=== PATIENT | male | born 1955 | race Caucasian/White ===

== ENCOUNTER 2024-03-29 13:51 | Outpatient (AMB) | payer OTHER, SELFPAY ==
--- NOTE | 2024-03-29 13:54 | MHC.OFFVIS ---
Vital Signs 03/29/24 13:59 Height 5 ft 7 in Weight 223 lb 2 oz BMI 34.9 BP 137/73 Blood Pressure Location Lt brachial Position Sitting Pulse 87 Pulse Source Pulse Oximeter Pulse Oximetry (%) 99 Oxygen Delivery Method Room Air Intake Visit Reasons: Sciatica Intake Note: Pain today Etcher Enameling Required: No Accompanied by: Self / Same As Patient Allergies No Known Allergies Allergy (Verified 03/29/24 13:58) HPI HPI Sciatica : Details: Patient is a pleasant 68-year-old male with history of diabetes (A1C.8.5, pending Endocrine evaluation), chronic low back pain, CAD s/p coronary artery bypass graft and aortic valve replacement (2022), arthritis, and h/o right knee arthroscopy presents today for initial evaluation of lower back pain with radiation into bilateral lower extremities. Patient denies any recent trauma, injury or falls but reports sleeping fall on ice accident about 5 years ago while he was residing in [place]. Patient recently moved to [place] from [place] in August 2023 and is in the process of establishing care with PCP and specialty providers. Patient reports he completed MRI and physical therapy in 2019 after a fall accident but did not need any spine evaluation or injections. Back pain is axial and also radiates into bilateral buttocks and down into bilateral lateral hip and posterior lower extremities with associated numbness and tingling in both feet. Reports bilateral groin pain with external rotations and weight bearing. Pain is most severe upon getting up in the morning and when getting out of bed with pain rated at 7-8/10 and least severe at evening or rest, rated 1-2/10. Patient reports intermittent stress incontinence and is interested in Urology evaluation. Denies any fever or chills, weakness, burning pain, rash or infection, bowel dysfunction or saddle anesthesia. Patient is a former smoker with history of 2 PPD. Reports very little alcohol consumption and 4 cups of regular coffee daily. He has tried CBD cream in the past and currently utilizes marijuana edibles from local dispensary for sleep and pain with minimal relief. 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 Lives alone and independently. Reports difficulty falling and maintaining sleep due to pain. Oswestry low back pain disability score=7 (mild disability) Location: Lower back radiates down bilateral legs, bilateral hip pain Duration: Chronic pain for over 5 years, slip and fall on ice in 2019 Characteristics of symptom or complaint: Sharp, shooting, radiating, jumping, aching, heavy, throbbing Aggravating or associated factors: Getting out of bed, standing, twisting, climbing pain, weather changes Relieving factors: Rest, gabapentin, Tylenol, Aleve, diclofenac gel Treatment: PT >10 years ago, acupunture, MRI in [address] [facility] Medical History Diabetes mellitus Hyperlipidemia Hypertension Right bundle branch block Surgical History Aortic valve replaced S/P triple vessel bypass (~08/2022) Social History Alcohol intake: current Alcohol intake frequency: holidays/special occasions only Patient Tobacco Use Status: Former Tobacco user Substance Use Type: Marijuana Review of Systems Const All systems reviewed & are unremarkable except as noted in HPI and below Physical Exam Vital Signs: Last Vital Signs Pulse 87 03/29/24 13:59 BP 137/73 03/29/24 13:59 Pulse Ox 99 03/29/24 13:59 Oxygen Delivery Method Room Air 03/29/24 13:59 BMI result Body Mass Index 34.9 General: Appears afebrile. Alert and oriented. Mood and affect appropriate. Follows and participates in conversation appropriately. Respiratory effort is unlabored. No cough. Able to transition from sit to stand unassisted. Ambulates with bilaterally normal heel strike and toe off. General: Yes no CVA tenderness Back/Spine/Pelvis Other: Patient is able to walk and stand on heels and tip toes with no difficulties demonstrating good motor tone. Normal gait, no limping. Can flex forward to 70-75 degrees and extend to 5-10 degrees before experiencing lumbar pain. Demonstrates 5/5 strength of quadriceps bilaterally as well as flexion/dorsiflexion of bilateral feet against resistance. 2+ pedal pulses bilaterally. Straight leg rise with dorsiflexion negative bilaterally. Dimished patellar and achilles reflexes bilaterally. Facet loading test positive bilaterally. Edgar sign, Juanpablo?s, Pelvic compression and Stinchfield tests are positive bilaterally, left>right. Moderate groin pain with I/E hip rotations, right>left. Valsalva maneuver negative. Back: no CVA tenderness Cervical Spine: cervical ROM normal, cervical muscular tenderness, No Cervical spine tenderness and No step off deformity Thoracic/Lumbar Spine: thoracic and lumbar spine normal to inspection, No Thoracic/lumbar spine scar(s), Lasegue's sign negative, straight leg raise negative bilaterally, pain with thoraco-lumbar ROM, paraspinal muscle tenderness bilaterally in the upper thoracic, in the mid lumbar and in the lower lumbar, thoraco-lumbar ROM limited, No thoracic spinal tenderness and lumbar spinal tenderness at L4 and at L5 Pelvis: buttock tenderness bilaterally Sacroiliac joints: bilaterally tender to palpation Extrem General: Yes capillary refill normal, Yes no clubbing, cyanosis or edema and Yes no calf tenderness Results Reviewed Results Reviewed: No imaging results are available for review today. Assessment & Plan Assessment & Plan (1) DJD (degenerative joint disease), lumbar: Code(s): M47.816 - Spondylosis without myelopathy or radiculopathy, lumbar region Category: Medical (2) Low back pain radiating to both legs: Code(s): M54.50 - Low back pain, unspecified; M79.604 - Pain in right leg; M79.605 - Pain in left leg Category: Medical (3) Lumbosacral spondylosis: Code(s): M47.817 - Spondylosis without myelopathy or radiculopathy, lumbosacral region Category: Medical (4) Bilateral hip pain: Code(s): M25.551 - Pain in right hip; M25.552 - Pain in left hip Category: Medical (5) Sacroiliac joint pain: Code(s): M53.3 - Sacrococcygeal disorders, not elsewhere classified Category: Medical (6) Male stress incontinence: Code(s): N39.3 - Stress incontinence (female) (male) Category: Medical Plan Lumbar spine and hip imaging to assess degree of degenerative changes, any subluxation, listhesis, compression fractures or pars defects. Recommend formal physical therapy to reduce pain and optimize mobility, improve strength, proprioception, and neuromuscular coordination. Script provided. Discussed interventional treatments for axial and radicular low back pain and bilateral hip pain with SI joint pain components. Patient has pending Endocrinology evaluation for diabetes with elevated A1c levels >8.5 per patient. Urology referral for further evaluation of stress incontinence. All questions and concerns have been answered and patient agreed with the treatment plan. Follow-up for x-ray results and sooner as needed. Orders: Orders XR hip BI w PEL1V Today M25.551 - Pain in right hip, M25.552 - Pain in left hip, M53.3 - Sacrococcygeal disorders, not elsewhere classified PT Evaluation and Treatment Today M25.551 - Pain in right hip, M25.552 - Pain in left hip, M47.816 - Spondylosis without myelopathy or radiculopathy, lumbar region, M47.817 - Spondylosis without myelopathy or radiculopathy, lumbosacral region, M53.3 - Sacrococcygeal disorders, not elsewhere classified, M54.50 - Low back pain, unspecified, M79.604 - Pain in right leg, M79.605 - Pain in left leg XR lumbar spine 4V min Today M47.816 - Spondylosis without myelopathy or radiculopathy, lumbar region, M47.817 - Spondylosis without myelopathy or radiculopathy, lumbosacral region, M54.50 - Low back pain, unspecified, M79.604 - Pain in right leg, M79.605 - Pain in left leg Referrals Urology Referral E11.9 - Type 2 diabetes mellitus without complications, N39.3 - Stress incontinence (female) (male) Coding Level of Care Code New Pt Level 4 (99198) Complex EM visit Add On G2211 Diagnoses DJD (degenerative joint disease), lumbar M47.816 Low back pain radiating to both legs M54.50; M79.604; M79.605 Lumbosacral spondylosis M47.817 Bilateral hip pain M25.551; M25.552 Sacroiliac joint pain M53.3 Male stress incontinence N39.3
[2024-03-29 13:59] VITALS: BP 137/73; PULSE 87; O2SAT 99; BMI 34.9
== END 2024-03-29 14:38 | disposition home or self-care (01) ==
PROVIDERS: PCP Registered Nurse; Referring Provider Registered Nurse; Visit Provider Nurse Practitioner Family
DX: M47.816 Spondylosis without myelopathy or radiculopathy, lumbar region (principal); M54.50 Low back pain, unspecified; M79.604 Pain in right leg; M79.605 Pain in left leg; M47.817 Spondylosis without myelopathy or radiculopathy, lumbosacral region; M25.551 Pain in right hip; M25.552 Pain in left hip; M53.3 Sacrococcygeal disorders, not elsewhere classified; N39.3 Stress incontinence (female) (male)
CPT/HCPCS: 99204

== ENCOUNTER 2024-03-29 13:51 | Outpatient (REF) | payer OTHER, SELFPAY ==
--- NOTE | ~2024-03-29 | XR_ITS ---
EXAMINATION: XR LUMBAR SPINE CLINICAL INFORMATION: Spondylosis without myelopathy or radiculopathy, lumbar region M47.816. COMPARISON: None TECHNIQUE: 5 views of the lumbar spine. FINDINGS: Normal alignment and lumbar lordosis. Mild to moderate multilevel degenerative disc disease most prominent at L4-L5, and facet arthrosis of the lower lumbar levels. No fracture. No spondylolysis. XR/XR lumbar spine 4V min IMPRESSION: Mild to moderate multilevel degenerative disc disease most prominent at L4-L5. Electronically signed by: Myke Zaldivar MD 05/06/2024 12:03 PM [facility]
--- NOTE | ~2024-03-29 | XR_ITS ---
EXAMINATION: XR BILATERAL HIPS WITH AP PELVIS CLINICAL INFORMATION: Pain in right hip M25.551. COMPARISON: None available. TECHNIQUE: AP and frog-leg lateral views of each hip and an AP view of the pelvis. FINDINGS: Mild bilateral hip osteoarthritis. No acute fracture or malalignment. Enthesopathy of the greater trochanters and ischial tuberosities. Prominent vascular calcifications. XR/XR hip BI w PEL 1V IMPRESSION: Mild bilateral hip osteoarthritis. No acute fracture. Electronically signed by: Myke Zaldivar MD 05/06/2024 12:05 PM [facility]
--- OUTSIDE RECORDS SUMMARY | 2024-03-31 16:15 | XMS_ITS | Continuity of Care Document ---
Author Organization [facility] Address [facility] [address] [facility] [address] [place] [phone] Phone Care Team Providers Care Equal Opportunity Director Name Role Phone Campbell ARREAGA, FACP, CDE, Clint Unavailable Yudi vailable Allergies, Adverse Reactions, Alerts Substance Reaction Status Criticality No Known Allergies Active No Inform ation Medications Medication Instructions Dosage Effective Dates (start - stop) Status Comments XIGDUO XR 5-1000MG TB24 TAKE TWO TABLETS BY MOUTH EVERY DAY IN THE MORNING WITH FOOD 2 tablet - Active Soliqua 100/33 100 unit-33 mcg/mL subcutaneous insulin pen 40 units per day - Active 90 day sup ply OneTouch Verio test strips use by test route 3 times every day Not Available - Active FreeStyle Elina 3 Sensor device Change every 14 days - Active BD PEN NEEDLE SHORT 31G X 8 MM MISC USE 1 DAILY 1 - Active ATORVASTATIN CALCIUM 80MG TABS TAKE ONE TABLET BY MOUTH EVERY DAY - Active ORDER: Vitamin B12, 500 ???g a day - Active metoprolol succinate ER 25 mg tablet,extended release 24 hr take 1 tablet by ORAL route every day 25 MG - Active aspirin 81 mg chewable tablet chew 1 tablet by oral route every day 81 MG - Active Procedures Procedure Date Hemoglobin; A1C Diast Bp 80-89 Mm Hg OFFICE/OUTPATIENT VISIT, EST-Detailed Se p Diast Bp < 80 Mm Hg Syst Bp < 130 Mm Hg OFFICE/OUTPATIENT VISIT, EST-Detailed Alba y Diast Bp < 80 Mm Hg Syst Bp < 130 Mm Hg OFFICE/OUTPATIENT VISIT, EST-Detailed Ja n Hemoglobin; A1C Diast Bp < 80 Mm Hg Syst Bp < 130 Mm Hg OFFICE/OUTPATIENT VISIT, EST-Detailed Ju Office/Outpatient Visit, Est Diast Bp 80-89 Mm Hg Syst Bp < 130 Mm Hg OFFICE/OUTPATIENT VISIT, EST-Detailed Ap Hemoglobin; A1C Diast Bp < 80 Mm Hg Syst Bp >=130-139Mm Hg OFFICE/OUTPATIENT VISIT, EST-Detailed Oc Methylprednisolone 40 MG inj Marcaine LIDOCAINE 5+ CC sterile syringe&needle Drain/Inject, Joint/Bursa Office/Outpatient Visit, Est INJ PARAVERT F JNT L/S 1 LEV Infectious agent detection by nucleic ac id Office/Outpatient Visit, Est Office/Outpatient Visit, Est Office/Outpatient Visit, Est Diast Bp 80-89 Mm Hg Syst Bp >=130-139Mm Hg OFFICE/OUTPATIENT VISIT, EST-Detailed Ap X-Ray Exam C-Spine, AP & Lat Office/Outpatient Visit, Est Wrist cock-up non-molded Wrist cock-up non-molded Office/Outpatient Visit, Est X-Ray knee, complete Office/Outpatient Visit, Est Nrv cndj tst 5-6 studies Electromyography With Nerve Conduction < 6 Muscles Office/Outpatient Visit, New X-Ray Hand, 3 Views 5+ CC sterile syringe&needle Methylprednisolone 20 MG inj LIDOCAINE Inj Tendon Sheath/Ligament Office/Outpatient Visit, New Diast Bp 80-89 Mm Hg Syst Bp >=130-139Mm Hg OFFICE/OUTPATIENT VISIT, EST-Detailed No OFFICE/OUTPATIENT VISIT, EST-Detailed Fe IMMUNIZATION ADMIN RIV4 VACC RECOMBINANT DNA IM Diast Bp < 80 Mm Hg Syst Bp < 130 Mm Hg OFFICE/OUTPATIENT VISIT, EST-Detailed Oc OFFICE/OUTPATIENT VISIT, EST-Detailed Ma Hemoglobin; A1C OFFICE/OUTPATIENT VISIT, EST-Detailed Ja COLONOSCOPY AND BIOPSY Moderate Sedation; First 15 Minutes Moderare Sedation; Each Addl 15 Minutes COLON W/BIOPSY OFFICE/OUTPATIENT VISIT, NEW OFFICE/OUTPATIENT VISIT, EST-Detailed Se OFFICE/OUTPATIENT VISIT, EST-Detailed Ap OFFICE/OUTPATIENT VISIT, EST-Detailed De Hemoglobin; A1C OFFICE/OUTPATIENT VISIT, EST-Detailed Se Office/Outpatient Visit, Est Office/Outpatient Visit, New OFFICE/OUTPATIENT VISIT, EST-Detailed Ma Hemoglobin; A1C OFFICE/OUTPATIENT VISIT, EST-Detailed Oc OFFICE/OUTPATIENT VISIT, EST-Detailed Ma GLUCOSE BLOOD TEST OFFICE/OUTPATIENT VISIT, EST-Detailed Se GLUCOSE BLOOD TEST OFFICE/OUTPATIENT VISIT, EST-Detailed Ma GLUCOSE BLOOD TEST OFFICE/OUTPATIENT VISIT, EST-Complex May GLUCOSE BLOOD TEST OFFICE/OUTPATIENT VISIT, EST-Detailed Ma GLUCOSE BLOOD TEST OFFICE/OUTPATIENT VISIT, EST-Detailed No GLUCOSE BLOOD TEST OFFICE/OUTPATIENT VISIT, EST-Detailed Au GLUCOSE BLOOD TEST OFFICE/OUTPATIENT VISIT, EST-Detailed Ma GLUCOSE BLOOD TEST OFFICE/OUTPATIENT VISIT, EST-Detailed Fe GLUCOSE BLOOD TEST OFFICE/OUTPATIENT VISIT, EST GLUCOSE BLOOD TEST OFFICE/OUTPATIENT VISIT, EST GLUCOSE BLOOD TEST OFFICE/OUTPATIENT VISIT, EST GLUCOSE BLOOD TEST OFFICE/OUTPATIENT VISIT, EST GLUCOSE BLOOD TEST OFFICE/OUTPATIENT VISIT, EST OFFICE/OUTPATIENT VISIT, EST GLUCOSE BLOOD TEST FLU VACCINE AGE 3 & OVER, IM IMMUNIZATION ADMIN OFFICE/OUTPATIENT VISIT, EST GLUCOSE BLOOD TEST OFFICE/OUTPATIENT VISIT, EST OFFICE/OUTPATIENT VISIT, EST GLUCOSE BLOOD TEST OFFICE/OUTPATIENT VISIT, EST OFFICE/OUTPATIENT VISIT, EST GLUCOSE BLOOD TEST Office/Outpatient Visit, New REFRACTION OFFICE/OUTPATIENT VISIT, NEW GLUCOSE BLOOD TEST Office Consultation Advance Directives Directive Yes / No Effective Date File Name No Information Encounters Encounter Description Practice Location Reason(s) For Visit Diagnoses Date Provider Providers Copied on Encounter [facility] [facility] [address], [place], [place], [id number], [place] tel:[phone] [facility] No Information [address] [place] [address], [facility] [place], [place], [facility], . tel:[phone] Referring Provider: Rafael Lerma [address] [place] [address] [facility] [place], [place], [facility]. tel:[phone] [facility] [place] [address], [place], [place], [address] [place] [address], tel:[phone] [facility] No Information [address] [place] [address], [facility] [place], [place], [facility], . tel:[phone] [facility] [address], [address] [place] [address], tel:[phone] [facility] No Information [address] [place] [address], [facility] [place], [place], [facility], . 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 [place] [address], [facility] [place], [facility], . tel:[phone] Referring Provider: Rafael Lerma [address] [place] [address] [facility] [place], [address]. tel:[phone] [facility] [place] [address], [place], [place], [id number], tel:[phone] [facility] No Information [address] [place] [address], [facility] [place], [address], [place]. tel:[phone] OFFICE/OUTPAT IENT VISIT, EST-Detailed [facility] [place] [address], [place], [place], [id number], tel:[phone] [facility] diabetes (chief complaint) Type 2 diabetes mellitus with hyperglycemi aBilateral carotid bruitsMixed hyperlipidem iaB12 deficiencyTy pe 2 diabetes mellitus with diabetic nephropathyB papo mass index [BMI] 33.0-33.9, adult August-[address] [place] [address], [facility] [place], [address], [place]. tel:[phone] Consulting Provider: Eloise Paz MD, [address] [place] [address], [phone]. Referring Provider: Rafael Lerma Dr[facility] [address] [facility] [place], [address]. tel:[phone] [facility] [place] [address], [place], [place], [id number], tel:[phone] [facility] No Information [address] [place] [address], [facility], [address], [place]. tel:[phone] OFFICE/OUTPAT IENT VISIT, EST-Detailed [facility] [address], [id number], tel:[phone] [facility] diabetes (chief complaint) Type 2 diabetes mellitus with hyperglycemi aType 2 diabetes mellitus with diabetic nephropathyB ilateral carotid bruitsMixed hyperlipidem iaCKD (chronic kidney disease), stage IBody mass index [BMI] 33.0-33.9, bsqleG65 deficiencyBo dy mass index [BMI] 35.0-35.9, adult [address] [place] [address], [facility] [place], [place], [facility], . tel:[phone] Referring Provider: Rafael Lerma [address] [place] [address] [facility] [place], [place], [facility]. tel:[phone] OFFICE/OUTPAT IENT VISIT, EST-Detailed [facility] [address], [id number], tel:[phone] [facility] diabetes (chief complaint) Type 2 diabetes mellitus with hyperglycemi aMixed hyperlipidem iaType 2 diabetes mellitus with diabetic nephropathyB ilateral carotid bruitsBody mass index [BMI] 33.0-33.9, adultEssenti al (primary) hypertension [address] [facility] Just[place], [facility], [address], . tel:[phone] Referring Provider: Rafael Lerma Dr[facility] [place] [facility] [place], [place], [facility]. tel:[phone] Office/Outpat ient Visit, Est [facility], [address], [place], [address], [place] tel:[phone] [facility] Right hip pain (chief complaint) Unilateral primary osteoarthrit is, right hipBody mass index [BMI] 33.0-33.9, adultLow back pain, unspecified 2 Lee James. [address] [facility], [facility], [place], [address], [place]. tel:[phone] Referring Provider: Jacob Howard, [address] [facility], [place], [address]. tel:[phone] OFFICE/OUTPAT IENT VISIT, EST-Detailed [facility] [facility] [address] [facility], [place], [place], [address], tel:[phone] [facility] diabetes (chief complaint) Type 2 diabetes mellitus with hyperglycemi aCKD (chronic kidney disease), stage IBody mass index [BMI] 32.0-32.9, [id number] deficiencyBi lateral carotid bruitsEssent ial (primary) hypertension Muscle painBody mass index [BMI] 33.0-33.9, adult Jul- 2 Campbell Jaramillo. [address] [place] [address], [facility] [place], [address], [place]. tel:[phone] Referring Provider: Clint Hightower I, Rafael Cont[address]ras Dr[address] [facility] [address] [facility] [place], [address]. tel:[phone] OFFICE/OUTPAT IENT VISIT, EST-Detailed [facility] [facility] [address] [facility], [place], [place], [id number], [place] tel:[phone] [facility] diabetes (chief complaint) Type 2 diabetes mellitus with hyperglycemi aMixed hyperlipidem iaB12 deficiencyBi lateral carotid bruitsCKD (chronic kidney disease), stage IType 2 diabetes mellitus with diabetic nephropathyB papo mass index [BMI] 32.0-32.9, adult Oct- 1 Campbell Jaramillo. [address] [place] [address], [facility] [place], [address], [place]. tel:[phone] Referring Provider: Clint Hightower I, [address] [facility] [address] [facility] [place], [address]. [phone] Office/Outpat ient Visit, Est [facility], [address] [address], [place], [place], [address], [place] tel:[phone] [facility] Radiculopath y, cervical regionBody mass index [BMI]30.0-30 .9, adultCervica l disc disorder, unspecified, unspecified cervical regionImping ement syndrome of left shoulder Sep-2 1 Louis Kumar. [address], [address] , [place], [address], [place]. tel:[phone] Referring Provider: José Myers, [address] [facility], [place], [address]. tel:[phone] [facility], [address] [address], [place], [place], [address], [place] tel:[phone] [facility] No Information Randell- 1 Louis Kumar. [address], [facility] , [place], [address], [place]. tel:[phone] Referring Provider: José Myers, [address] [facility] , [place], [address]. tel:[phone] [facility], [address] [address], [place], [place], [address], [place] tel:[phone] [facility] Encounter for other preprocedura l examination 1 Louis Kumar. [address], [address] , [place], [address], [place]. tel:[phone] Referring Provider: Cristina Rider, [address] [address], [place], [address]. [phone] Office/Outpat ient Visit, Est [facility], [address] [address], [place], [place], [address], [place] tel:[phone] [facility] CervicalgiaR adiculopathy , cervical regionOther spondylosis with radiculopath y, cervical region 1 Louis Kumar. [address], [address] , [place], [address], [place]. tel:[phone] Referring Provider: José Myers, [address] [facility] , [place], [address]. [phone] Office/Outpat ient Visit, Est [facility], [address] [address], [place], [place], [address], [place] tel:[phone] [facility] CervicalgiaR adiculopathy , cervical region 1 Louis Kumar. [address], [address] , [place], [address], [place]. tel:[phone] Referring Provider: José Myers, [address] [facility] , [place], [address]. tel:[phone] Office/Outpat ient Visit, Est [facility], [address] [address], [place], [place], [address], [place] tel:[phone] [facility] Pain in right kneeUnilater al primary osteoarthrit is, right kneeUnspecif ied internal derangement of right kneeDerangem ent of unspecified medial meniscus due to old tear or injury, right kneeSprain of anterior cruciate ligament of right knee, initial encounterBod y mass index [BMI] 31.0-31.9, adult August-- 1 Lee James. [address] [facility], [facility] , [place], [address], [place]. tel:[phone] Referring Provider: Jacob Howard, [address] [facility], [place], [address]. tel:[phone] OFFICE/OUTPAT IENT VISIT, EST-Detailed [facility] [facility] [address] [facility], [place], [place], [address], [place] tel:[phone] [facility] diabetes (chief complaint) Type 2 diabetes mellitus with hyperglycemi aMixed hyperlipidem iaEssential (primary) hypertension CKD (chronic kidney disease), stage IType 2 diabetes mellitus with diabetic nephropathyB ilateral carotid rcxvyfR02 deficiencyBo dy mass index [BMI] 31.0-31.9, adult Jul-2 1 Campbell Jaramillo. [address] [place] [address], [facility] [place], [address], [place]. tel:[phone] Referring Provider: Clint Hightower I, [address] [place] [address] [facility] [place], [address]. tel:[phone] Office/Outpat ient Visit, Est [facility], [address] [facility], [place], [place], [address], [place] tel:[phone] [facility] Neck pain (chief complaint) CervicalgiaB papo mass index [BMI] 33.0-33.9, adultRadicul opathy, cervical region Jul- 1 Louis Kumar. [address], [facility], [place], [address], . tel:[phone] Referring Provider: Thien Bush, [address] [facility], [place], [address]. tel:[phone] Office/Outpat ient Visit, Est [facility], [address] [address], [place], [place], [address], [place] tel:[phone] [facility] Carpal tunnel syndrome, right upper limbTrigger finger, left ring fingerBody mass index [BMI] 33.0-33.9, adultPain in left wristPain in right wrist Apr- 1 Eleazar Neumann. [address] , [place], [address], . tel:[phone] Office/Outpat ient Visit, Est [facility], [address] [address], [place], [place], [address], [place] tel:[phone] [facility] Right knee pain (chief complaint) Pain in right kneeUnilater al primary osteoarthrit is, right kneeUnspecif ied internal derangement of right kneeDerangem ent of unspecified medial meniscus due to old tear or injury, right kneeSprain of anterior cruciate ligament of right knee, initial encounterBod y mass index [BMI] 33.0-33.9, adult Mar-0 - 1 Lee James. [address] , [place], [address], [place]. tel:[phone] Office/Outpat ient Visit, [facility], [address] [address], [place], [place], [address], [place] tel:[phone] [facility] Carpal tunnel syndrome, right upper limbBody mass index [BMI] 33.0-33.9, adult Mar-0 - 1 Louis Kumar. [address] , [place], [address], [place]. tel:[phone] Office/Outpat ient Visit, [facility], [address] [address], [place], [place], [address], [place] tel:[phone] [facility] Right hand pain (chief complaint) Carpal tunnel syndrome, right upper limbTrigger finger, left ring fingerBody mass index [BMI] 33.0-33.9, adult Fe- 1 Eleazar Neumann. [address], [facility] , [place], [address], [place]. tel:[phone] Referring Provider: Thien Bush, [address] [facility], [place], [address]. 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 [address] [facility] [address], [facility] [place], [place], [facility], [place]. tel:[phone] Referring Provider: Clint Hightower I, Rafael Cont[address]ras Dr[address] [facility] [address] [facility] [place], [address]. tel:[phone] OFFICE/OUTPAT IENT VISIT, EST-Detailed [facility] [address] [facility], [place], [place], [address], tel:[phone] [facility] diabetes (chief complaint) Type 2 diabetes mellitus with hyperglycemi aType 2 diabetes mellitus with diabetic nephropathyC KD (chronic kidney disease), stage IEssential (primary) hypertension Mixed hyperlipidem iaB12 deficiencyLe ft ankle swellingHand numbnessBody mass index (BMI) 35.0-35.9, adultBilater al carotid bruits 8-[address], [facility] [place], [address], [place]. tel:[phone] Referring Provider: Clint Hightower I, Rafael Contreras Dr[address] [facility] [address] [facility] [place], [place], [facility]. tel:[phone] OFFICE/OUTPAT IENT VISIT, EST-Detailed [facility] [address], [id number], tel:[phone] [facility] diabetes (chief complaint) Hand numbnessType 2 diabetes mellitus with hyperglycemi aMixed hyperlipidem iaCKD (chronic kidney disease), stage IType 2 diabetes mellitus with diabetic nephropathyE ssential (primary) hypertension Body mass index (BMI) 34.0-34.9, adult Oct 0-[address] [facility] 101, [facility] [place], [address], [place]. tel:[phone] Referring Provider: Clint Hightower I, Rafael [address]ras Dr[address] [facility] [address] [facility] [place], [address]. tel:[phone] OFFICE/OUTPAT IENT VISIT, EST-Detailed [facility] [place] [address], [place], [place], [id number], tel:[phone] [facility] diabetes (chief complaint) Type 2 diabetes mellitus with hyperglycemi aType 2 diabetes mellitus with diabetic nephropathyC KD (chronic kidney disease), stage IEssential (primary) hypertension Mixed hyperlipidem iaBody mass index (BMI) 34.0-34.9, adult [address] [facility] 101, [facility] [place], [facility], . tel:[phone] Referring Provider: Clint Hightower I, Rafael Contreras Dr[address] [facility] [address] [facility] [place], [place], [facility]. tel:[phone] OFFICE/OUTPAT IENT VISIT, EST-Detailed [facility] [address], [place], [place], [address], [place] tel:[phone] [facility] diabetes (chief complaint) Type 2 diabetes mellitus with diabetic nephropathyT ype 2 diabetes mellitus with hyperglycemi aCKD (chronic kidney disease), stage IEssential (primary) hypertension Mixed hyperlipidem ia [address], [facility] [place] [place], [address], [place]. tel:[phone] Referring Provider: Clint Hightower I, Rafael [address] [facility] [place], [address]. tel:[phone] [facility], [address] [facility], [address], [place], [address], [place] tel:[phone] [facility] No Information 9 Paul Westbrook. [address] [place] [address], [address], [place], [id number], [place]. tel:[phone] Referring Provider: Cristina Rider, [address] [facility] [address], [place], [address]. tel:[phone] [facility], [address] [facility] [address], [place], [address], [place] tel:[phone] [facility] No Information 9 Paul Westbrook. [address] [facility], [address], [place], [address], [place]. tel:[phone] OFFICE/OUTPAT IENT VISIT, NEW [facility], [address] [facility] [address], [address], [place], [address], tel:[phone] [facility] Colon Cancer Screening (chief complaint) Colon cancer screening 8 Paul Westbrook. [address] [facility], [address], [place], [address], [place]. tel:[phone] Referring Provider: Cristina Rider, [address] [place] [address], [address]. tel:[phone] [facility], [address] [place] [address], [address], tel:[phone] [facility] No Information 8 No Informatio n OFFICE/OUTPAT IENT VISIT, EST-Detailed [facility] [facility] [address], [place], [place], [address], [place] tel:[phone] [facility] diabetes (chief complaint) Type 2 diabetes mellitus with hyperglycemi aEssential (primary) hypertension B12 deficiencyTy pe 2 diabetes mellitus with diabetic nephropathyM ixed hyperlipidem iaCKD (chronic kidney disease), stage IFinger numbnessHear t murmur 8 Campbell Jaramillo. [address] [facility] 101, [facility] [place], [place], [facility], [place]. tel:[phone] Referring Provider: Clint Hightower I, [address] [facility] 101 [facility] [place], [place], [facility]. tel:[phone] OFFICE/OUTPAT IENT VISIT, EST-Detailed [facility] [address] [address], [place], [place], [id number], tel:[phone] [facility] diabetes (chief complaint) Type 2 diabetes mellitus with hyperglycemi aMixed hyperlipidem iaEssential (primary) hypertension CKD (chronic kidney disease), stage IType 2 diabetes mellitus with diabetic nephropathyB 12 deficiency Jul-0 3201 8 Campbell Baez [address] [facility] Justyn, [facility] [place], [place], [facility], . tel:[phone] Referring Provider: Rafael Lerma Dr. [facility] 101 [facility] [place], [place], [facility]. tel:[phone] OFFICE/OUTPAT IENT VISIT, EST-Detailed [facility] [address] [address], [place], [place], [address] [place] [address], tel:[phone] [facility] -[place] diabetes (chief complaint) Type 2 diabetes mellitus with hyperglycemi aType 2 diabetes mellitus with diabetic nephropathyM ixed hyperlipidem iaEssential (primary) hypertension Leg cramps Dec-0 7 Campbell Baez [address] [facility] 101, [facility] [place], [facility], . tel:[phone] Referring Provider: Clint Hightower I, Rafael Contreras Dr. [facility] 101 [facility] [place], [facility]. tel:[phone] OFFICE/OUTPAT IENT VISIT, EST-Detailed [facility] [address] [place] [address], [place], [place], [address] [place] [address], tel:[phone] [facility] -[place] diabetes (chief complaint) Type 2 diabetes mellitus with hyperglycemi aType 2 diabetes mellitus with diabetic nephropathyM ixed hyperlipidem iaEssential (primary) hypertension CKD (chronic kidney disease), stage I Sep-0 7 Campbell Baez [address] [place] [address], [facility], [address], [place]. tel:[phone] Referring Provider: Clint Hightower I, [address] [place] [address] [facility] [place], [address]. tel:[phone] Office/Outpat ient Visit, [facility], [address] [address], [place], [place], [id number], [place] tel:[phone] [facility] [place] Low back painOther intervertebr al disc degeneration , lumbar regionRadicu lopathy, lumbar regionOther intervertebr al disc displacement , lumbar region Nov- Salam Brenda. [address], [facility] , [place], [address], [place]. tel:[phone] Office/Outpat ient Visit, [facility], [address] [address], [place], [place], [id number], [place] tel:[phone] [facility] [place] Back pain and Back and left leg pain (chief complaint) Low back painOther intervertebr al disc degeneration , lumbar regionRadicu lopathy, lumbar regionOther intervertebr al disc displacement , lumbar region Sep- 7 Salam Brenda. [address] , [place], [address], [place]. tel:[phone] [facility] [facility] [address] [facility], [place], [place], [address], [place] tel:[phone] Diab And [facility] -[place] Essential (primary) hypertension Mixed hyperlipidem iaType 2 diabetes mellitus with diabetic nephropathy Jun-2 7 Campbell Marc. Rafael Alejandra, [facility] [place], [place], [facility], . tel:[phone] OFFICE/OUTPAT IENT VISIT, EST-Detailed [facility] [address] [address], [place], [place], [address], tel:[phone] [facility] -[place] diabetes (chief complaint) Type 2 diabetes mellitus with diabetic nephropathyT ype 2 diabetes mellitus with hyperglycemi aMixed hyperlipidem iaEssential (primary) hypertension Jun- 7 Campbell Alejandra, [facility] [place], [facility], . tel:[phone] Referring Provider: Rafael Lerma Dr. [facility] [facility] [place], [place], [facility]. tel:[phone] OFFICE/OUTPAT IENT VISIT, EST-Detailed [facility] [address] [address], [place], [place], [address], tel:[phone] [facility] -[place] diabetes (chief complaint) Type 2 diabetes mellitus with diabetic nephropathyM ixed hyperlipidem iaEssential (primary) hypertension Type 2 diabetes mellitus with hyperglycemi a 6 Campbell Alejandra, [facility] [place], [facility], . tel:[phone] Referring Provider: Rafael Lerma Dr. [facility] [facility] [place], [facility]. 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, [facility] [place], [facility], . tel:[phone] Referring Provider: Rafael Lerma Dr. [facility] [facility] [place], [place], [facility]. tel:[phone] OFFICE/OUTPAT IENT VISIT, EST-Detailed [facility] [address] [place] [address], [place], [place], [address], tel:[phone] [facility] -[place] diabetes (chief complaint) Diabetes II, Uncontrolled , W/Renal Manifestatio nsPROTEINURI AHypertensio n, BenignMixed Hyperlipidem ia Dec- [address] [facility] 101, [facility] [place], [facility], . tel:[phone] Referring Provider: Rafael Lerma Dr. [facility] 101 [facility] [place], [place], [facility]. tel:[phone] OFFICE/OUTPAT IENT VISIT, EST-Detailed [facility] [address] [address], [place], [place], [address], tel:[phone] [facility] -[place] diabetes (chief complaint) Diabetes II, Uncontrolled , W/Renal Manifestatio nsHypertensi on, BenignMixed Hyperlipidem iaPROTEINURI A May- [address] [place] [address], [facility] [place], [place], [facility], . tel:[phone] Referring Provider: Clint Hightower I, Rafael Contreras Dr. [facility] Just[place] [facility] [place], [place], [facility]. tel:[phone] OFFICE/OUTPAT IENT VISIT, EST-Complex [facility] [address] [address], [place], [place], [address], tel:[phone] [facility] -[place] diabetes (chief complaint) Diabetes II, Uncontrolled , W/Renal Manifestatio nsHypertensi on, BenignMixed Hyperlipidem iaPROTEINURI AErectile Dysfunction 0-[address] [place] [address], [facility] [place], [facility], . tel:[phone] Referring Provider: Clint Hightower I, Rafael [address]ras [address] [place] [address] [facility] [place], [place], [facility]. tel:[phone] [facility] [address] [place] [address], [place], [place], [address], tel:[phone] [facility] Diabetes II, Uncontrolled , W/Renal Manifestatio ns b-0 [address] [facility] Just[place], [facility] [place], [facility], . tel:[phone] OFFICE/OUTPAT IENT VISIT, EST-Detailed [facility] [address] [address], [place], [place], [address], tel:[phone] [facility] -[place] diabetes (chief complaint)Nu rse Comments (chief complaint) Hypertension , BenignMixed Hyperlipidem iaErectile DysfunctionP ROTEINURIA 4 Campbell Baez [address] [facility], [facility] [place], [facility], . tel:[phone] OFFICE/OUTPAT IENT VISIT, EST-Detailed [facility] [address] [address], [place], [place], [address], tel:[phone] [facility] -[place] diabetes (chief complaint)er ectile dysfunction (chief complaint) Diabetes II, Uncontrolled , W/Renal Manifestatio nsPROTEINURI AMixed Hyperlipidem iaHypertensi on, BenignErecti le Dysfunction 3 Campbell Zamora [facility], [facility] [place], [facility], . tel:[phone] OFFICE/OUTPAT IENT VISIT, EST-Detailed [facility] [address] [address], [place], [place], [address], tel:[phone] [facility] -[place] diabetes (chief complaint) Diabetes II, Uncontrolled , W/Renal Manifestatio nsHypertensi on, BenignMixed Hyperlipidem iaPROTEINURI A 3 Campbell Zamora 101, [facility] [place], [place], [facility], [place]. tel:[phone] OFFICE/OUTPAT IENT VISIT, EST-Detailed [facility] [address] [address], [place], [place], [address], tel:[phone] [facility] -[place] diabetes (chief complaint) Diabetes II, Uncontrolled , W/Renal Manifestatio nsMixed Hyperlipidem iaHypertensi on, Benign 3 Campbell Baez [address], [facility] [place], [place], [facility], . tel:[phone] OFFICE/OUTPAT IENT VISIT, EST-Detailed [facility] [address] [address], [place], [place], [address], [phone] [facility] -[place] diabetes type 2 (chief complaint) Diabetes II, Uncontrolled , W/Renal Manifestatio nsMixed Hyperlipidem iaHypertensi on, BenignPROTEI OSCAR 3 Campbell Clint. [address], [facility] [place], [place], [facility], . tel:[phone] OFFICE/OUTPAT IENT VISIT, EST [facility] [address], [place], [place], [address], tel:[phone] Di[facility] -[place] diabetes (chief complaint) Diabetes II, Uncontrolled , W/Renal Manifestatio nsHypertensi on, BenignMixed Hyperlipidem iaPROTEINURI A 2 Campbell Clint. [address], [facility] [place], [facility], . tel:[phone] OFFICE/OUTPAT IENT VISIT, EST [facility] [place] [address], [place], [place], [address], tel:[phone] [facility] -[place] diabetes (chief complaint) Diabetes II, Uncontrolled , W/Renal Manifestatio nsPROTEINURI AHypertensio n, BenignMixed Hyperlipidem ia 2 Campbell Clint. [address], [facility] [place], [place], [facility], . tel:[phone] OFFICE/OUTPAT IENT VISIT, EST [facility] [facility] [address], [place], [place], [address], tel:[phone] Di[facility] -[place] diabetes type 2 (chief complaint) Diabetes II, Uncontrolled Diabetes II, Uncontrolled , W/Renal Manifestatio nsMixed Hyperlipidem iaHypertensi on, BenignPROTEI OSCAR 2 Campbell Clint. [address] 101, [facility], [place], [place], [facility], [place]. tel:[phone] OFFICE/OUTPAT IENT VISIT, EST [facility] [address] [facility], [place], [place], [address], tel:[phone] [facility] -[place] diabetes (chief complaint) PROTEINURIAD iabetes II, Uncontrolled , W/Renal Manifestatio nsMixed Hyperlipidem iaHypertensi on, BenignJOINT PAIN-SHLDERP ROTEINURIA 2 Campbell Clint. [address] 101, [facility] [place], [place], [facility], . tel:[phone] OFFICE/OUTPAT IENT VISIT, EST [facility] [address] [facility], [place], [place], [address], tel:[phone] [facility] -[place] diabetes (chief complaint) Diabetes II, Uncontrolled , W/Renal Manifestatio nsHypertensi on, BenignMixed Hyperlipidem iaJOINT PAIN-SHLDER Fe 2 [place]pe[place] Clint. [address] 101, [facility] [place], [place], [facility], . tel:[phone] [facility], [address] [facility], [place], [place], [address], [place] tel:[phone] [facility] No Information 2 Oliver Ortiz. [address] [place], [place], [address], [place]. tel:[phone] OFFICE/OUTPAT IENT VISIT, EST [facility], [address] [place], [place], [address], [place] tel:[phone] [facility] No Information 2 Oliver Ortiz. [address] [place], [place], [address], [place]. tel:[phone] OFFICE/OUTPAT IENT VISIT, EST [facility] [address] [address], [place], [place], [address], [place] tel:[phone] [facility] -[place] diabetes (chief complaint)Er ectile Dysfunction (chief complaint) Mixed Hyperlipidem iaHypertensi on, BenignDiabet es II, Uncontrolled , W/Renal Manifestatio nsErectile DysfunctionI nfluenza Vaccine 1 Campbell Baez [address], [facility] [place], [address], . tel:[phone] OFFICE/OUTPAT IENT VISIT, EST [facility] [address] [facility], [place], [place], [address], tel:[phone] [facility] -[place] diabetes (chief complaint) Diabetes II, Uncontrolled , W/Renal Manifestatio nsMixed Hyperlipidem iaHypertensi on, Benign 1 Campbell Baez [address], [facility] [place], [address], [place]. tel:[phone] OFFICE/OUTPAT IENT VISIT, EST [facility], [address] [place], [place], [address], [place] tel:[phone] [facility] No Information 1 [place] Angel. [address] [place], [place], [address], [place]. tel:[phone] OFFICE/OUTPAT IENT VISIT, EST [facility] [facility] [address] [place] [address], [id number], tel:[phone] [facility] -[place] diabetes (chief complaint) Diabetes II, Uncontrolled Hypertension , BenignMixed Hyperlipidem ia 1 Campbell Clint. [address], [facility] [place], [facility], . tel:[phone] OFFICE/OUTPAT IENT VISIT, EST [facility] [address] [facility], [place], [place], [address], tel:[phone] [facility] Diabetes II, Uncontrolled Mixed Hyperlipidem iaHypertensi on, BenignVITAMI N D DEFICIENCY NOSDiabetes II, Uncontrolled VITAMIN D DEFICIENCY NOSHX-EXPOSU RE TO LEADHX-EXPOS URE TO LEAD 0 Campbell Clint. [address], [facility] [place], [facility], . tel:[phone] Office/Outpat ient Visit, [facility], [address] [place], [place], [address], [place] tel:[phone] [facility] No Information 0 Boyd Angel. [address] [place], [place], [address], [place]. tel:[phone] OFFICE/OUTPAT IENT VISIT, [facility] [address] [facility], [place], [place], [address], [place] tel:[phone] [facility] No Information 201 0 Campbell Jaramillo. [address], [facility] [place], [facility], . tel:[phone] Office Consultation [facility], [address] [facility], [address], [place], [address], tel:[phone] [facility]. No Information 200 7 Sherman Harris. [address] [facility], [address], [place], [place], [address], [place]. tel:[phone] Family History Family Member Type Diagnosis Age At Onset Sister Problem (finding) alzheimer's disease (Ca use Of ) 63 Mother Problem (finding) alzheimer's disease (Ca use Of ) Sister Problem (finding) Father Problem (finding) Father Problem (finding) coronary arter iosclerosis (Cause Of ) Father Problem (finding) Unknown (Cause Of ) Mother Problem (finding) hypertension Immunizations Vaccine Date Status Comments SARS-COV-2 (COVID-19) Modern a vaccine, mRNA, spike protein, LNP, preservative free, 100 mcg/0.5mL dose administered Note: [facility] ; Emily rce: Other Registry SARS-COV-2 (COVID-19) Modern a vaccine, mRNA, spike protein, LNP, preservative free, 100 mcg/0.5mL dose administered Note: [facility] ; Emily rce: Other Registry Influenza, Flublok, recombinant, quadrivalent, preservative free, 0.5mL IM administered Source: New Immunization Record influenza virus vaccine, inactivated administered Note: Given ; Source : New Immunization Record pneumococcal (PCV13) administered Note: [employer] ; Source: New Immunization Record pneumococcal (PPSV23) administered Note: Given ; Source: New Immunization Record Tdap administered Note: Given ; S ource: New Immunization Record Flu (split) (3 yrs or older) administered Source: New Immunization Record Payers Payer name Insurance type Covered democrat ID Authoriza tion(s) Sathya BCBS [facility] [id number] Social History Type Description Quantity Date Captured Comments Sex Male Smoking Status No Information Chief Complaint And Reason For Visit No Information Reason For Referral Reason For Referral No Information Plan Of Treatment Date Type Action Status Goal Lifestyle educat ion regarding diet completed Goal Lifestyle educat ion regarding diet completed Goal Lifestyle educat ion regarding diet completed Goal Lifestyle educat ion regarding diet completed Goal Lifestyle educat ion regarding diet completed Goal Lifestyle educat ion regarding diet completed Goal Lifestyle educat ion regarding diet completed Goal Lifestyle educat ion regarding diet completed Goal Lifestyle educat ion regarding diet completed Goal Working Manager / Nutr itionist. Due on due Goal Dilated eye exam . Due on due Goal nurse educator due Goal Influenza vaccin e. Due on due Goal Pneumococcal (PP V23) Vaccine. Due on due Goal Influenza vaccin e. Due on due Goal Working Manager / Nutr itionist. Due on due Goal Pneumococcal (PP V23) Vaccine. Due on due Goal nurse educator due Goal Dilated eye exam . Due on due Goal Lipid panel. Due on 016 due Goal nurse educator due Goal Dilated eye exam . Due on due Goal Influenza vaccin e. Due on due Goal Pneumococcal (PP V23) Vaccine. Due on due Goal Working Manager / Nutr itionist. Due on due Goal Pneumococcal (PP V23) Vaccine. Due on due Goal Hemoglobin A1C. Due on due Goal nurse educator due Goal Working Manager / Nutr itionist. Due on due Goal Dilated eye exam . Due on due Goal Lipid panel. Due on due Goal Influenza vaccin e. Due on due Goal Dilated eye exam . Due on due Goal Lipid panel. Due on due Goal Pneumococcal (PP V23) Vaccine. Due on due Goal nurse educator due Goal Hemoglobin A1C. Due on due Goal Working Manager / Nutr itionist. Due on due Goal Influenza vaccin e. Due on due Goal Lifestyle educat ion regarding diet completed Goal Working Manager / Nutr itionist. Due on due Goal nurse educator due Goal Dilated eye exam . Due on due Goal Lipid panel. Due on due Goal Pneumococcal (PP V23) Vaccine. Due on due Goal Influenza vaccin e. Due on due Goal Urine microalbum in. Due on due Goal Pneumococcal (PP V23) Vaccine. Due on due Goal nurse educator due Goal Working Manager / Nutr itionist. Due on due Goal Lipid panel. Due on due Goal Influenza vaccin e. Due on due Goal Dilated eye exam . Due on due Goal Working Manager / Nutr itionist. Due on due Goal Influenza vaccin e. Due on due Goal nurse educator due Goal Dilated eye exam . Due on due Goal Pneumococcal (PP V23) Vaccine. Due on due Goal Dilated eye exam . Due on due Goal Working Manager / Nutr itionist. Due on due Goal Foot exam. Due on 4 due Goal nurse educator due Goal Pneumococcal (PP V23) Vaccine. Due on due Goal Influenza vaccin e. Due on due Goal Lipid panel. Due on 016 due Goal Hemoglobin A1C. Due on due Goal Dilated eye exam . Due on due Goal Pneumococcal (PP V23) Vaccine. Due on due Goal GFR. Due on due Goal Working Manager / Nutr itionist. Due on due Goal nurse educator due Goal Urine microalbum in. Due on due Goal Foot exam. Due on 4 due Goal Influenza vaccin e. Due on due Goal GFR. Due on due Goal Pneumococcal (PP V23) Vaccine. Due on due Goal Hemoglobin A1C. Due on due Goal Lipid panel. Due on 014 due Goal Working Manager / Nutr itionist. Due on due Goal Urine microalbum in. Due on due Goal Foot exam. Due on 4 due Goal Influenza vaccin e. Due on due Goal Dilated eye exam . Due on due Goal nurse educator due Goal Diabetes educato r. Due on due Goal Dilated eye exam . Due on due Goal Pneumococcal (PP V23) Vaccine. Due on due Goal Foot exam. Due on 4 due Goal Influenza vaccin e. Due on due Goal Working Manager / Nutr itionist. Due on due Referral Ordered: [facility] : Family Medicine (related to Body mass index [BMI] 33.0-33.9, adult) ordered Referral Referred To: Cristina Dogulas [address] [place] [address], [phone] Ordered: Referrals: [facility] : Family Medicine. Cristina Douglas Consult and Advise Appointment date/timeframe: 09/13/2021 ordered Referral Ordered: Cristina Mendoza (related to Cervicalgia) ordered Referral Ordered: Kip Bobby DOAllopathic & Osteopathic Physicians : Family Medicine (related to Body mass index [BMI] 31.0-31.9, adult) ordered Referral Ordered: Cristina Mendoza (related to Carpal tunnel syndrome, right upper limb) ordered Referral Referred To: [address] [place] [address], [phone] Ordered: Referrals: Referrals: Cristina Mendoza. Consult and Advise Appointment date/timeframe: 07/27/2020 ordered Referral Ordered: Kip Bobby DO -[facility] : Family Medicine (related to Body mass index [BMI] 33.0-33.9, adult) ordered Referral Referred To: [address] [place] [address], [phone] Ordered: Referrals: Referrals: [facility] : Family Medicine. Kip Bobby DO Consult and Advise Appointment date/timeframe: 06/27/2020 ordered Referral Ordered: Kip Bobby DO -[facility] : Family Medicine (related to Body mass index [BMI] 33.0-33.9, adult) ordered Referral Ordered: Kip Bobby DO -[facility] : Family Medicine (related to Body mass index [BMI] 33.0-33.9, adult) ordered Referral Referred To: [address] [place] [address], [phone] Ordered: Referrals: Referrals: [facility] : Family Medicine. Kip Bobby DO Consult and Advise Appointment date/timeframe: 06/16/2020 ordered Referral Ordered: [facility] -Podiatry (related to Left ankle swelling) ordered Referral Referred To: [facility] [address] [place], [place], [phone] Ordered: Referrals: Podiatry. [facility] Location: [facility]. Consult and Treat Appointment date/timeframe: 06/14/2019 ordered Future Order: Lab Order Hemoglob in A1C (A1C), Appointment on: Ordered Future Order: Lab Order Vitamin B12 (B12), Appointment on: Ordered Future Order: Lab Order Comprehe nsive Metabolic Panel (CMP), Appointment on: Ordered Future Order: Lab Order Hemoglob in and Hematocrit (HH), Appointment on: Ordered Future Order: Lab Order TSH, Ult ra Sensitive w Reflex (TSHR), Appointment on: Ordered Future Order: Lab Order Microalb /Creat Ratio Random Urine (UMCR), Appointment on: Ordered Future Order: Lab Order Hemoglob in A1C (A1C), Appointment on: Ordered Future Order: Lab Order Vitamin B12 (B12), Appointment on: Ordered Future Order: Lab Order Comprehe nsive Metabolic Panel (CMP), Appointment on: Ordered Future Order: Lab Order TSH, Ult ra Sensitive w Reflex (TSHR), Appointment on: Ordered Future Order: Lab Order Microalb /Creat Ratio Random Urine (UMCR), Appointment on: Ordered Future Order: Radiology Order US Carotid Arteries Bilateral ([id number]), Appointment on: Ordered Future Order: Lab Order Hemoglob in A1C (A1C), Appointment on: Ordered Future Order: Lab Order Vitamin B12 (B12), Appointment on: Ordered Future Order: Lab Order Comprehe nsive Metabolic Panel (CMP), Appointment on: Ordered Future Order: Lab Order Hemoglob in and Hematocrit (HH), Appointment on: Ordered Future Order: Lab Order Lipid Pr ofile (LIPM), Appointment on: Ordered Future Order: Lab Order TSH, Ult ra Sensitive w Reflex (TSHR), Appointment on: Ordered Future Order: Lab Order Microalb /Creat Ratio Random Urine (UMCR), Appointment on: Ordered Future Order: Lab Order Hemoglob in A1C (A1C), Appointment on: Ordered Future Order: Lab Order ALT (SGP T) (ALT), Appointment on: Ordered Future Order: Lab Order AST (SGO T) (AST), Appointment on: Ordered Future Order: Lab Order Vitamin B12 (B12), Appointment on: Ordered Future Order: Lab Order Basic Me tabolic Panel (BMP), Appointment on: Ordered Future Order: Lab Order Microalb /Creat Ratio Random Urine (UMCR), Appointment on: Ordered Future Order: Lab Order Microalb /Creat Ratio Random Urine (UMCR), Appointment on: Ordered Future Order: Radiology Order MR I Cervical Spine Without Contrast ([id number]), Appointment on: Ordered Future Order: Radiology Order US Carotid Arteries Bilateral ([id number]), Appointment on: Ordered Future Order: Lab Order Basic Me tab Panel W/EGFR [8] ([id number]), Appointment on: , Sent on: Sent Future Order: Lab Order HEMOGLOB IN A1C ([id number]), Appointment on: , Sent on: Sent Future Order: Lab Order MICROALB UMIN,RAND U(W/CR) ([id number]), Appointment on: , Sent on: Sent Future Order: Lab Order Basic Me tab Panel W/EGFR [8] ([id number]), Appointment on: , Sent on: Sent Future Order: Lab Order HEMOGLOB IN A1C ([id number]), Appointment on: , Sent on: Sent Future Order: Lab Order MICROALB UMIN,RAND U(W/CR) ([id number]), Appointment on: , Sent on: Sent Future Order: Lab Order Basic Me tab Panel W/EGFR [8] ([id number]), Appointment on: , Sent on: Sent Future Order: Lab Order ALT ([id number]), Appointment on: , Sent on: Sent Future Order: Lab Order TSH ([id number]), Appointment on: , Sent on: Sent Future Order: Lab Order HEMOGLOB IN A1C ([id number]), Appointment on: , Sent on: Sent Future Order: Lab Order MICROALB UMIN,RAND U(W/CR) ([id number]), Appointment on: , Sent on: Sent Future Order: Lab Order LIPID PA TATUM ([id number]), Appointment on: , Sent on: Sent Future Order: Lab Order Hemoglob in A1c ([id number]), Appointment on: , Sent on: Sent Future Order: Lab Order Vitamin B12 ([id number]), Appointment on: , Sent on: Sent Future Order: Lab Order Microalb /Creat Ratio, Rand Ur ([id number]), Appointment on: , Sent on: Sent Future Order: Lab Order Lipid Pa tatum With LDL/HDL Ratio ([id number]), Appointment on: , Sent on: Sent Future Order: Lab Order Basic Me tabolic Panel (8) ([id number]), Appointment on: , Sent on: Sent Future Order: Lab Order Pt [facility] ([id number]), Sent on: Sent Future Order: Lab Order Microalb /Creat Ratio, Rand Ur ([id number]), Appointment on: , Sent on: Sent Future Order: Lab Order Basic [place] tabolic Panel (8) ([id number]), Appointment on: , Sent on: Sent Future Order: [facility] ([id number]), Sent on: Sent Future Order: Lab Order Hemoglob in A1c ([id number]), Appointment on: , Sent on: Sent Future Order: Lab Order CBC, Wayne telet; No Differential ([id number]), Appointment on: , Sent on: Sent Future Order: Lab Order Microalb /Creat Ratio, Randm Ur ([id number]), Appointment on: , Sent on: Sent Future Order: Lab Order Basic [place] tabolic Panel (8) ([id number]), Appointment on: , Sent on: Sent Future Order: [facility] ([id number]), Sent on: Sent Future Order: Lab Order Basic [place] tabolic Panel (8) ([id number]), Appointment on: , Sent on: Sent Future Order: Lab Order Pt [facility] ([id number]), Sent on: Sent Future Order: Lab Order Basic [place] tab Panel W/EGFR (8) ([id number]), Appointment on: , Sent on: Sent Future Order: Lab Order ALT ([id number]), Appointment on: , Sent on: Sent Future Order: Lab Order ALBUMIN ([id number]), Appointment on: , Sent on: Sent Future Order: Lab Order LH ([id number]), Appointment on: , Sent on: Sent Future Order: Lab Order PROLACTI N ([id number]), Appointment on: , Sent on: Sent Future Order: Lab Order SEX HORM ONE BINDING GLOBULIN ([id number]), Appointment on: , Sent on: Sent Future Order: Lab Order TESTBARB SOUSA,TOTAL ([id number]), Appointment on: , Sent on: Sent Future Order: Lab Order TSH ([id number]), Appointment on: , Sent on: Sent Future Order: Lab Order T4,FREE ([id number]), Appointment on: , Sent on: Sent Future Order: Lab Order HEMOGLOB IN A1C ([id number]), Appointment on: , Sent on: Sent Future Order: Lab Order MICROALB SCOOBYRAND U(W/CR) ([id number]), Appointment on: , Sent on: Sent Future Order: Lab Order LIPID PA TATUM ([id number]), Appointment on: , Sent on: Sent Future Order: Lab Order ALBUMIN (ALB), Appointment on: Ordered Future Order: Lab Order SEX HORM ONE BINDING GLOBULIN (SHBG), Appointment on: Ordered Future Order: Lab Order Testbarb sousa (TESTO), Appointment on: Ordered Future Order: Lab Order Hemoglob in A1C (A1C), Appointment on: Ordered Future Order: Lab Order ALT (SGP T) (ALT), Appointment on: Ordered Future Order: Lab Order Basic Me tabolic Panel (BMP), Appointment on: Ordered Future Order: Lab Order Panel Li pid (LIPID), Appointment on: Ordered Future Order: Lab Order TSH, Ult ra Sensitive (TSH), Appointment on: Ordered Future Order: Lab Order Microalb /Creat/Ratio/Random (UMCR), Appointment on: Ordered Future Order: Lab Order Microalb /Creat Ratio, Randm Ur ([id number]), Appointment on: , Sent on: Sent Future Order: Lab Order Basic Me tabolic Panel (8) ([id number]), Appointment on: , Sent on: Sent Future Order: Lab Order Basic Me tab Panel W/EGFR (8) ([id number]), Appointment on: , Sent on: Sent Future Order: Lab Order ALT ([id number]), Appointment on: , Sent on: Sent Future Order: Lab Order TSH ([id number]), Appointment on: , Sent on: Sent Future Order: Lab Order HEMOGLOB IN A1C ([id number]), Appointment on: , Sent on: Sent Future Order: Lab Order MICROALB UMIN,RAND U(W/CR) ([id number]), Appointment on: , Sent on: Sent Future Order: Lab Order LIPID PA TATUM ([id number]), Appointment on: , Sent on: Sent Future Order: Lab Order HGB A1C ([id number]), Appointment on: , Sent on: Sent Future Order: Lab Order ALT ([id number]), Appointment on: , Sent on: Sent Future Order: Lab Order URINALYS IS ([id number]), Appointment on: , Sent on: Sent Future Order: Lab Order Lead, Michel bloom (Adult) ([id number]), Appointment on: , Sent on: Sent Future Order: Lab Order MICROALB /CREATININE RATIO -RANDOM ([id number]), Appointment on: , Sent on: Sent Future Order: Lab Order LIPID VA OFILE ([id number]), Appointment on: , Sent on: Sent Future Order: Lab Order BASIC ME TABOLIC PANEL ([id number]), Appointment on: , Sent on: Sent History Of Present Illness Encounter Date Complaint History Of Prese nt Illness diabetes (comments) He is doing well. Status post AVR and CABG, completing cardiac rehab. No significant lows. Currently on Soliqua 40 units in the AM States FBS 150's. D 150's diabetes diabetes (comments) Here with gilbert hayward. Adm AVR and CABG. August 21-. Saw endocrine due to high BS. and modified regimen. Lantus 30 units QPM + Humalog 10 units each meal + extra >200. FNS 140. Before he was on Soliqua 60 with FBS 150 D 130 less chest pain and less shortness of breath. Cardiology is aware of this. Lost some weight. Eating OK. diabetes diabetes diabetes (comments) Son Vt, D in [place]. Weight gain with diet concnern and decrease mobility due to Sciatica-- Getting better. Soliqua 60 units a day [employer]. Fasting blood sugars mid 100's D Same diabetes diabetes (comments) To visit ricardo montes in [place]. He had muscle pain, we stopped the statin, but this is this did not help with the muscle pain but is improving but he developed sciatica. Chiropractor helped. Soliqua 60 units a day. No lows. PCP added two new medicines up his blood pressure. He saw his PCP for maycol yap -- His PCP recommended Debrox ear cleaning. It sounds like he was given meclizine as well Right hip pain Onset several ye ars. Severity level is moderate. It occurs intermittently and is worsening. Location: right and Hip. The pain radiates to the Right and Hip. The pain is Aching. Context: there is No injury. The pain is aggravated by Movement. The pain is relieved by Rest. Additional information: Pain. diabetes (comments) Multiple mus milena pain- PCP- + Ortho--PT -No help (had MRIs) Soliqua 60 units. No lows No log t States FBS Next checking--Last 2 days --FSB 160's. HAINES with stair climbing for a stairs--Saw PCP--He will eval. Not sure of diet has changed. Eating more crap. Going through a divorce. diabetes diabetes diabetes (comments) Undergoing a divorce. Bought a house. Lives alone. Doing OK not sure why he gained weight. Soliqua 60 unnits. Denies lows. . States FBS 130's D 120's. Seeing Ortho for cervical disk disease and causing ess activity. Orthopnea gave him an injection in December, but did not help much but he'll be seeing PT shortly diabetes (comments) Lives alone. Arm pain and hip, and shoulder pain- Affecting upper ext movement and sleep. -Saw Ortho and to get MRI of spine. he was also prescribed Neurontin but this caused dizziness so he stopped. however, in the last week or 2, he's been working hard moving boxes since he's moving, as noticed some lightheadedness upon arising only from bed in the morning. No falling or stumbling. Soliqua 60 units. No lows. No log States FBS/ D mid 100's He will need physical therapy for a torn anterior cruciate ligament coming up. diabetes Neck pain Onset 1 year. Se verity level is moderate. It occurs constantly and is stable. Location: Neck. The pain radiates to the The pain is Aching, Dull. Context: there is No injury. The pain is aggravated by bending, Lifting and turning head. The pain is relieved by Rest. Additional information: Pain. Right knee pain Onset several mo nths. It occurs Activity related and is stable. Location: Knee, right, Medial and Anterior and Patella. The pain radiates to the None and Right. The pain is Aching, Dull. Context: there is No injury and there is an work related. Other: tripped and fell. The pain is aggravated by bending, climbing (and descending) stairs, Movement and walking. The pain is relieved by Nothing, Heat and Ice and Rest. Associated symptoms include decreased mobility and swelling. Additional information: Pain. Right hand pain Onset several mo nths. Severity level is moderate. It occurs constantly and is worsening. Location: right and Hand. The pain radiates to the into forearm, Right and into hand. The pain is Aching, Sharp. Context: there is No injury. The pain is aggravated by Lifting and Movement. Additional information: Pain, Numbness and Tingling. diabetes diabetes (comments) fo r three years. To file for divorce. Looking to move in this area. Doing OK otherwise. Thinks foot is better. He saw Pod who used a brace temporarily. States FBS 130-150 D 110-120 Soliqua 60 units a day. Had a flu shot. diabetes diabetes (comments) Hand numbnes s this for many months, right greater than left, seems to be sleeping dependent. Banged left ankle a month ago--Swelling In some soreness continues Walking with work and eating OK> Soliqua 60 units a day. Denies lows FBNS 115 D 130 diabetes diabetes (comments) Stress with still getting off divorce. 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 Soliqua 60 units no lows. States FBS 1160's D 130. Mild 2nd finger bilat numbness and left 2nd finger stiff diabetes diabetes (comments) Dealing with the divorce, which is still stressful but better Better job. Living with step-son and his roommate. moved out. Soliqua 60 units No lows. FBS 150-170 D 130's diabetes diabetes (comments) Dealing with the divorce, which is still stressful. Living with step-son and his roommate. moved out. Soliqua 56 units . No log. Denies lows. States FBS 140-150 D 120's. Colon Cancer Screening Colon Cancer Screeni jaya (comments) Had a COL 11 years ago, normal.No new symptoms. Is due for a repeat so presents today to discuss.PMH: type 2 Dm, CKD, HTN, HLPSH: no abdominal surgeriesMeds: no NSAIDs dailyAllergies: NKDAFH: no colon cancer diabetes diabetes (comments) Divorce and job is stressful but OK. Soliqua 50 units. No lows. States FBS 150-180 D 120's Numbness of both third fingers for past month or so diabetes diabetes (comments) Getting divo rced- Stressful Soliqua 50 units at NIGHT! No lows. States his fastings and dinnertime blood sugars are averaging 150s. diabetes diabetes(comments) Getting divor suresh. Works also stressful -too many jobs. Xigduo started last week- tolerating it OK. Toujeo 50 units at night. No lows, meter downloaded. Occas calf cramp at night--one episde last week. diabetes diabetes(comments) 's Melano ma -remission- but marital strife. Had a herniated disc over the summer that is better. with PT. Toujeo 50 units at night. No lows. No log. Checks FBS 150-160 D 130-140's Back pain and Back a nd left leg pain Onset 1 month. It occurs constantly and is stable. Location: buttock, Thigh, Low Back and left and lower leg. The pain radiates to the Left, buttock, posterior thigh and Lower leg. The pain is Aching, Sharp. The pain is aggravated by walking and standing. The pain is relieved by Heat and Physical therapy and Ice. Additional information: Pain and Numbness. diabetes diabetes(comments) 's Melano ma -remission- Stress with job--Personalities. He will work it out. Mother last May age 93. Toujeo 50 units at night. No lows. Noticed his meter is 50 points higher than his old machine. His fasting blood sugars on the old machine are 130s in the new machine 180s Dinner 120/160 (old/new). No lows. To see PCP numbess in RT knee for a few months--T mick his PCP. diabetes(comments) ;'s tasia oam -remission--Doing well! Toujeo 50 units in the PM No lows, No log. FBS 140-160. D 140's Ran out Bydureon 6 months ago. diabetes Nurse Comments fasting bg 06-26 diabetes(comments) Stress with w ork (better) and with 's medical problems (Cancer treatments) but now in remssion. Toujeo 50 units in the PM No lows. Forgot log. FBS 150-170 D 150-170, Denies lows. No complaints of snoring diabetes diabetes diabetes (comments) Stress with work and with 's medical problems (Cancer treatments) but better. Lantus 40 units in the PM No lows. Forgot log. Dinner 140-160. FBS 140-160 diabetes diabetes (comments) Stress with 's medical problems (Cancer treatments) but better. Some weight loss with better diet. No log. FBS 160-170 2 hrs post L 120's. Denies Lows Lantus 35 at night. diabetes (comments) Refused a fl u shot Metastatic melanoma--Doing OK. Lantus 30 units per day. No Log. FBS 140's L? D/Bed 180-190 Bed No lows. Diet is off and no exercising and missing 2+ shots of Lantus/Byetta per week. Ran out of metformin/Aceon/Lipitor 4 weeks ago. diabetes Functional Status Date Functional Assessmen t No Information Instructions Date Instruction Additional Infor hayes He's under good cont rol of an A1c of 7.2%. Will again attempt to get in the Elina. Labs now, A1c in office next visit Related to Type 2 diabetes mellitus with hyperglycemia He is due to have a repeat ultrasound andd we will order Related to Bilateral carotid bruits Had been repleted. W ill check next visit. Related to B12 deficiency He is in goal a stat in.. We will check labs now. Related to Mixed hyperlipidemia He is due for an ultrasound Rela jed to Bilateral carotid bruits He is in goal a statin. Related to Mixed hyperlipidemia Had been repleted. W ill check next visit. Related to B12 deficiency This is relatively stable. Relat ed to Type 2 diabetes mellitus with diabetic nephropathy We will simplify his control. We will stop the Lantus and NovoLog, and restart Soliqua, at 40 units every morning, and increase this by four units every week as needed until his fasting blood sugars are averaging less than 120. this once he achieves that goal, I asked him to make sure that his pre-lunch and dinner time blood sugars are averaging less than 140. However, they wish to follow the NovoLog Lantus regimen until they run out which should be within a month We could consider Mounjaro in the future. I explained the advantages of the Elina 3 and limitations Related to Type 2 diabetes mellitus with hyperglycemia He is in goal a statin. Related to Mixed hyperlipidemia Had been repleted. W ill check next visit. Related to B12 deficiency This is relatively stable. Relat ed to Type 2 diabetes mellitus with diabetic nephropathy as A1c has increased due to lack of exercise and diet. He will correct meanwhile, to further help his weight loss, when he runs out of the Soliqua amount we will convert him to Tresiba 60 units in the morning, and Mounjaro 2.5 mg once a week for four weeks and increases the 5 mg weekly. I asked the call me if he goes Low. Related to Type 2 diabetes mellitus with hyperglycemia He is less than 50% mild disease. ultrasound was done in 2021 We will recheck next visit. Related to Bilateral carotid bruits He is in goal. . His PCP apparently added medication and he'll call me with the names. Related to Essential (primary) hypertension His A1c is improve s ignificantly what . Will not make any changes. A1c in office next visit. Related to Type 2 diabetes mellitus with hyperglycemia He is in goal a statin. Related to Mixed hyperlipidemia This is relatively stable. Relat ed to Type 2 diabetes mellitus with diabetic nephropathy He is less than 50% mild disease. ultrasound was done in 2020. We will recheck in 2022 Related to Bilateral carotid bruits RIGHT HIP AND LE GRETCHEN N - MINIMAL HIP JOINT DJDThe patient has osteoarthrosis of the hip. The etiology and natural history of this condition was explained in detail. I recommended activity modification, a home range of motion program, and explained I have had good success with intraarticular steroid injections if the condition becomes increasingly severe. The role of over the counter medication including acetaminophen and glucosamine was also discussed. Physical therapy is often very helpful to teach the patient appropriate exercises that would be beneficial.Maintaining a low body weight was emphasized. Hip replacement may be indicated if the patient experiences progressive pain and loss of function.The nature of the problem was discussed with the patient. The treatment options were outlined, including the risks and benefits of each of these options. The patient has decided to proceed with the following course of action.Activity modification - avoid activities that are causing painHome and/or gym exercises were explained and demonstrated to the patientThe importance of weight loss was discussed. Different resources to achieve this were outlined.The patient appears to have lumbar radiculopathy. The etiology and natural history of this condition was explained in detail. Conservative treatment is usually successful, including activity modification and therapeutic exercise. Physical therapy is often very helpful and was encouraged. If the problem is not resolving the patient should make a follow-up visit with one of the spine specialists in the practice.Continue NAPROXEN as prescribedFollow up with Dr. Myers Related to Unilateral primary osteoarthritis, right hip Lifestyle education regarding di et Related to Body mass index (BMI) 33.0-33.9, adult He has lost control due to lack of diet. He's going to correct this. Next week I asked him to check his sugars before each meal for three days and inform me of the results. If stable, and then asked to check the sugars a few times a week to make sure before breakfast and dinner are between 80 ??? 140 Related to Type 2 diabetes mellitus with hyperglycemia He is in goal. Related to Pedro gaytan (primary) hypertension I asked him to hold the atorvastatin for three weeks and then restart it and see how he feels. The pain resolves I asked the call me. If not I'll need to see his PCP. Related to Muscle pain I asked him to resta rt his supplement. Will recheck next visit Related to B12 deficiency He is less than 50% mild disease. ultrasound was done in 2020. We will recheck in 2022 Related to Bilateral carotid bruits As above. This is stable. Relate d to CKD (chronic kidney disease), stage I We'll recheck next visit. Relate d to Type 2 diabetes mellitus with diabetic nephropathy His A1c increased, m ost likely due to his cervical disease. He'll be seeing physical therapy so will not make an adjustment. Related to Type 2 diabetes mellitus with hyperglycemia He is in goal a statin. Related to Mixed hyperlipidemia Had been repleted. W ill check next visit. Related to B12 deficiency He is less than 50% mild disease. ultrasound was done generated 2020. Most likely will need around generated 2022. We'll treat this as above as well. Related to Bilateral carotid bruits - Subacromial inject ion today. Please see procedure note. - I will have the patient go to Physical Therapy to work on stretching, strengthening, and stabilization of the cervical spine. - I will have the patient attend physical therapy for shoulder ROM, stretching, strengthening , and stabilization.- OTC NSAIDs prn.- F/U with Dr. Ladd if shoulder symptoms persist. Related to Cervical disc disorder, unspecified, unspecified cervical region Lifestyle education regarding di et Related to Body mass index (BMI) 30.0-30.9, adult - At this time I bel ieve the patient would benefit from a transforaminal epidural steroid injection at C6 on the right. - He will continue PT after the injection if he gets pain relief. - The patient should continue current medications. - The patient will follow up 4 weeks after injection. Related to Cervicalgia - Currently I am uns ure if the patient would benefit from a cervical ANDRIA, We will hold off for now, but in the future a right C6 may help his symptoms. - I will have the patient go to Physical Therapy to work on stretching, strengthening, and stabilization of the cervical spine. Hew has had some complains of postural dizziness and will likely benefit from vestibular therapy. - I will prescribe the patient Mobic 7.5mg to be taken once daily for pain. - The patient will follow up in 4 weeks. Related to Cervicalgia The patient has oste oarthrosis of the knee. The etiology and natural history of this condition was explained in detail. I recommended activity modification, a home exercise program, and explained I have had good success with intraarticular steroid injections if the condition becomes increasingly severe. The role of over the counter medication including acetaminophen and glucosamine was also discussed. Physical therapy is often very helpful to teach the patient appropriate exercises that would be beneficial. Knee replacement may be indicated if the patient experiences progressive pain and loss of function.The nature of the problem was discussed with the patient. The treatment options were outlined, including the risks and benefits of each of these options. The patient has decided to proceed with the following course of action.Activity modification - avoid activities that are causing painA prescription was provided today for Physical Therapy.Continue NSAIDS OTC - NaproxenFollow up 6 weeks -- if symptoms persist or worsen consider knee injections (RIGHT PAIN > LEFT) Related to Pain in right knee Lifestyle education regarding di et Related to Body mass index (BMI) 31.0-31.9, adult This had been replet ed. We'll check labs next visit. Related to B12 deficiency He has minimal plaqu e on ultrasound in April 2020. Related to Bilateral carotid bruits He continues to make good progress. We'll not make any changes. Related to Type 2 diabetes mellitus with hyperglycemia This is stable. Related to CKD ( chronic kidney disease), stage I Not sure why this key s increased. We'll recheck this in 2 months and on return. Related to Type 2 diabetes mellitus with diabetic nephropathy He is in goal a statin. Related to Mixed hyperlipidemia He is in goal. We'll continue observing his morning dizziness. If this persists, if this persists, he needs to see his PCP Related to Essential (primary) hypertension - I will prescribe G abapentin 300mg to be taken nightly to help with nerve related pain. - I will order an MRI of the cervical spine to evaluate for any radiculopathy. - The patient will follow up after getting an MRI to discuss further treatment options which may include injections or surgical referral. Related to Cervicalgia Lifestyle education regarding di et Related to Body mass index (BMI) 33.0-33.9, adult Lifestyle education regarding di et Related to Body mass index (BMI) 33.0-33.9, adult RIGHT KNEE DJD - Chr onic ACL with Prior Meniscectomy and New onset PainThe patient has osteoarthrosis of the knee. The etiology and natural history of this condition was explained in detail. I recommended activity modification, a home exercise program, and explained I have had good success with intraarticular steroid injections if the condition becomes increasingly severe. The role of over the counter medication including acetaminophen and glucosamine was also discussed. Physical therapy is often very helpful to teach the patient appropriate exercises that would be beneficial. Knee replacement may be indicated if the patient experiences progressive pain and loss of function.The nature of the problem was discussed with the patient. The treatment options were outlined, including the risks and benefits of each of these options. The patient has decided to proceed with the following course of action.Acetaminophen - appropriate dosing and potential side effects were discussedActivity modification - avoid activities that are causing painHome and/or gym exercises were explained and demonstrated to the patient Related to Pain in right knee Lifestyle education regarding di et Related to Body mass index (BMI) 33.0-33.9, adult The patient will fol low up with the referring physician regarding the results of the test and further treatment. - The patient was reviewed with Dr. Nagel. Related to Carpal tunnel syndrome, right upper limb Lifestyle education regarding di et Related to Body mass index (BMI) 33.0-33.9, adult Lifestyle education regarding di et Related to Body mass index (BMI) 33.0-33.9, adult In goal on a statin Related to M ixed hyperlipidemia Ok for now. Related to Essen tial (primary) hypertension Improved. No change for now. Rel ated to Type 2 diabetes mellitus with hyperglycemia Will check next visit. Related t o Type 2 diabetes mellitus with diabetic nephropathy Had been repleted. W ill check next visit. Related to B12 deficiency As before--Needs U/S Related to Bilateral carotid bruits Stable. Related to CKD ( chronic kidney disease), stage I This is minimal but possibly present. We will check an ultrasound. Related to Bilateral carotid bruits needs to follow-up w ith PCP if this continues. Related to Hand numbness Concerned that he ma y beginning to develop an early neuropathic joint . Will consult Pod. I asked him to be careful by walking too much on his ankle, and be seen within a week Related to Left ankle swelling His A1c is increase most likely due to diet. I explained the need to cut out the snacks and after dinner food. We'll continue the current regimen. Related to Type 2 diabetes mellitus with hyperglycemia We'll first treat th is as above. He is on a statin. We will top the fish oil and recheck his lipids to see if he needs Vascepa. Related to Mixed hyperlipidemia He continues on a supplement. Re lated to B12 deficiency It's somewhat elevat ed today. We'll treat this as above. Related to Essential (primary) hypertension this has improved. Related to Ty pe 2 diabetes mellitus with diabetic nephropathy This has improved. Related to CK D (chronic kidney disease), stage I He is in goal. Related to Essen tial (primary) hypertension His A1c went up a li ttle bit. He is going to cut back on his sweets. We will make any changes at this point. Related to Type 2 diabetes mellitus with hyperglycemia This is fluctuating and we'll treat this as above. Related to Type 2 diabetes mellitus with diabetic nephropathy His triglycerides ar e somewhat elevated his LDL could be improved. Will increase Lipitor to 40 mg a day. Related to Mixed hyperlipidemia This is stable. Related to CKD ( chronic kidney disease), stage I This is elevated tod ay. He's been spiking intermittently and our office. I asked him to check his blood pressure next week and give me a call with it. He'll go to a drugstore. Also he will be seeing his PCP. Related to Essential (primary) hypertension His A1c decreased to 7.2%. He has made excellent improvement with better diet and exercise regimen. Will not make any changes. We'll check labs next visit. Related to Type 2 diabetes mellitus with hyperglycemia As above. Related to CKD ( chronic kidney disease), stage I He is on a statin. W e'll check next visit. Related to Mixed hyperlipidemia This have been stabl e. We'll check next visit. Related to Type 2 diabetes mellitus with diabetic nephropathy this is relatively s table. We'll treat as above Related to Type 2 diabetes mellitus with diabetic nephropathy This most likely is due to lack of exercise. I encouraged him. Meanwhile, I'll increase the Soliqua to 60 units a day Related to Type 2 diabetes mellitus with hyperglycemia We'll treat this as above. Relat ed to CKD (chronic kidney disease), stage I He is in goal. Related to Essen tial (primary) hypertension His triglycerides sh ould improve with the treatment of above. Related to Mixed hyperlipidemia Lifestyle education regarding di et Related to Body mass index (BMI) 36.0-36.9, adult This has improved si gnificantly. I recommend increase the Soliqua to 56 units a day. Related to Type 2 diabetes mellitus with hyperglycemia He does not seem to have carpal tunnel. I do recommend that he sees PCP. Related to Finger numbness This is stable Related to CKD ( chronic kidney disease), stage I This may be newly di scovered. I recommend he sees PCP. So Related to Heart murmur This has improved Related to Typ e 2 diabetes mellitus with diabetic nephropathy He's on a statin Related to Mixe d hyperlipidemia Slightly high today. We will watch without adjustment Related to Essential (primary) hypertension I encouraged him to restart the B12 Related to B12 deficiency This most likely is due to metformin. We'll start 500 ???g of B12, JAIL approved, daily. We'll check labs next visit. Related to B12 deficiency We'll check next visit. Related to Type 2 diabetes mellitus with diabetic nephropathy His A1c is stable bu t high. I explained the need to take Soliqua 25 units tonight, then no more at night, and then 0-60 minutes before the first meal the day. He should increase this by 4 units every week until his fasting sugars are averaging 120 Related to Type 2 diabetes mellitus with hyperglycemia He is on a statin. Related to Mi xed hyperlipidemia I asked him to check his blood pressure when he is relaxed at home or at the drugstore and let me know what it is. Related to Essential (primary) hypertension As below Related to CKD ( chronic kidney disease), stage I I showed him how to stretch. Rel ated to Leg cramps his A1c is improved significantly. In order to simplify his regimen, we will stop the Bydureon and Toujeo and start Soliqua 30 units up to an hour before breakfast. I asked him to increase the Soliqua by 4 units every week until his fasting blood sugars are averaging 100. For his colonoscopy, which will come soon, since he is on his older regimen, he will continue the Bydureon, hold the Xigdueo day of the prep, cut his insulin in half the night before the procedure, restart the Xigduo the day after the procedure, and insulin after colonoscopy, and monitor closely. Related to Type 2 diabetes mellitus with hyperglycemia This has improved. Related to Ty pe 2 diabetes mellitus with diabetic nephropathy This is stable. Continue statin. Related to Mixed hyperlipidemia He is in goal. Related to Essen tial (primary) hypertension His has improved los ble check next visit. Related to Type 2 diabetes mellitus with diabetic nephropathy We'll check labs nex t visit. He is on a statin. Related to Mixed hyperlipidemia His blood pressures acceptable for now. Related to Essential (primary) hypertension As above. Related to CKD ( chronic kidney disease), stage I his A1c is increase to my office at 9.3%. This most likely is due to missing by Efrain since the beginning of summer. He wishes to restart this. We will switch Invokamet to Xigduo XR 2 tablets in the morning. This is due to the black box concern. He has no history of bladder cancer. I explained it has see same precautions otherwise. He should stop the medicine if he cannot he for some reason and all. 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 Side effects and interactions discussed. * We discussed all treatment options, exercises and patient understands the diagnosis and the treatment options available. All questions answered. Related to Radiculopathy, lumbar region Lifestyle education regarding di et Related to Body mass index (BMI) 32.0-32.9, adult This is acceptable for now. Rela jed to Essential (primary) hypertension His A1c my office 7. 5% and he has made a significant improvement. I gave him a new meter to compare. It seems like his old meter is more accurate Related to Type 2 diabetes mellitus with hyperglycemia Check lipids next visit. Related to Mixed hyperlipidemia We'll check his labs now to comp are. Related to Type 2 diabetes mellitus with diabetic nephropathy He is in goal. Related to Essen tial (primary) hypertension We'll check next visit. 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 We'll continu e. Related to Mixed hyperlipidemia His A1c increase mos t likely due to not being on the Bydureon. He'll restart this. If after 4 weeks, his blood sugars greater than 120 in the morning, I asked to increase his to Toujeo 3 units every 3 days until assessing glucose remains under 120 Related to Type 2 diabetes mellitus with hyperglycemia His A1c is stable bu t too high. Will increase Toujeo to 60 units a day. I asked him to start walking, 150 minutes per week. I asked to call me, if his blood sugars averaging in the morning more than 120s Related to Type 2 diabetes mellitus with hyperglycemia He is on a statin. Related to Mi xed hyperlipidemia His blood pressure h as improved somewhat. We'll treat this as above. Related to Essential (primary) hypertension This is stable. We'l l treat this as above. Related to Type 2 diabetes mellitus with diabetic nephropathy Distress. He still t oo high. Will increase Aceon 8 mg a day, check a blood pressure and labs in 2 weeks. Related to Hypertension, Benign His A1c is improved but still not in goal. We will change his Lantus to Toujeo 50 units a day, I asked to call me if his fastings and/or before meals and blood sugars are not averaging between 80-140 Related to Diabetes II, Uncontrolled, W/Renal Manifestations This has improved. W e'll dresses as above and below Related to PROTEINURIA This is acceptable for now Relat ed to Mixed Hyperlipidemia His triglycerides ar e slightly elevated. It should improve with treatment of his diabetes. Related to Mixed Hyperlipidemia This is significantly improved R elated to PROTEINURIA He is in goal Related to Hyper tension, Benign His A1c has signific antly improved but still elevated. We'll increase his Lantus 42 units. I asked to call me if his fasting blood sugars are still more than 120 on average Related to Diabetes II, Uncontrolled, W/Renal Manifestations As before, workup wi th testosterone next visit. Related to Erectile Dysfunction Most likely not cont rolled to to not taking medication. We'll make it simpler by stopping the Byetta and place him on Bydureon. He is no family history or personal history of Thyroid cancer or MEN-2. He is no history pancreatitis I recommend that he continue the Byetta for 2 more weeks then stop. We will stop the metformin and Invokana and start Invokamet one tablet twice a day. -Call if blood sugars before meals and bed are not averaging between -80-150 Related to Diabetes II, Uncontrolled, W/Renal Manifestations Will restart Lipitor and check next visit. Related to Mixed Hyperlipidemia Treat as above Related to PROTE INURIA Restart Aceon. I ask ed him to send his blood pressure in 2 weeks. Related to Hypertension, Benign Assessments Type Assessment Date No Information Patient Care Teams Name Effective Dates (start - stop) Status Members No Information
== END 2024-03-29 13:52 | disposition home or self-care (01) ==
LOC: HO.XRAY 13:51
PROVIDERS: PCP Registered Nurse; Referring Provider Registered Nurse; Visit Provider Nurse Practitioner Family
DX: M25.551 Pain in right hip (principal); M25.552 Pain in left hip; M53.3 Sacrococcygeal disorders, not elsewhere classified; M47.816 Spondylosis without myelopathy or radiculopathy, lumbar region; M54.50 Low back pain, unspecified; M79.604 Pain in right leg; M79.605 Pain in left leg; M47.817 Spondylosis without myelopathy or radiculopathy, lumbosacral region
CPT/HCPCS: 72110; 73521

== ENCOUNTER → 2024-05-27 14:39 | Outpatient (BNVA) | payer OTHER, SELFPAY | PROVIDERS: PCP Registered Nurse; Visit Provider Urology | DX: N39.3 Stress incontinence (female) (male) (principal); R35.1 Nocturia; R35.0 Frequency of micturition; R39.198 Other difficulties with micturition; E11.9 Type 2 diabetes mellitus without complications | CPT/HCPCS: 51798; 81003 ==

== ENCOUNTER 2024-07-06 06:00 | Outpatient (RCR) | payer OTHER, SELFPAY ==
--- NOTE | 2024-05-25 14:56 | MHC.PT.EP ---
[facility] [place] Office [place] Office [place] Office [address] Jayme Farmer [address] [phone] F: [phone] F: [phone] F: [phone] F: [phone] Physical Therapy Plan of Care Date of Evaluation: 05/25/24 Date of Surgery: Diagnosis: low back pain Assessment: Patient is a 68 year old R handed male who presents with s/s consistent with low back pain. 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 Patient past medical history includes triple bypass and valve replacement, DM. Current impairments include pain, posture, ROM, strength, flexibility, activity tolerance and functional mobility. Functional limitations include decreased ability to turn, bend, lift, roll over, carry, push, pull. Patient is motivated with good rehab potential. Skilled PT will address impairments and functional limitations in order to achieve goals. Frequency and Duration: The patient will be seen 2x/week for 5 weeks Short Term Goals: I with HEP - 2 weeks AROM 75% and pain free - 3 weeks No AM zings for 1 week - 3 weeks Group Home Goals: Oswestry 10% or better - 5 weeks Max pain with work/daily activities - 2/10 - 5 weeks Demo proper transfer and lift mechanics - all lifts - 5 week 90/90 lacking 30 or less b/l - 5 weeks Min tight b/l gastroc - 5 weeks Treatment Plan: Modalities to reduce pain, spasms and effusion. Manual therapy to restore motion and function. Therapeutic exercise to improve strength and flexibility. Neuromuscular re-education for posture and balance. Therapeutic activities to return to functional activities of daily living. Electronically signed by: Kip Henderson, PT Please sign and return to therapist. Thank you for your referral.
--- NOTE | 2024-10-29 07:19 | MHC.PT.DC ---
[facility] [place] [facility] [place] [facility] [place] [facility] [address] Jayme Farmer [address] [phone] F: [phone] F: [phone] F: [phone] F: [phone] Physical Therapy Discharge Report Diagnosis: low back pain Date of Surgery: Date of Evaluation: 05/25/24 Date of Discharge: Treatments to Date: 5 Cancellations to Date: No Shows to Date: Discharge Status: Independent with HEP Patient Elected to Stop Discharge Summary: 07/06/24: increased stretching. no adverse reactions. continue to progress as tolerated. 06/15/24: pt has been feeling better overall. improved flexibility. reduced s/s. continue to progress as tolerated. 06/08/24: pt progressing well. no adverse reactions and able to continue to progress as tolerated. 06/01/24: pt progressing well with skilled PT. continue to progress as tolerated. encouraged HEP compliance. Patient is a 68 year old R handed male who presents with s/s consistent with low back pain. 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 Patient past medical history includes triple bypass and valve replacement, DM. Current impairments include pain, posture, ROM, strength, flexibility, activity tolerance and functional mobility. Functional limitations include decreased ability to turn, bend, lift, roll over, carry, push, pull. Patient is motivated with good rehab potential. Skilled PT will address impairments and functional limitations in order to achieve goals. Electronically signed by: Kip Henderson, PT Please sign and return to therapist. Thank you for your referral.
== END 2024-10-29 07:20 | disposition home or self-care (01) ==
LOC: HO.PTCHIC 06:00
PROVIDERS: PCP Registered Nurse; Visit Provider Nurse Practitioner Family
DX: M47.816 Spondylosis without myelopathy or radiculopathy, lumbar region (principal); M54.50 Low back pain, unspecified; M79.604 Pain in right leg
CPT/HCPCS: 97110; 97162

== ENCOUNTER 2024-07-16 14:33 | Outpatient (REF) | payer OTHER, SELFPAY ==
--- NOTE | ~2024-07-16 | US_ITS ---
EXAMINATION: US RETROPERITONEUM HISTORY: N39.3 - Stress incontinence (female) (male) TECHNIQUE: Real-time grayscale ultrasound imaging of the kidneys was performed and images were reviewed. COMPARISON: There are no prior studies for comparison. FINDINGS: Right kidney: The right kidney measures 14.3 x 6.2 x 6.8 cm. Renal parenchymal echotexture and thickness are normal. There is a lower pole cyst measuring 1.3 x 1.0 x 1.4 cm. There is no hydronephrosis or renal calculi. Left Kidney: The left kidney measures 14.0 x 6.6 x 5.9 cm. Renal parenchymal echotexture and thickness are normal. There is a 1.2 x 1.4 x 1.3 cm exophytic cyst at the lower pole. An additional complex appearing cyst measuring 3.1 x 2.5 x 3.1 cm is noted at the lower pole. This demonstrates wall calcification. There is no hydronephrosis or renal calculi. The urinary bladder is unremarkable. Bilateral ureteral jets are identified. Before voiding, the urinary bladder measured 6.1 x 11.6 x 5.0 cm, for an estimated volume of 185 mL. After voiding, the urinary bladder measured 3.5 by 5.7 x 2.5 cm, for an estimated volume of 26 mL. Incidental note is made of a 2.5 cm splenule adjacent to the left kidney. US/US retroperitoneal comp IMPRESSION: 1. 3.1 x 2.5 x 3.1 cm complex cyst at the lower pole of the left kidney. Follow-up is recommended. 2. Post void bladder residual of 26 mL. Electronically signed by: Ashkan Coon MD 07/19/2024 07:27 AM EDT
== END 2024-07-16 14:34 | disposition home or self-care (01) ==
LOC: HO.HMGCX 14:33
PROVIDERS: PCP Registered Nurse; Visit Provider Urology
DX: N39.3 Stress incontinence (female) (male) (principal)
CPT/HCPCS: 76770

== ENCOUNTER → 2024-07-16 14:37 | Outpatient (BNV) | payer OTHER, SELFPAY | PROVIDERS: PCP Registered Nurse; Visit Provider Radiology Diagnostic Radiology | DX: N39.3 Stress incontinence (female) (male) (principal); N28.1 Cyst of kidney, acquired | CPT/HCPCS: 76770 ==

== ENCOUNTER 2024-07-29 14:38 | Outpatient (AMB) | payer OTHER, SELFPAY ==
--- NOTE | 2024-07-29 14:52 | A.OFFVIS_ITS ---
Intake Visit Reasons: Cysto? US Intake Note: Patient is present for a cystoscopy Urology Med: None Antibiotic Allergy: None Blood Thinner: Aspirin Superintendent Pipelines Required: No Accompanied by: Self / Same As Patient Allergies No Known Allergies Allergy (Verified 07/29/24 14:53) Medication List - Last Reconciled 07/29/24 by Frances Chatman MD aspirin 81 mg PO DAILY atorvastatin 40 mg PO DAILY dapaglifloz propaned-metformin 5-1,000 mg ER (Xigduo XR) 1 tab PO BID gabapentin 300 mg PO DAILY insulin glargine-lixisenatide 100 unit-33 mcg/mL (Soliqua 100/33) subcut lisinopril 10 mg PO DAILY metoprolol tartrate 25 mg PO BID tamsulosin 0.4 mg PO BEDTIME 30 days HPI Comments Details: 07/29/24--Alberto is here for FU with complaints of urinary frequency and slowing of urinary stream. He denies irritative voiding symptoms, hematuria or dysuria. Nocturia 2-3 times. CoMorbidity - Diabetes. I reviewed ultrasound retroperitoneum results bladder within normal limits with adequate emptying. He is taking the tamsulosin daily with improvement in urinary symptoms. Discussed further evaluation with CT abdomen renal mass protocol. Results: Ultrasound retroperitoneum--06/28/24--3.1 x 2.5 x 3.1 cm complex cyst at the lower pole of the left kidney. 05/27/24--Alberto is here for evaluation with complaints of urinary frequency and slowing of urinary stream. He denies irritative voiding symptoms, hematuria or dysuria. Nocturia 2-3 times. CoMorbidity - Diabetes. [facility] Medical History Diabetes mellitus Hyperlipidemia Hypertension Right bundle branch block Surgical History Aortic valve replaced S/P triple vessel bypass (~08/2022) Social History Alcohol intake: current Alcohol intake frequency: holidays/special occasions only Patient Tobacco Use Status: Former Tobacco user Substance Use Type: Marijuana Review of Systems Const All systems reviewed & are unremarkable except as noted in HPI and below Reports no additional complaints Eyes Reports no additional complaints ENT Reports no additional complaints Card Reports no additional complaints Resp Reports no additional complaints GI Reports no additional complaints Reports as per HPI Musc Reports no additional complaints Skin/Breast Reports system reviewed and no additional complaints, except as documented Neuro Reports no additional complaints Psych Reports no additional complaints Endo Reports no additional complaints Justin/Lymph Reports no additional complaints Aller/Immun Reports no additional complaints Results AMB Urinalysis, Automated UA Leukoctes 0 Miriam/uL Last Edit by Crystal Randolph on 07/29/24 16:25 UA Nitrite Negative Last Edit by Crystal Randolph on 07/29/24 16:25 UA Urobilinogen 0.2 mg/dL Last Edit by Crystal Randolph on 07/29/24 16:25 UA Protein 15 mg/dL Last Edit by Crystal Randolph on 07/29/24 16:25 UA pH 6.0 Last Edit by Crystal Randolph on 07/29/24 16:25 UA Blood 0 Power/uL Last Edit by Crystal Randolph on 07/29/24 16:25 UA Specific Leslie 1.010 Last Edit by Crystal Randolph on 07/29/24 16:25 UA Ketone Negative Last Edit by Crystal Randolph on 07/29/24 16:25 UA Bilirubin 0 mg/dL Last Edit by Crystal Randolph on 07/29/24 16:25 UA Glucose 1000 mg/dL Last Edit by Crystal Randolph on 07/29/24 16:25 Results Reviewed Results Reviewed: Date of Service: 07/16/24 HISTORY: N39.3 - Stress incontinence (female) (male) TECHNIQUE: Real-time grayscale ultrasound imaging of the kidneys was performed and images were reviewed. COMPARISON: There are no prior studies for comparison. FINDINGS: Right kidney: The right kidney measures 14.3 x 6.2 x 6.8 cm. Renal parenchymal echotexture and thickness are normal. There is a lower pole cyst measuring 1.3 x 1.0 x 1.4 cm. There is no hydronephrosis or renal calculi. Left Kidney: The left kidney measures 14.0 x 6.6 x 5.9 cm. Renal parenchymal echotexture and thickness are normal. There is a 1.2 x 1.4 x 1.3 cm exophytic cyst at the lower pole. An additional complex appearing cyst measuring 3.1 x 2.5 x 3.1 cm is noted at the lower pole. This demonstrates wall calcification. There is no hydronephrosis or renal calculi. The urinary bladder is unremarkable. Bilateral ureteral jets are identified. Before voiding, the urinary bladder measured 6.1 x 11.6 x 5.0 cm, for an estimated volume of 185 mL. After voiding, the urinary bladder measured 3.5 by 5.7 x 2.5 cm, for an estimated volume of 26 mL. Incidental note is made of a 2.5 cm splenule adjacent to the left kidney. IMPRESSION: 1. 3.1 x 2.5 x 3.1 cm complex cyst at the lower pole of the left kidney. Follow-up is recommended. 2. Post void bladder residual of 26 mL. Assessment & Plan Assessment & Plan (1) Complex renal cyst: Code(s): N28.1 - Cyst of kidney, acquired Category: Medical (2) Urinary frequency: Code(s): R35.0 - Frequency of micturition Category: Medical (3) Slowing of urinary stream: Code(s): R39.198 - Other difficulties with micturition Category: Medical (4) Diabetes mellitus: Code(s): E11.9 - Type 2 diabetes mellitus without complications Category: Medical Plan CT abdomen with and without IV contrast Orders: Orders CT abdomen wo/w IV con 10 Weeks N28.1 - Cyst of kidney, acquired Blood Urea Nitrogen Today N28.1 - Cyst of kidney, acquired AMB Urinalysis Automated Today Z13.9 - Encounter for screening, unspecified Creatinine Today N28.1 - Cyst of kidney, acquired Medications: Refilled tamsulosin 0.4 mg PO BEDTIME 90 caps 3RF 30 days Patient Instructions: The patient had an opportunity to ask questions regarding treatment plan. The patient expressed understanding and agreement with the above treatment plan. The patient is aware they should contact our office by phone for worsening of their current condition or the appearance of new symptoms. Compliance is encouraged with any medications and followup testing that is ordered. It is a privilege to be allowed the opportunity to participate in the urologic care of your patient. If you have any questions or concerns regarding treatment for the above conditions please do not hesitate to contact me. The office telephone contact is [phone]. This note is constructed in part using voice recognition software. While every effort has been made to ensure accuracy microsoft exchange administrator errors may have been included. Yours sincerely, Frances Chatman MD Coding Diagnoses Complex renal cyst N28.1 Urinary frequency R35.0 Slowing of urinary stream R39.198 Diabetes mellitus E11.9
--- OUTSIDE RECORDS SUMMARY | 2024-07-29 17:16 | XMS_ITS | Continuity of Care Document ---
Author Organization [facility] [address] [place] [address] Phone [phone] Care Team Providers Care Regrind Mill Operator Name Role Phone RICKI Hickman Care Team Information R eceiver [phone] Problems Active Problems Provider Date Hyperlipidemia EMIR Noel Onset: 2024 Essential hypertension EMIR Noel Onset: 07/05/2024 Type 2 diabetes mellitus EMIR Noel Onse t: 07/05/2024 Cerebrovascular disease EMIR Noel Onset : 07/05/2024 Social History Type Date Description Comments Sex Unknown Marital Status Legal Status: Lives With Alone Tobacco Use Start: Unknown End: Unknown Quit ETOH Use Occasionally consumes alcoho l Medications Active Medications SIG Qnty Indications Ordering Provider Date Hmugqcgc1iu/0.5ML Solution Auto-Inject inject 5 mg weekly under the skin as directed 2ml E11.42 Stephanie Ordonez M.D. 07/06/2024 I25.10 Z95.1 Xigduo XR5-1000mg Tablets ER 24HR RICKI Hickman Tamsulosin HCL0.4mg Capsules U nknown [id number] Tablets RICKI [place] [id number]-jte/ML Solu tion Pen-Inject Bernadette Gonzalez N.PLetty Freestyle Elina 3 Plus/Senso r/Glucose Monitoring SystemMisc RICKI Hickman [id number] Capsules David GiordanoARSHP-Wai Atorvastatin Qpxhmdk19an Tablets Ariana GiordanoFELISA-Wai BD Pen Needle/Short/Ultra-Fi ne/31G X 8mm31G X 8 mm Misc Unknown 0 Metoprolol Succinate ER25mg Tablets ER 24HR Ariana KlineniferRICKI Onetouch VerioStrips Trevoralbinlily KlineGiulianaRICKI History Medications Mounjaro2.5mg/0.5ML Solution Auto-Inject inject 2.5 mg weekly under the skin as directed 2ml E11.42 Stephanie Ordonez M.D. 07/06/2024 - 07/06/2024 I25.10 Z95.1 Vital Signs Date Vital Result Comment 07/06/2024 9:07am BP Systolic 142 mmHg BP Diastolic 80 mmHg Heart Rate 85 /min Height 65 inches 5'5 Weight 223.12 lb BMI (Body Mass Index) 37.1 kg/m2 Results Test Acquired Date Facility Test Result H/L Range N ote Glucose Fingerstick 07/06/2024 Inhouse Glucose Fingerstick 93 Hemoglobin A1c 07/06/2024 Inhouse Hemoglobin A1c 8.1% Medical Devices Description No Information Available Encounters Description No Information Available Assessments Date Code Description Provider 07/06/2024 E11.42 Type 2 diabetes mellitus with diabetic polyneuropathy EMIR Noel 07/06/2024 I25.10 Atherosclerotic heart disease of [place] coronary artery without angina pectoris EMIR Noel 07/06/2024 Z95.1 Presence of aortocoronary by pass graft EMIR Noel 07/06/2024 I10 Essential (primary) hyperten ramon EMIR Noel 07/06/2024 E78.5 Hyperlipidemia, unspecified EMIR Noel 07/06/2024 E66.9 Obesity, unspecified EMIR Noel 07/06/2024 Z68.37 Body mass index [BMI] 37.0-3 7.9, adult EMIR Noel Plan of Treatment Future Appointment(s):* 10/07/2024 3:15 pm - EMIR Noel at Main Office 07/06/2024 - EMIR Noel* E11.42 Type 2 diabetes mellitus with diabetic polyneuropathy * I25.10 Atherosclerotic heart disease of [place] coronary artery without angina pectoris * Z95.1 Presence of aortocoronary bypass graft * I10 Essential (primary) hypertension * E78.5 Hyperlipidemia, unspecified * E66.9 Obesity, unspecified * Z68.37 Body mass index [BMI] 37.0-37.9, adult* New Medication:* Mounjaro 5 mg/0.5ML * Mounjaro 2.5 mg/0.5ML Functional Status Description No Information Available Mental Status Description No Information Available Referrals Description No Information Available
--- OUTSIDE RECORDS SUMMARY | 2024-07-29 17:17 | XMS_ITS | Continuity of Care Document ---
Author Organization [facility] Address [facility] [address] [facility] [address] [facility] [address] [place] [phone] Phone Care Team Providers Care Director Of Guidance Name Role Phone Campbell ARREAGA, FACP, CDE, Clint Unavailable Yudi vailable Allergies, Adverse Reactions, Alerts Substance Reaction Status Criticality No Known Allergies Active No Inform ation Medications Medication Instructions Dosage Effective Dates (start - stop) Status Comments BD UF SHORT PEN NEEDLE [id number] USE 1 DAILY 1 - Active XIGDUO [...] De Hemoglobin; A1C OFFICE/OUTPATIENT VISIT, EST-Detailed Se p Office/Outpatient Visit, Est Office/Outpatient Visit, New OFFICE/OUTPATIENT VISIT, EST-Detailed Ma r- Hemoglobin; A1C OFFICE/OUTPATIENT VISIT, EST-Detailed Oc OFFICE/OUTPATIENT VISIT, EST-Detailed Ma r-08-2016 GLUCOSE BLOOD TEST OFFICE/OUTPATIENT VISIT, EST-Detailed Se [...] on Encounter [facility], [address] [place] [address], tel:[phone] [facility] No Information [address] [place] [address], [facility] [place], [place], [facility], . tel:[phone] [facility] [place] [address], [place], [place], [address] [place] [address], tel:[phone] [facility] No Information [address] [place] [address], [facility] [place], [facility], . tel:[phone] [facility] [address], [address] [place] [address], tel:[phone] [facility] No Information [address] [place] [address], [facility] [place], [facility], . 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 tel:[phone] Referring Provider: Rafael Lerma [address] [place] [address] [facility] [place], [place], [facility]. tel:[phone] [facility] [place] [address], [place], [place], [id number], tel:[phone] [facility] No Information [address] [place] [address], [facility] [place], [facility], . tel:[phone] OFFICE/OUTPAT IENT VISIT, EST-Detailed [facility] [place] [address], [place], [place], [address], tel:[phone] [facility] diabetes (chief complaint) Type 2 diabetes mellitus with hyperglycemi aBilateral carotid bruitsMixed hyperlipidem iaB12 deficiencyTy pe 2 diabetes mellitus with diabetic nephropathyB papo mass index [BMI] 33.0-33.9, adult May-[address] [place] [address], [facility] [place], [facility], . tel:[phone] Consulting Provider: Eloise Paz MD, [address] [place] [address], [id number]. Referring Provider: Clint Hightower I, [address] [place] [address] [facility] [place], [facility]. tel:[phone] [facility] [place] [address], [place], [place], [id number], tel:[phone] [facility] No Information [address] [place] [address], [facility] [place], [address], . tel:[phone] OFFICE/OUTPAT IENT VISIT, EST-Detailed [facility]3][address] [address], [place], [place], [id number], tel:[phone] [facility] diabetes (chief complaint) Type 2 diabetes mellitus with hyperglycemi aType 2 diabetes mellitus with diabetic nephropathyB ilateral carotid bruitsMixed hyperlipidem iaCKD (chronic kidney disease), stage IBody mass index [BMI] 33.0-33.9, [id number] deficiencyBo dy mass index [BMI] 35.0-35.9, adult Aidan- [address] [facility] Justyn, [facility] [place], [facility], . tel:[phone] Referring Provider: Rafael Lerma Dr[address] [facility] Justyn [facility] [place], [place], [facility]. tel:[phone] OFFICE/OUTPAT IENT VISIT, EST-Detailed [facility]3][address] [address], [place], [place], [id number], tel:[phone] [facility] diabetes (chief complaint) Type 2 diabetes mellitus with hyperglycemi aMixed hyperlipidem iaType 2 diabetes mellitus with diabetic nephropathyB ilateral carotid bruitsBody mass index [BMI] 33.0-33.9, adultEssenti al (primary) hypertension [address] [facility] Justyn, [facility] [place], [address], [place]. tel:[phone] Referring Provider: Rafael Lerma Dr[facility] 101 [facility] [place], [place], [facility]. tel:[phone] Office/Outpat ient Visit, Est [facility], [address] [facility], [place], [place], [address], [place] tel:[phone] [facility] Right hip pain (chief complaint) Unilateral primary osteoarthrit is, right hipBody mass index [BMI] 33.0-33.9, adultLow back pain, unspecified 2 Lee James. [address] [facility] , [place], [address], [place]. tel:[phone] Referring Provider: Jacob Howard, [address] [facility], [place], [address]. tel:[phone] OFFICE/OUTPAT IENT VISIT, EST-Detailed [facility]3][address] [place] [address] [facility], [place], [place], [address], tel:[phone] [facility] diabetes (chief complaint) Type 2 diabetes mellitus with hyperglycemi aCKD (chronic kidney disease), stage IBody mass index [BMI] 32.0-32.9, [id number] deficiencyBi lateral carotid bruitsEssent ial (primary) hypertension Muscle painBody mass index [BMI] 33.0-33.9, adult Jul- 2 Campbell Jaramillo. [address], [facility] [place], [facility], [place]. tel:[phone] Referring Provider: Clint Hightower I, Rafael [address] [facility] [place], [facility]. tel:[phone] OFFICE/OUTPAT IENT VISIT, EST-Detailed [facility] [place] [address] [facility] [address] [facility], [place], [place], [address], tel:[phone] [facility] diabetes (chief complaint) Type 2 diabetes mellitus with hyperglycemi aMixed hyperlipidem iaB12 deficiencyBi lateral carotid bruitsCKD (chronic kidney disease), stage IType 2 diabetes mellitus with diabetic nephropathyB papo mass index [BMI] 32.0-32.9, adult Oct- 1 Campbell Jaramillo. [address], [facility] [place], [address], [place]. tel:[phone] Referring Provider: Clint Hightower I, [address] [facility], [place], [address]. [phone] Office/Outpat ient Visit, Est [facility], [address] [facility], [place], [place], [address], [place] tel:[phone] [facility] Radiculopath y, cervical regionBody mass index [BMI]30.0-30 .9, adultCervica l disc disorder, unspecified, unspecified cervical regionImping ement syndrome of left shoulder Dec- 1 Louis Kumar. [address], [address] , [place], [address], [place]. tel:[phone] Referring Provider: José Myers, [address] [facility], [place], [address]. tel:[phone] [facility], [address] [address], [place], [place], [address], [place] tel:[phone] [facility] No Information 1 Louis Kumar. [address], [address] , [place], [address], [place]. tel:[phone] Referring Provider: José Myers, [address] [facility] , [place], [address]. tel:[phone] [facility], [address] [facility], [place], [place], [address], [place] tel:[phone] [facility] Encounter for other preprocedura l examination Sep- 1 Louis Kumar. [address], [address] , [place], [address], [place]. tel:[phone] Referring Provider: Cristina Rider, [address] [facility], [place], [address]. tel:[phone] Office/Outpat ient Visit, Est [facility], [address] [facility] [address] [place] [address], [place], [place], [id number], [place] tel:[phone] [facility] CervicalgiaR adiculopathy , cervical regionOther spondylosis with radiculopath y, cervical region Randell- 1 Louis Kumar. [address], [address] , [place], [address], [place]. tel:[phone] Referring Provider: José Myers, [address] [facility] , [place], [address]. tel:[phone] Office/Outpat ient Visit, Est [facility], [address] [facility] [address] [place] [address], [place], [place], [address], [place] tel:[phone] [facility] CervicalgiaR adiculopathy , cervical region 1 Louis Kumar. [address], [address] , [place], [address], [place]. tel:[phone] Referring Provider: José Myers, [address] [facility] , [place], [address]. tel:[phone] Office/Outpat ient Visit, Est [facility], [address] [place] [address], [place], [place], [address], [place] tel:[phone] [facility] Pain in right kneeUnilater al primary osteoarthrit is, right kneeUnspecif ied internal derangement of right kneeDerangem ent of unspecified medial meniscus due to old tear or injury, right kneeSprain of anterior cruciate ligament of right knee, initial encounterBod y mass index [BMI] 31.0-31.9, adult August- 1 Lee James. [address] [facility], [facility] , [place], [address], [place]. tel:[phone] Referring Provider: Jacob Howrad, [address] [place], [address]. tel:[phone] OFFICE/OUTPAT IENT VISIT, EST-Detailed [facility]3][address] [facility] [address], [place], [place], [address], [place] tel:[phone] [facility] diabetes (chief complaint) Type 2 diabetes mellitus with hyperglycemi aMixed hyperlipidem iaEssential (primary) hypertension CKD (chronic kidney disease), stage IType 2 diabetes mellitus with diabetic nephropathyB ilateral carotid [id number] deficiencyBo dy mass index [BMI] 31.0-31.9, adult Jul-2 1 Campbell Jaramillo. [address], [facility] [place], [address], [place]. tel:[phone] Referring Provider: Clint Hightower I, [address] [facility] [place], [address]. tel:[phone] Office/Outpat ient Visit, Est [facility], [address] [facility], [place], [place], [address], [place] tel:[phone] [facility] Neck pain (chief complaint) CervicalgiaB papo mass index [BMI] 33.0-33.9, adultRadicul opathy, cervical region Apr- 1 Louis Kumar. [address], [facility], [place], [address], [place]. tel:[phone] Referring Provider: Thien Bush, [address] [facility], [place], [address]. [phone] Office/Outpat ient Visit, Est [facility], [address] [facility], [place], [place], [address], [place] tel:[phone] [facility] Carpal tunnel syndrome, right upper limbTrigger finger, left ring fingerBody mass index [BMI] 33.0-33.9, adultPain in left wristPain in right wrist Apr-0 1 Eleazar Neumann. [address] , [place], [address], [place]. tel:[phone] Referring Provider: Kip Ray, [address], [address]. tel:[phone] Office/Outpat ient Visit, Est [facility], [address] [place] [address], [place], [place], [address], [place] tel:[phone] [facility] Right knee pain (chief complaint) Pain in right kneeUnilater al primary osteoarthrit is, right kneeUnspecif ied internal derangement of right kneeDerangem ent of unspecified medial meniscus due to old tear or injury, right kneeSprain of anterior cruciate ligament of right knee, initial encounterBod y mass index [BMI] 33.0-33.9, adult Mar-0 - 1 Lee James. [address] [facility] [address] , [place], [address], [place]. tel:[phone] Referring Provider: Kip Ray, [address] [place] [address], [address]. tel:[phone] Office/Outpat ient Visit, [facility], [address] [place] [address], [place], [place], [address], [place] tel:[phone] [facility] Carpal tunnel syndrome, right upper limbBody mass index [BMI] 33.0-33.9, adult Jun-0 1 Louis José. [address] , [place], [address], . tel:[phone] Referring Provider: Kip Ray, [address] [address], [place], [address]. tel:[phone] Office/Outpat ient Visit, [facility], [address] [facility] [address], [place], [place], [address], [place] tel:[phone] [facility] Right hand pain (chief complaint) Carpal tunnel syndrome, right upper limbTrigger finger, left ring fingerBody mass index [BMI] 33.0-33.9, adult May- 1 Eleazar Neumann. [address] , [place], [address], [place]. tel:[phone] Referring Provider: Thien Bush, [address] [facility], [place], [address]. tel:[phone] OFFICE/OUTPAT IENT VISIT, EST-Detailed 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 [address], [facility] [place], [address], [place]. tel:[phone] Referring Provider: Clint Hightower I, [address] [facility] [place], [address]. tel:[phone] OFFICE/OUTPAT IENT VISIT, EST-Detailed [facility] [place] [address] [place] [address], [place], [place], [address], tel:[phone] [facility] diabetes (chief complaint) Type 2 diabetes mellitus with hyperglycemi aType 2 diabetes mellitus with diabetic nephropathyC KD (chronic kidney disease), stage IEssential (primary) hypertension Mixed hyperlipidem iaB12 deficiencyLe ft ankle swellingHand numbnessBody mass index (BMI) 35.0-35.9, adultBilater al carotid bruits [address] [facility] Justyn, [facility] [place], [place], [facility], . tel:[phone] Referring Provider: Rafael Lerma [address] [place] [address] [facility] [place], [place], [facility]. tel:[phone] OFFICE/OUTPAT IENT VISIT, EST-Detailed [facility] [place] [address], [place], [place], [address], tel:[phone] [facility] diabetes (chief complaint) Hand numbnessType 2 diabetes mellitus with hyperglycemi aMixed hyperlipidem iaCKD (chronic kidney disease), stage IType 2 diabetes mellitus with diabetic nephropathyE ssential (primary) hypertension Body mass index (BMI) 34.0-34.9, adult Oct 0-[address] [facility] Just[place], [facility] [place], [address], [place]. tel:[phone] Referring Provider: Rafael Lerma [address] [place] [address] [facility] [place], [place], [facility]. tel:[phone] OFFICE/OUTPAT IENT VISIT, EST-Detailed [facility])[3][address] [facility] [address] [facility], [place], [place], [address], tel:[phone] [facility] diabetes (chief complaint) Type 2 diabetes mellitus with hyperglycemi aType 2 diabetes mellitus with diabetic nephropathyC KD (chronic kidney disease), stage IEssential (primary) hypertension Mixed hyperlipidem iaBody mass index (BMI) 34.0-34.9, adult [address] [place] [address], [facility] [place], [facility], . tel:[phone] Referring Provider: Clint Hightower I, [address] [facility] [facility] 101 [facility] [place], [place], [facility]. tel:[phone] OFFICE/OUTPAT IENT VISIT, EST-Detailed [facility]3][address] [facility] [address] [facility], [place], [place], [address], tel:[phone] [facility] diabetes (chief complaint) Type 2 diabetes mellitus with diabetic nephropathyT ype 2 diabetes mellitus with hyperglycemi aCKD (chronic kidney disease), stage IEssential (primary) hypertension Mixed hyperlipidem ia [address] [place] [address], [facility] [place], [facility], . tel:[phone] Referring Provider: Clint Hightower I, [address] [facility] [facility] 101 [facility] [place], [place], [facility]. tel:[phone] [facility], [address] [facility], [address], [place], [place], [facility], tel:[phone] [facility] No Information 9 Paul [place]. [address] [facility], [address], [place], [place], [address], [place]. tel:[phone] Referring Provider: Cristina Rider, [address], [address]. tel:[phone] [facility], [address] [facility], [place], [address], [place] tel:[phone] [facility] [place] No Information 9 Paul [place]. [address] [facility], [address], [place], [address], [place]. tel:[phone] OFFICE/OUTPAT IENT VISIT, [facility], [address] [facility], [address], [place], [address], tel:[phone] [facility] Office Colon Cancer Screening (chief complaint) Colon cancer screening 8 Paul [place]. [address] [facility], [address], [place], [address], [place]. tel:[phone] Referring Provider: Cristina Rider, [address], [address]. tel:[phone] [facility], [address] [place] [address], [address], tel:[phone] [facility] No Information 8 Diamante Shin. [address] [place] [address], [id number], [place]. tel:[phone] OFFICE/OUTPAT IENT VISIT, EST-Detailed [facility] [address], [place], [place], [address], [place] tel:[phone] [facility] diabetes (chief complaint) Type 2 diabetes mellitus with hyperglycemi aEssential (primary) hypertension B12 deficiencyTy pe 2 diabetes mellitus with diabetic nephropathyM ixed hyperlipidem iaCKD (chronic kidney disease), stage IFinger numbnessHear t murmur Sep-[address] [place] [address], [facility] [place], [facility], . tel:[phone] Referring Provider: Rafael Lerma [address] [place] [address] [facility] [place], [facility]. tel:[phone] OFFICE/OUTPAT IENT VISIT, EST-Detailed [facility] [address], [address] [place] [address], tel:[phone] [facility] diabetes (chief complaint) Type 2 diabetes mellitus with hyperglycemi aMixed hyperlipidem iaEssential (primary) hypertension CKD (chronic kidney disease), stage IType 2 diabetes mellitus with diabetic nephropathyB 12 deficiency Jul-0 [address] [place] [address], [facility] [place], [facility], . tel:[phone] Referring Provider: Rafael Lerma Dr[address] [place] [address] [facility] [place], [facility]. tel:[phone] OFFICE/OUTPAT IENT VISIT, EST-Detailed [facility] [address], [address] [place] [address], tel:[phone] [facility] diabetes (chief complaint) Type 2 diabetes mellitus with hyperglycemi aType 2 diabetes mellitus with diabetic nephropathyM ixed hyperlipidem iaEssential (primary) hypertension Leg cramps Dec-[address] [facility] Justyn, [facility] [place], [facility], . tel:[phone] Referring Provider: Rafael Lerma Dr[address] [facility] [place], [address]. tel:[phone] OFFICE/OUTPAT IENT VISIT, EST-Detailed [facility] [address], [place], [place], [address], [place] tel:[phone] [facility] diabetes (chief complaint) Type 2 diabetes mellitus with hyperglycemi aType 2 diabetes mellitus with diabetic nephropathyM ixed hyperlipidem iaEssential (primary) hypertension CKD (chronic kidney disease), stage I 7 Campbell Jaramillo. [address], [facility] [place], [address], [place]. tel:[phone] Referring Provider: Clint Hightower I, [address] [facility] [place], [address]. tel:[phone] Office/Outpat ient Visit, Est [facility], [address] [address], [place], [place], [address], [place] tel:[phone] [facility] [place] Low back painOther intervertebr al disc degeneration , lumbar regionRadicu lopathy, lumbar regionOther intervertebr al disc displacement , lumbar region 7 Shona Gutierrez. [address], [facility] , [place], [address], [place]. tel:[phone] Referring Provider: Kip Ray, [address] [address], [place], [address]. tel:[phone] Office/Outpat ient Visit, [facility], [address] [address], [place], [place], [address], [place] tel:[phone] [facility]iana Back pain and Back and left leg pain (chief complaint) Low back painOther intervertebr al disc degeneration , lumbar regionRadicu lopathy, lumbar regionOther intervertebr al disc displacement , lumbar region Randell-0 7 Shona Gutierrez. [address], [facility] , [place], [address], [place]. tel:[phone] Referring Provider: Kip Ray, [address], [address]. tel:[phone] [facility] [address] [facility], [place], [place], [address], [place] tel:[phone] [facility] Essential (primary) hypertension Mixed hyperlipidem iaType 2 diabetes mellitus with diabetic nephropathy Jun-2 7 Campbell Baez [address] [address], [facility] [place], [address], [place]. tel:[phone] OFFICE/OUTPAT IENT VISIT, EST-Detailed [facility] [address] [address], [place], [place], [address], [place] tel:[phone] [facility] diabetes (chief complaint) Type 2 diabetes mellitus with diabetic nephropathyT ype 2 diabetes mellitus with hyperglycemi aMixed hyperlipidem iaEssential (primary) hypertension Jun- 7 Campbell Baez [address] [place] [address] [address], [facility] [place], [address], [place]. tel:[phone] Referring Provider: Clint Hightower I, [address] [address] [facility] [place], [address]. tel:[phone] OFFICE/OUTPAT IENT VISIT, EST-Detailed [facility] [address] [address], [place], [place], [address], tel:[phone] [facility] diabetes (chief complaint) Type 2 diabetes mellitus with diabetic nephropathyM ixed hyperlipidem iaEssential (primary) hypertension Type 2 diabetes mellitus with hyperglycemi a [address], [facility] [place], [address], . tel:[phone] Referring Provider: Clint Hightower I, Rafael [address] Dr[address] [facility] 101 [facility] [place], [address]. tel:[phone] [facility], [address], [address], tel:[phone] [facility] No Information 6 Diamante Shin. [address], [id number], [place]. tel:[phone] OFFICE/OUTPAT IENT VISIT, EST-Detailed [facility] [address], [id number], tel:[phone] [facility] diabetes (chief complaint)Nu rse Comments (chief complaint) Type 2 diabetes mellitus with hyperglycemi aType 2 diabetes mellitus with diabetic nephropathyE ssential (primary) hypertension Mixed hyperlipidem ia [address], [facility] [place], [place], [facility], [place]. tel:[phone] Referring Provider: Clint Hightower I, Rafael [address] [facility] 101 [facility] [place], [address]. tel:[phone] OFFICE/OUTPAT IENT VISIT, EST-Detailed [facility] [address] [facility], [place], [place], [address], tel:[phone] [facility] diabetes (chief complaint) Diabetes II, Uncontrolled , W/Renal Manifestatio nsPROTEINURI AHypertensio n, BenignMixed Hyperlipidem ia Sep- [address] [address], [facility] [place], [place], [facility], . tel:[phone] Referring Provider: Clint Hightower I, Rafael [address] [address] [facility] [place], [place], [facility]. tel:[phone] OFFICE/OUTPAT IENT VISIT, EST-Detailed [facility] [address], [id number], tel:[phone] [facility] diabetes (chief complaint) Diabetes II, Uncontrolled , W/Renal Manifestatio nsHypertensi on, BenignMixed Hyperlipidem iaPROTEINURI A [address] [address], [facility] [place], [place], [facility], . tel:[phone] Referring Provider: Clint Hightower I, Rafael [address] [address] [facility] [place], [place], [facility]. tel:[phone] OFFICE/OUTPAT IENT VISIT, EST-Complex [facility] [address] [address], [place], [place], [address], tel:[phone] [facility] diabetes (chief complaint) Diabetes II, Uncontrolled , W/Renal Manifestatio nsHypertensi on, BenignMixed Hyperlipidem iaPROTEINURI AErectile Dysfunction [address] [facility] Justyn, [facility] [place], [place], [facility], . tel:[phone] Referring Provider: Rafael Lerma Dr. [facility] 101 [facility] [place], [address]. tel:[phone] [facility] [address] [address], [place], [place], [address], tel:[phone] [facility] Diabetes II, Uncontrolled , W/Renal Manifestatio ns 5 Campbell Baez [address] [address], [facility] [place], [place], [facility], . tel:[phone] OFFICE/OUTPAT IENT VISIT, EST-Detailed [facility] [address] [address], [place], [place], [address], tel:[phone] [facility] diabetes (chief complaint)Nu rse Comments (chief complaint) Hypertension , BenignMixed Hyperlipidem iaErectile DysfunctionP ROTEINURIA 4 Campbell Baez [address] [address], [facility] [place], [place], [facility], . tel:[phone] Referring Provider: Kip Ray, [address] [place] [address], [address]. tel:[phone] OFFICE/OUTPAT IENT VISIT, EST-Detailed [facility] [address] [address], [place], [place], [address], tel:[phone] [facility] diabetes (chief complaint)er ectile dysfunction (chief complaint) Diabetes II, Uncontrolled , W/Renal Manifestatio nsPROTEINURI AMixed Hyperlipidem iaHypertensi on, BenignErecti le Dysfunction 3 Campbell Baez [address], [facility] [place], [address], . tel:[phone] Referring Provider: Kip Ray, [address], [address]. tel:[phone] OFFICE/OUTPAT IENT VISIT, EST-Detailed [facility] [facility] [address], [place], [place], [address], tel:[phone] [facility] diabetes (chief complaint) Diabetes II, Uncontrolled , W/Renal Manifestatio nsHypertensi on, BenignMixed Hyperlipidem iaPROTEINURI A 3 Campbell Clint. [address], [facility] [place], [place], [facility], . tel:[phone] Referring Provider: Kip aRy, [address], [address]. tel:[phone] OFFICE/OUTPAT IENT VISIT, EST-Detailed [facility] [address] [facility], [place], [place], [address], tel:[phone] [facility] diabetes (chief complaint) Diabetes II, Uncontrolled , W/Renal Manifestatio nsMixed Hyperlipidem iaHypertensi on, Benign 3 Campbell Clint. [address], [facility] [place], [place], [facility], . tel:[phone] Referring Provider: Kip Ray, [address], [address]. tel:[phone] OFFICE/OUTPAT IENT VISIT, EST-Detailed [facility] [address], [place], [place], [address], tel:[phone] [facility] diabetes type 2 (chief complaint) Diabetes II, Uncontrolled , W/Renal Manifestatio nsMixed Hyperlipidem iaHypertensi on, BenignPROTEI OSCAR 3 Campbell Clint. [address], [facility] [place], [place], [facility], . tel:[phone] Referring Provider: Kip Ray, [address], [address]. tel:[phone] OFFICE/OUTPAT IENT VISIT, EST [facility] [address] [facility], [place], [place], [address], tel:[phone] [facility] diabetes (chief complaint) Diabetes II, Uncontrolled , W/Renal Manifestatio nsHypertensi on, BenignMixed Hyperlipidem iaPROTEINURI A 2 Campbell Clint. [address], [facility] [place], [place], [facility], . tel:[phone] Referring Provider: Kip Ray, [address], [address]. tel:[phone] OFFICE/OUTPAT IENT VISIT, EST [facility] [address] [facility], [place], [place], [address], tel:[phone] [facility] diabetes (chief complaint) Diabetes II, Uncontrolled , W/Renal Manifestatio nsPROTEINURI AHypertensio n, BenignMixed Hyperlipidem ia 2 Campbell Clint. [address], [facility] [place], [place], [facility], . tel:[phone] Referring Provider: Kip Ray, [address], [address]. tel:[phone] OFFICE/OUTPAT IENT VISIT, EST [facility], [place], [place], [address], tel:[phone] [facility] diabetes type 2 (chief complaint) Diabetes II, Uncontrolled Diabetes II, Uncontrolled , W/Renal Manifestatio nsMixed Hyperlipidem iaHypertensi on, BenignPROTEI OSCAR May- 2 Campbell Clint. [address], [facility] [place], [place], [facility], . tel:[phone] Referring Provider: Kip Ray, [address] [place] [address], [address]. tel:[phone] OFFICE/OUTPAT IENT VISIT, EST [facility] [address] [address], [place], [place], [address], tel:[phone] [facility] diabetes (chief complaint) PROTEINURIAD iabetes II, Uncontrolled , W/Renal Manifestatio nsMixed Hyperlipidem iaHypertensi on, BenignJOINT PAIN-SHLDERP ROTEINURIA Jun- 2 Campbell Clint. [address], [facility] [place], [place], [facility], . tel:[phone] Referring Provider: Kip Ray, [address] [place] [address], [address]. tel:[phone] OFFICE/OUTPAT IENT VISIT, EST [facility] [address] [address], [place], [place], [address], tel:[phone] [facility] diabetes (chief complaint) Diabetes II, Uncontrolled , W/Renal Manifestatio nsHypertensi on, BenignMixed Hyperlipidem iaJOINT PAIN-SHLDER Feb- 2 2 Campbell Clint. [address], [facility] [place], [address], [place]. tel:[phone] Referring Provider: Kip Ray, [address], [address]. tel:[phone] [facility], [address] [place], [place], [id number], [place] tel:[phone] [facility] No Information 2 Oliver Ortiz. [address], [place], [address], [place]. tel:[phone] OFFICE/OUTPAT IENT VISIT, EST [facility] [place], [address], [place], [address], [place] tel:[phone] [facility] No Information 2 Oliver Ortiz. [address], [place], [address], [place]. tel:[phone] OFFICE/OUTPAT IENT VISIT, EST [facility] [facility] [address], [place], [place], [address], [place] tel:[phone] [facility] diabetes (chief complaint)Er ectile Dysfunction (chief complaint) Mixed Hyperlipidem iaHypertensi on, BenignDiabet es II, Uncontrolled , W/Renal Manifestatio nsErectile DysfunctionI nfluenza Vaccine 1 [facility], Cancer CenterLetty [address] [place], [place] [address], [facility] [place], [address], [place]. tel:[phone] Referring Provider: Kip Ray, [address], [address]. tel:[phone] OFFICE/OUTPAT IENT VISIT, EST [facility] [facility] [address], [place], [place], [address], [place] tel:[phone] [facility] diabetes (chief complaint) Diabetes II, Uncontrolled , W/Renal Manifestatio nsMixed Hyperlipidem iaHypertensi on, Benign 1 Campbell Baez [address], [facility] [place], [place], [facility], . tel:[phone] Referring Provider: Kip Ray, [address], [address]. tel:[phone] OFFICE/OUTPAT IENT VISIT, EST [facility], [address], [place], [address], [place] tel:[phone] [facility] No Information 1 Oliver Ortiz. [address], [place], [id number], [place]. tel:[phone] OFFICE/OUTPAT IENT VISIT, EST [facility] [address] [facility] [address], [place], [place], [address], tel:[phone] [facility] diabetes (chief complaint) Diabetes II, Uncontrolled Hypertension , BenignMixed Hyperlipidem ia 1 Campbell Baez [address], [facility] [place], [place], [facility], . tel:[phone] Referring Provider: Kip Ray, [address], [address]. tel:[phone] OFFICE/OUTPAT IENT VISIT, EST [facility] [address], [place], [place], [address], [place] tel:[phone] [facility] Diabetes II, Uncontrolled Mixed Hyperlipidem iaHypertensi on, BenignVITAMI N D DEFICIENCY NOSDiabetes II, Uncontrolled VITAMIN D DEFICIENCY NOSHX-EXPOSU RE TO LEADHX-EXPOS URE TO LEAD 2 7-201 0 Campbell Jaramillo. [address], [facility] [place], [place], [facility], . tel:[phone] Referring Provider: Kip Ray, [address], [address]. tel:[phone] Office/Outpat ient Visit, [facility], [address], [place], [address], tel:[phone] [facility] No Information 2201 0 Oliver Ortiz. [address], [place], [id number], . tel:[phone] OFFICE/OUTPAT IENT VISIT, [facility]3][address] [facility] [address], [place], [address] [place] [address], tel:[phone] [facility] No Information 1- 0 Campbell Jaramillo. [address], [facility] [place], [place], [facility], . tel:[phone] Referring Provider: Kip Ray, [address] [place] [address], [address]. tel:[phone] [facility], [address] [facility], [address], [place], [facility], tel:[phone] [facility] No Information 8-200 7 Sherman Harris. [address] [facility], [address], [place], [address], . tel:[phone] Referring Provider: Kip Ray, [address] [place] [address], [address]. tel:[phone] Family History Family Member Type Diagnosis Age [...] Immunization Record pneumococcal (PCV13) administered Note: Chung benavidesen ; Source: New Immunization Record pneumococcal (PPSV23) administered Note: Given ; Source: New Immunization Record Tdap administered Note: Given ; S ource: New Immunization Record Flu (split) (3 yrs or older) administered Source: New Immunization Record Payers Payer name Insurance type Covered democrat ID Authoriza tion(s) [id number] Social History Type Description Quantity Date Captured [...] eye exam . Due on due Goal Gear Milling Machine Set Up Operator / Nutr itionist. Due on due Goal Dilated eye exam . Due on due Goal community health educator due Goal Pneumococcal (PP V23) Vaccine. Due on due Goal Gear Milling Machine Set Up Operator / Nutr itionist. Due on due Goal Influenza vaccin e. Due on due Goal Influenza vaccin e. Due on due Goal Dilated eye exam . Due on due Goal community health educator due Goal Lipid panel. Due on 016 due Goal Gear Milling Machine Set Up Operator / Nutr itionist. Due on due Goal Pneumococcal (PP V23) Vaccine. Due on due Goal Hemoglobin A1C. Due on due Goal Pneumococcal (PP V23) Vaccine. Due on due Goal Influenza vaccin e. Due on due Goal Lipid panel. Due on 016 due Goal Dilated eye exam . Due on due Goal Gear Milling Machine Set Up Operator / Nutr itionist. Due on due Goal community health educator due Goal Influenza vaccin e. Due on due Goal Gear Milling Machine Set Up Operator / Nutr itionist. Due on due Goal Hemoglobin A1C. Due on due Goal community health educator due Goal Pneumococcal (PP V23) Vaccine. Due on due Goal Lipid panel. Due on due Goal Dilated eye exam . Due on due Goal Lifestyle educat ion regarding diet completed Goal community health educator due Goal Gear Milling Machine Set Up Operator / Nutr itionist. Due on due Goal Urine microalbum in. Due on due Goal Influenza vaccin e. Due on due Goal Pneumococcal (PP V23) Vaccine. Due on due Goal Lipid panel. Due on due Goal Dilated eye exam . Due on due Goal Lipid panel. Due on due Goal Gear Milling Machine Set Up Operator / Nutr itionist. Due on due Goal community health educator due Goal Pneumococcal (PP V23) Vaccine. Due on due Goal Dilated eye exam . Due on due Goal Influenza vaccin e. Due on due Goal Pneumococcal (PP V23) Vaccine. Due on due Goal Dilated eye exam . Due on due Goal community health educator due Goal Influenza vaccin e. Due on due Goal Gear Milling Machine Set Up Operator / Nutr itionist. Due on due Goal Pneumococcal (PP V23) Vaccine. Due on due Goal community health educator due Goal Foot exam. Due on 4 due Goal Gear Milling Machine Set Up Operator / Nutr itionist. Due on due Goal Dilated eye exam . Due on due Goal Influenza vaccin e. Due on due Goal Urine microalbum in. Due on due Goal community health educator due Goal Gear Milling Machine Set Up Operator / Nutr itionist. Due on due Goal [...] Foot exam. Due on 4 due Goal Urine microalbum in. Due on due Goal Gear Milling Machine Set Up Operator / Nutr itionist. Due on due Goal Lipid panel. Due on 014 due Goal Hemoglobin A1C. Due on due Goal Pneumococcal (PP V23) Vaccine. Due on due Goal GFR. Due on due Goal community health educator due Goal Dilated eye exam . Due on due Goal Dilated eye exam . Due on due Goal Diabetes educato r. Due on due Goal Gear Milling Machine Set Up Operator / Nutr itionist. Due on due Goal Influenza vaccin e. Due on due Goal Foot exam. Due on 4 due Goal Pneumococcal (PP V23) Vaccine. Due on due Referral Ordered: Cristina Douglas -[facility] : Family Medicine (related to Body mass index [BMI] 33.0-33.9, adult) ordered Referral Referred To: Cristina Douglas [address] [place] [address], [id number] Ordered: Referrals: [facility] : Family Medicine. Cristina Douglas Consult and Advise Appointment date/timeframe: 09/13/2021 ordered Referral Ordered: Cristina Mendoza (related to Cervicalgia) ordered Referral Ordered: Kip Bobby DOAllopathic & Osteopathic Physicians : Family Medicine (related to Body mass index [BMI] 31.0-31.9, adult) ordered Referral Ordered: Cristina Mendoza (related to Carpal tunnel syndrome, right upper limb) ordered Referral Referred To: [address] [place] [address], [phone] Ordered: Referrals: Referrals: Lisa. Reji Consult and Advise Appointment date/timeframe: 07/27/2020 ordered Referral Ordered: Kip Bobby DOAllopathic & Osteopathic Physicians : Family Medicine (related to Body mass index [BMI] 33.0-33.9, adult) ordered Referral Referred To: [address] [place] [address], [phone] Ordered: Referrals: Referrals: [facility] [...] 33.0-33.9, adult) ordered Referral Referred To: [address], [phone] Ordered: Referrals: Referrals: [facility] [...] Order: Radiology Order US Carotid Arteries Bilateral ([id number]), Appointment on: Ordered Future Order: Lab Order [...] Order MR I Cervical Spine Without Contrast ([id number]), Appointment on: Ordered Future Order: Radiology Order US Carotid Arteries Bilateral ([id number]), Appointment on: Ordered Future Order: Lab Order Basic Me tab Panel W/EGFR [8] ([id number]), Appointment on: , Sent on: Sent Future Order: Lab Order HEMOGLOB IN A1C ([id number]), Appointment on: , Sent on: Sent Future Order: Lab Order MICROALB JAXON ALMODOVAR U(W/CR) ([id number]), Appointment on: , Sent on: Sent Future Order: Lab Order Basic Me tab Panel W/EGFR [8] ([id number]), Appointment on: , Sent on: Sent Future Order: Lab Order HEMOGLOB IN A1C ([id number]), Appointment on: , Sent on: Sent Future Order: Lab Order MICROALB JAXON ALMODOVAR U(W/CR) ([id number]), Appointment on: , Sent on: Sent Future Order: Lab Order Basic Me tab Panel W/EGFR [8] ([id number]), Appointment on: , Sent on: Sent Future Order: Lab Order ALT ([id number]), Appointment on: , Sent on: Sent Future Order: Lab Order TSH ([id number]), Appointment on: , Sent on: Sent Future Order: Lab Order HEMOGLOB IN A1C ([id number]), Appointment on: , Sent on: Sent Future Order: Lab Order MICROALB JAXON ALMODOVAR U(W/CR) ([id number]), Appointment on: , Sent on: Sent Future Order: Lab Order LIPID PA TATUM ([id number]), Appointment on: , Sent on: Sent Future Order: Lab Order Hemoglob in A1c ([id number]), Appointment on: , Sent on: Sent Future Order: Lab Order Vitamin B12 ([id number]), Appointment on: , Sent on: Sent Future Order: Lab Order Microalb /Creat Ratio, Rand Ur ([id number]), Appointment on: , Sent on: Sent Future Order: Lab Order Lipid Pa tatum With LDL/HDL Ratio ([id number]), Appointment on: , Sent on: Sent Future Order: Lab Order Basic Me tabolic Panel (8) ([id number]), Appointment on: , Sent on: Sent Future Order: Lab Order Pt Servi ce Center ([id number]), Sent on: Sent Future Order: Lab Order Microalb /Creat Ratio, Rand Ur ([id number]), Appointment on: , Sent on: Sent Future Order: Lab Order Basic Pa tabolic Panel (8) ([id number]), Appointment on: , Sent on: Sent Future Order: Lab Order Pt Servi ce Center ([id number]), Sent on: Sent Future Order: Lab Order Hemoglob in A1c ([id number]), Appointment on: , Sent on: Sent Future Order: Lab Order CBC, Wayne telet; No Differential ([id number]), Appointment on: , Sent on: Sent Future Order: Lab Order Microalb /Creat Ratio, Rand Ur ([id number]), Appointment on: , Sent on: Sent Future Order: Lab Order Basic Me tabolic Panel (8) ([id number]), Appointment on: , Sent on: Sent Future Order: Lab Order Pt Servi ce Center ([id number]), Sent on: Sent Future Order: Lab Order Basic Me tabolic Panel (8) ([id number]), Appointment on: , Sent on: Sent Future Order: Lab Order Pt Servi ce Center ([id number]), Sent on: Sent Future Order: Lab Order Basic Me tab Panel W/EGFR (8) ([id number]), Appointment on: , Sent on: Sent Future Order: Lab Order ALT ([id number]), Appointment on: , Sent on: Sent Future Order: Lab Order ALBUMIN ([id number]), Appointment on: , Sent on: Sent Future Order: Lab Order LH ([id number]), Appointment on: , Sent on: Sent Future Order: Lab Order PROLACTI N ([id number]), Appointment on: , Sent on: Sent Future Order: Lab Order SEX HORM ONE BINDING GLOBULIN ([id number]), Appointment on: , Sent on: Sent Future Order: Lab Order TESTOSTE MERRY,TOTAL ([id number]), Appointment on: , Sent on: Sent Future Order: Lab Order TSH ([id number]), Appointment on: , Sent on: Sent Future Order: Lab Order T4,FREE ([id number]), Appointment on: , Sent on: Sent Future Order: Lab Order HEMOGLOB IN A1C ([id number]), Appointment on: , Sent on: Sent Future [...] Lab Order Microalb /Creat Ratio, Randm Ur ([id number]), Appointment on: , Sent on: Sent Future Order: Lab Order Basic Me tabolic Panel (8) ([id number]), Appointment on: , Sent on: Sent Future Order: Lab Order Basic Me tab Panel W/EGFR (8) ([id number]), Appointment on: , Sent on: Sent Future Order: Lab Order ALT ([id number]), Appointment on: , Sent on: Sent Future Order: Lab Order TSH ([id number]), Appointment on: , Sent on: Sent Future Order: Lab Order HEMOGLOB IN A1C ([id number]), Appointment on: , Sent on: Sent Future Order: Lab Order MICROALB JAXON ALMODOVAR U(W/CR) ([id number]), Appointment on: , Sent on: Sent Future Order: Lab Order LIPID PA TATUM ([id number]), Appointment on: , Sent on: Sent Future Order: Lab Order HGB A1C ([id number]), Appointment on: , Sent on: Sent Future Order: Lab Order ALT ([id number]), Appointment on: , Sent on: Sent Future Order: Lab Order URINALYS IS ([id number]), Appointment on: , Sent on: Sent Future Order: Lab Order Lead, Bl ood (Adult) ([id number]), Appointment on: , Sent on: Sent Future Order: Lab Order MICROALB /CREATININE RATIO -RANDOM ([id number]), Appointment on: , Sent on: Sent Future Order: Lab Order LIPID AK OFILE ([id number]), Appointment on: , Sent on: Sent Future Order: Lab Order BASIC ME TABOLIC PANEL ([id number]), Appointment on: , Sent on: Sent History [...] Eating OK. diabetes diabetes diabetes (comments) Son Rosetta, D in [place]. Weight gain with diet concnern and decrease mobility due to Sciatica-- Getting better. Soliqua 60 units a day [employer]. Fasting blood sugars mid 100's D Same diabetes (comments) To visit ricardo montes in [place]. He had muscle pain, we stopped the [...] relieved by Rest. Additional information: Pain. diabetes diabetes (comments) Multiple mus milena pain- PCP- + Ortho--PT -No help (had MRIs) Soliqua 60 units. No lows No log t States FBS Next checking--Last 2 days --FSB 160's. HAINES with stair climbing for a stairs--Saw PCP--He will eval. Not sure of diet has changed. Eating more crap. Going through a divorce. diabetes (comments) Undergoing a divorce. Bought a house. Lives alone. Doing OK not sure why he gained weight. Soliqua 60 unnits. Denies lows. . States FBS 130's D 120's. Seeing Ortho for cervical disk disease and causing ess activity. Orthopnea gave him an injection in December, but did not help much but he'll be seeing PT shortly diabetes diabetes diabetes (comments) Lives alone. Arm pain [...] getting off divorce. 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 Soliqua 60 units no lows. States FBS [...] FBS 140-150 D 120's. diabetes Colon Cancer Screeni jaya (comments) Had a COL 11 years ago, normal.No new symptoms. Is due for a repeat so presents today to discuss.PMH: type 2 Dm, CKD, HTN, HLPSH: no abdominal surgeriesMeds: no NSAIDs dailyAllergies: NKDAFH: no colon cancer Colon Cancer Screening diabetes diabetes (comments) Divorce and job is stressful but OK. Soliqua 50 units. No lows. States FBS 150-180 D 120's Numbness of both third fingers for past month or so diabetes (comments) Getting divo rced- Stressful Soliqua 50 units at NIGHT! No lows. States his fastings and dinnertime blood sugars are averaging 150s. diabetes diabetes(comments) Getting divor suresh. Works also stressful -too many jobs. Xigduo started last week- tolerating it OK. Toujeo 50 units at night. No lows, meter downloaded. Occas calf cramp at night--one episde last week. diabetes diabetes diabetes(comments) 's Zacko ma -remission- but marital strife. Had a [...] Pain and Numbness. diabetes diabetes(comments) 's Camilo ma -remission- Stress with job--Personalities. He will [...] for a few months--Humaira barton his PCP. diabetes(comments) ;'s tasia oam -remission--Doing well! Toujeo 50 units in the PM No lows, No log. FBS 140-160. D 140's Ran out Bydureon 6 months ago. diabetes diabetes diabetes(comments) Stress with w ork (better) and with 's medical problems (Cancer treatments) but now in remssion. Toujeo 50 units in the PM No lows. Forgot log. FBS 150-170 D 150-170, Denies lows. No complaints of snoring Nurse Comments fasting bg [phone] diabetes (comments) Stress with work and with [...] statin. Related to Mixed hyperlipidemia He is due [...] to Type 2 diabetes mellitus with hyperglycemia Had been repleted. W ill check next visit. Related to B12 deficiency He is less than 50% mild disease. ultrasound was done in 2020 We will recheck next visit. Related to Bilateral carotid bruits He is in goal. . His PCP apparently added medication and he'll call me with the names. Related to Essential (primary) hypertension This is relatively stable. Relat ed to [...] to CKD (chronic kidney disease), stage I Had been repleted. W ill check next visit. Related to B12 deficiency His A1c increased, m ost likely due to his cervical disease. He'll be seeing physical therapy so will not make an adjustment. Related to Type 2 diabetes mellitus with hyperglycemia He is in goal a statin. Related to Mixed hyperlipidemia He is less than 50% mild disease. [...] a statin. Related to Mixed hyperlipidemia He continues to make good progress. We'll not make any changes. Related to Type 2 diabetes mellitus with hyperglycemia This is stable. Related to CKD ( chronic kidney disease), stage I Not sure why this key s increased. We'll recheck this in 2 months and on return. 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 Re lated to B12 deficiency We'll first treat th is as above. He is on a statin. We will top the fish oil and recheck his lipids to see if he needs Vascepa. Related to Mixed hyperlipidemia His A1c is increase most likely due to diet. I explained the need to cut out the snacks and after dinner food. We'll continue the current regimen. Related to Type 2 diabetes mellitus with hyperglycemia This has improved. Related to CK D (chronic kidney disease), stage I this has improved. Related to Ty pe 2 diabetes mellitus with diabetic nephropathy It's somewhat elevat ed today. We'll treat this as above. Related to Essential (primary) hypertension His A1c went up a li ttle bit. He is going to cut back on his sweets. We will make any changes at this point. Related to Type 2 diabetes mellitus with hyperglycemia He is in goal. Related to Essen tial (primary) hypertension This is stable. Related to CKD ( chronic kidney disease), stage I His triglycerides ar e somewhat elevated his LDL could be improved. Will increase Lipitor to 40 mg a day. Related to Mixed hyperlipidemia This is fluctuating and we'll treat this as above. Related to Type 2 diabetes mellitus with diabetic nephropathy This is elevated tokeegan castro. He's been spiking intermittently and our office. [...] Type 2 diabetes mellitus with hyperglycemia This have been stabl e. We'll check next visit. 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 Related to CKD ( chronic kidney disease), stage I He is on a statin. W e'll check next visit. Related to Mixed hyperlipidemia We'll treat this as above. Relat ed to CKD (chronic kidney disease), stage I This most likely is due to lack of exercise. I encouraged him. Meanwhile, I'll increase the Soliqua to 60 units a day Related to Type 2 diabetes mellitus with hyperglycemia this is relatively s table. We'll treat [...] sees PCP. Related to Finger numbness This may be newly di scovered. I recommend he sees PCP. So Related to Heart murmur This has improved Related to Typ e 2 diabetes mellitus with diabetic nephropathy He's on a statin Related to Mixe d hyperlipidemia This is stable Related to CKD ( chronic kidney disease), stage I I encouraged him to restart the B12 Related to B12 deficiency Slightly high today. We will watch without adjustment Related to Essential (primary) hypertension This most likely is due to metformin. We'll start 500 ???g of B12, MCFP approved, daily. We'll check labs next visit. Related to B12 deficiency As below Related to CKD ( chronic kidney disease), stage I I asked him to check his blood pressure when he is relaxed at home or at the drugstore and let me know what it is. Related to Essential (primary) hypertension He is on a statin. Related to Mi xed hyperlipidemia His A1c is stable bu t high. I explained the need to take Soliqua 25 units tonight, then no more at night, and then 0-60 minutes before the first meal the day. He should increase this by 4 units every week until his fasting sugars are averaging 120 Related to Type 2 diabetes mellitus with hyperglycemia We'll check next visit. Related to Type 2 diabetes mellitus with diabetic nephropathy I showed him how to stretch. Rel ated to Leg cramps This is stable. Continue statin. Related to Mixed hyperlipidemia He is in goal. Related to Essen tial (primary) hypertension his A1c is improved significantly. In order [...] pe 2 diabetes mellitus with diabetic nephropathy As above. Related to CKD ( chronic kidney disease), stage I We'll check labs nex t visit. He is on a statin. Related to Mixed hyperlipidemia His has improved los ble check next visit. Related to Type 2 diabetes mellitus with diabetic nephropathy His blood pressures acceptable for now. Related to Essential (primary) hypertension his A1c is increase to my office [...] Type 2 diabetes mellitus with hyperglycemia Marshall Dominguez is making great progress with home exercises [...] goal. Related to Essen tial (primary) hypertension He is on a statin. We'll continu e. Related to Mixed hyperlipidemia We'll check next visit. Related to Type 2 diabetes mellitus with diabetic nephropathy His A1c increase mos t likely due [...] Related to Diabetes II, Uncontrolled, W/Renal Manifestations His triglycerides ar e slightly elevated. It [...]
== END 2024-07-29 15:11 | disposition home or self-care (01) ==
LOC: HO.HUSH 14:38
PROVIDERS: PCP Registered Nurse; Visit Provider Urology
DX: Z13.9 Encounter for screening, unspecified (principal)

== ENCOUNTER → 2024-07-29 14:38 | Outpatient (BNVA) | payer OTHER, SELFPAY | PROVIDERS: PCP Registered Nurse; Visit Provider Urology | DX: N28.1 Cyst of kidney, acquired (principal); R35.0 Frequency of micturition; R39.198 Other difficulties with micturition; E11.9 Type 2 diabetes mellitus without complications; Z79.899 Other long term (current) drug therapy | CPT/HCPCS: 81003 ==

== ENCOUNTER 2024-10-05 14:53 | Outpatient (REF) | payer OTHER, SELFPAY ==
--- NOTE | ~2024-10-05 | CT_ITS ---
EXAMINATION: CT ABDOMEN WITHOUT AND WITH CONTRAST CLINICAL INFORMATION: Indeterminate left renal cyst, lower pole COMPARISON: Ultrasound Sep 15 2024 TECHNIQUE: Contiguous axial thin section helical images of the abdomen were performed before and after the administration of IV contrast and 85 mL of Omnipaque 350 intravenous contrast. The data set was reformatted in the coronal and sagittal planes and reviewed on an independent workstation. This CT examination was performed using dose optimization techniques as appropriate, variously including the following: *Automated exposure control *Adjustment of mA and/or kV according to patient size (this includes techniques or standardized protocols for targeted exams where dose is matched to indication/reason for exam; i.e. extremities or head) *Use of iterative reconstruction technique DLP: 586 mGY*cm FINDINGS: KIDNEYS: RIGHT KIDNEY: In the superior pole of the right kidney there is a lesion measuring 5 x 8 mm that is too small to characterize. Margins of the lesion are somewhat ill-defined. There is a lesion in the lower pole that is also too small to characterize. There is a simple renal cyst in the anterior lower renal pelvis. LEFT KIDNEY: Again seen is a lesion in the lower pole the left kidney. It measures 3.7 x 2.5 x 2.8 cm (transverse by AP by cc). It is mostly cystic with thin apparent less than 1 mm) internal septations. Thin linear calcification are also present. There is a simple renal cyst in the medial superior pole. LUNG BASES: There is a 11 mm groundglass nodular density in the lateral right lower lobe, adjacent to major fissure (series 8 image /). LIVER, GALLBLADDER, AND BILIARY TREE: Mild fatty changes are present in the liver. The gallbladder is unremarkable. PANCREAS: Unremarkable SPLEEN: Unremarkable. There is a splenule inferiorly. ADRENAL GLANDS: Unremarkable BOWEL LOOPS: A few scattered pseudodiverticula are present throughout the colon without adjacent inflammation. LYMPH NODES: Normal. VASCULAR: Multifocal atherosclerotic calcific lesions are present in the abdominal aorta and mesenteric vessels. BONES: Osteophytes and disc space narrowing is most pronounced in the lower thoracic spine. CT/CT abdomen wo/w IV con IMPRESSION: Bosniak II cyst in lower pole left kidney hairline septation/calcifications. Classified as a benign minimally complex cyst. Indeterminate lesion in the medial superior pole the right kidney is too small to characterize. 11 mm groundglass nodular density in the right lower lobe. Fleischner Society states CT at 6-12 months to confirm persistence, then CT every 2 years until 5 years . Fatty liver. Electronically signed by: Ming Hurley MD 10/05/2024 04:36 PM EDT
[2024-10-05] MEDS: iohexoL 350 MG/ML 100 ML INFUS..BTL IV (15:56)
--- OUTSIDE RECORDS SUMMARY | 2024-10-05 17:16 | XMS_ITS | Continuity of Care Document ---
Author Organization [facility] [address] [place] [address] Phone [phone] Care Team Providers Care Underwriting Account Representative Name Role Phone RICKI Hickman Care Team Information R eceiver [phone] Problems Active Problems Provider Date Hyperlipidemia EMIR Noel Onset: 2024 Essential hypertension EMIR Noel Onset: 07/05/2024 Type 2 diabetes mellitus EMIR Noel Onse t: 07/05/2024 History of coronary artery bypass grafting EMIR Bennett Onset: 08/08/2024 Social History Type Date Description Comments Sex Male Sex Unknown Marital Status Legal Status: Lives With Alone Tobacco Use Start: Unknown End: Unknown Quit ETOH Use Occasionally consumes alcoho l Medications Active Medications SIG Qnty Indications Ordering Provider Date Oqmkzqjn9dq/0.5ML Solution Auto-Inject inject 5 mg weekly under the skin as directed 2ml E11.42 Stephanie Ordonez M.D. 07/06/2024 I25.10 Z95.1 Xigduo XR5-1000mg Tablets ER 24HR RICKI Hickman Tamsulosin HCL0.4mg Capsules U nknown [id number] Tablets RICKI Palma [id number]-xzc/ML Solu tion Pen-Inject Bernadette Gonzalez N.P. Freestyle Elina 3 Plus/Sensor/Glucose Monitoring SystemMisc ARSH HickmanP-Wai [id number] Capsules Once a day Brad Giordano BEHAVIORAL HEALTH WORKER-Wai Atorvastatin Aylchlb82nc Tablets Ariana Giordano BEHAVIORAL HEALTH WORKERReidWai BD Pen Needle/Short/Ultra-Fine/31G X 8mm31G X 8 mm Misc Unknown 0 Metoprolol Succinate ER25mg Tablets ER 24HR Ariana GiordanoRICKI Onetouch VerioStrips Ariana Giordano BEHAVIORAL HEALTH WORKERMonica History Medications Mounjaro2.5mg/0.5ML Solution Auto-Inject inject 2.5 [...] Medical Devices Description No Information Available Encounters Type Date Location Provider Dx Diagnosis Office Visit 07/06/2024 9:15a Main Office EMIR Noel 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
[2024-10-06 07:08] LABS: Creatinine POC 0.7 mg/dL (0.5-1.4); GFR POC > 60
== END 2024-10-05 14:54 | disposition home or self-care (01) ==
LOC: HO.CT 14:53
PROVIDERS: PCP Registered Nurse; Visit Provider Urology
DX: N28.1 Cyst of kidney, acquired (principal)
CPT/HCPCS: 74170; 82565; Q9967

== ENCOUNTER → 2024-10-05 14:54 | Outpatient (BNV) | payer OTHER, SELFPAY | PROVIDERS: PCP Registered Nurse; Visit Provider Radiology Diagnostic Radiology | DX: N28.1 Cyst of kidney, acquired (principal) | CPT/HCPCS: 74170 ==

== ENCOUNTER 2024-10-28 15:51 | Outpatient (AMB) | payer OTHER, SELFPAY ==
--- OUTSIDE RECORDS SUMMARY | 2024-04-12 05:27 | XMS_ITS | Continuity of Care Document ---
Author Organization [facility] Address [address] [facility] [address] [place] [id number] Phone Care Team Providers Care Aligning Checker Name Role Phone Campbell ARREAGA, FACP, CDE, Clint Unavailable Yudi vailable Allergies, Adverse Reactions, Alerts Substance Reaction Status Criticality No Known Allergies Active No Inform ation Medications Medication Instructions Dosage Effective Dates (start - stop) Status Comments BD UF SHORT PEN NEEDLE [id number] USE 1 DAILY 1 - Active XIGDUO XR 5-1000MG TB24 TAKE TWO TABLETS BY MOUTH EVERY DAY IN THE MORNING WITH FOOD 2 tablet - Active Soliqua 100/33 100 unit-33 mcg/mL subcutaneous insulin pen 40 units per day - Active 90 day supply OneTouch Verio test strips use by test route 3 times every day Not Available - Active FreeStyle Elina 3 Sensor device Change every 14 days - Active ATORVASTATIN CALCIUM 80MG TABS TAKE ONE TABLET BY MOUTH EVERY DAY - Active ORDER: Vitamin B12, 500 g a day - Active metoprolol succinate ER 25 mg tablet,extended release 24 hr take 1 tablet by ORAL route every day 25 MG - Active aspirin 81 mg chewable tablet chew 1 tablet by oral route every day 81 MG - Active BD PEN NEEDLE SHORT 31G X 8 MM MISC USE 1 DAILY 1 - No Longer Active Procedures Procedure Date Hemoglobin; A1C Diast Bp 80-89 Mm Hg OFFICE/OUTPATIENT VISIT, EST-Detailed Se p Diast Bp < 80 Mm Hg Syst Bp < 130 Mm Hg OFFICE/OUTPATIENT VISIT, EST-Detailed Ma Diast Bp < 80 Mm Hg Syst Bp < 130 Mm Hg OFFICE/OUTPATIENT VISIT, EST-Detailed Ja Hemoglobin; A1C Diast Bp < 80 Mm [...] OFFICE/OUTPATIENT VISIT, EST-Detailed Oc OFFICE/OUTPATIENT VISIT, EST-Detailed Alba Hemoglobin; A1C OFFICE/OUTPATIENT VISIT, EST-Detailed Ja COLONOSCOPY [...] GLUCOSE BLOOD TEST OFFICE/OUTPATIENT VISIT, EST-Detailed No v GLUCOSE BLOOD TEST OFFICE/OUTPATIENT VISIT, EST-Detailed Au g GLUCOSE BLOOD TEST OFFICE/OUTPATIENT VISIT, EST-Detailed Ma [...] on Encounter [facility] [address], [place], [id number], tel:[phone] [facility] No Information 4 Campbell Alejandra, [facility] [place], [place], [facility], . tel:[phone] [facility] [address] [address], [place], [place], [address] [place] [address], tel:[phone] [facility] No Information 4 Campbell Alejandra, [facility] [place], [place], [facility], . tel:[phone] [facility] [address], [address] [place] [address], tel:[phone] [facility] No Information 4 Campbell Alejandra, [facility] [place], [place], [facility], . 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 tel:[phone] Referring Provider: Rafael Lerma Dr. [facility] [place], [address]. tel:[phone] [facility] [address] [address], [place], [place], [id number], tel:[phone] [facility] No Information [address] [place] [address], [facility] [place], [address], [place]. tel:[phone] OFFICE/OUTPAT IENT VISIT, EST-Detailed [facility] [address] [address], [place], [place], [id number], tel:[phone] [facility] diabetes (chief complaint) Type 2 diabetes mellitus with hyperglycemi aBilateral carotid bruitsMixed hyperlipidem iaB12 deficiencyTy pe 2 diabetes mellitus with diabetic nephropathyB papo mass index [BMI] 33.0-33.9, adult August- [address] [place] [address], [facility] [place], [place], [facility], . tel:[phone] Consulting Provider: Eloise Paz MD, [address] [place] [address], [id number]. Referring Provider: Clint Hightower I, [address] [place] [address] [facility] [place], [place], [facility]. tel:[phone] [facility] [address] [address], [place], [place], [id number], tel:[phone] [facility] No Information [address] [place] [address], [facility] [place], [address], . tel:[phone] OFFICE/OUTPAT IENT VISIT, EST-Detailed [facility] [address], [place], [place], [id number], tel:[phone] [facility] diabetes (chief complaint) Type 2 diabetes mellitus with hyperglycemi aType 2 diabetes mellitus with diabetic nephropathyB ilateral carotid bruitsMixed hyperlipidem iaCKD (chronic kidney disease), stage IBody mass index [BMI] 33.0-33.9, wcguyS27 deficiencyBo dy mass index [BMI] 35.0-35.9, adult Apr- 3 Campbell Alejandra, [facility] [place], [address], . tel:[phone] Referring Provider: Rafael Lerma Dr. [facility] [place], [place], [facility]. tel:[phone] OFFICE/OUTPAT IENT VISIT, EST-Detailed [facility] [address], [place], [place], [address], tel:[phone] [facility] diabetes (chief complaint) Type 2 diabetes mellitus with hyperglycemi aMixed hyperlipidem iaType 2 diabetes mellitus with diabetic nephropathyB ilateral carotid bruitsBody mass index [BMI] 33.0-33.9, adultEssenti al (primary) hypertension 2 Campbell Alejandra, [facility] [place], [address], [place]. tel:[phone] Referring Provider: Rafael Lerma [facility] Justyn [facility] [place], [place], [facility]. tel:[phone] Office/Outpat ient Visit, Est [facility], [address] [facility], [place], [place], [id number], tel:[phone] [facility] Right hip pain (chief complaint) Unilateral primary osteoarthrit is, right hipBody mass index [BMI] 33.0-33.9, adultLow back pain, unspecified [address] [facility], [place], [address], [place]. tel:[phone] Referring Provider: Jacob Howard, [address] [facility], [place], [address]. tel:[phone] OFFICE/OUTPAT IENT VISIT, EST-Detailed [facility] [address], [place], [place], [id number], tel:[phone] [facility] diabetes (chief complaint) Type 2 diabetes mellitus with hyperglycemi aCKD (chronic kidney disease), stage IBody mass index [BMI] 32.0-32.9, [id number] deficiencyBi lateral carotid bruitsEssent ial (primary) hypertension Muscle painBody mass index [BMI] 33.0-33.9, adult Jul- 2 Campbell Jaramillo. [address] [place] [address], [facility] [place], [place], [facility], . tel:[phone] Referring Provider: Clint Hightower I, Rafael [address] [facility] [place], [address]. tel:[phone] OFFICE/OUTPAT IENT VISIT, EST-Detailed [facility] [facility] [address] [facility], [place], [place], [id number], tel:[phone] [facility] diabetes (chief complaint) Type 2 diabetes mellitus with hyperglycemi aMixed hyperlipidem iaB12 deficiencyBi lateral carotid bruitsCKD (chronic kidney disease), stage IType 2 diabetes mellitus with diabetic nephropathyB papo mass index [BMI] 32.0-32.9, adult Jan- 1 Campbell Jaramillo. [address], [facility], [address], [place]. tel:[phone] Referring Provider: Clint Hightower I, [address] [facility], [place], [address]. tel:[phone] Office/Outpat ient Visit, Est [facility], [address] [place] [place] [address], [place], [place], [id number], [place] tel:[phone] [facility] Radiculopath y, cervical regionBody mass index [BMI]30.0-30 .9, adultCervica l disc disorder, unspecified, unspecified cervical regionImping ement syndrome of left shoulder Dec- 1 Louis Kumar. [address], [facility] , [place], [address], [place]. tel:[phone] Referring Provider: José Myers, [address] [facility] , [place], [address]. tel:[phone] [facility], [address] [place] [place] [address], [place], [place], [id number], [place] tel:[phone] [facility] No Information 1 Louis Kumar. [address], [facility] , [place], [address], [place]. tel:[phone] Referring Provider: José Myers, [address] [facility] , [place], [address]. tel:[phone] [facility], [address] [place] [place] [address], [place], [place], [id number], [place] tel:[phone] [facility] Encounter for other preprocedura l examination 1 Louis Kumar. [address], [address] , [place], [address], [place]. tel:[phone] Referring Provider: Cristina Rider, [address] [address], [place], [address]. tel:[phone] Office/Outpat ient Visit, Est [facility], [address] [address], [place], [place], [id number], [place] tel:[phone] [facility] CervicalgiaR adiculopathy , cervical regionOther spondylosis with radiculopath y, cervical region 1 Louis Kumar. [address], [address] , [place], [address], [place]. tel:[phone] Referring Provider: José Myers, [address] [facility], [place], [address]. tel:[phone] Office/Outpat ient Visit, Est [facility], [address] [place] [address], [place], [place], [id number], [place] tel:[phone] [facility] [place] CervicalgiaR adiculopathy , cervical region 1 Louis Kumar. [address], [address] , [place], [address], [place]. tel:[phone] Referring Provider: José Myers, [address] [facility] , [place], [address]. tel:[phone] Office/Outpat ient Visit, Est [facility], [address] [place] [place] [address], [place], [place], [id number], [place] tel:[phone] [facility] Pain in right kneeUnilater al primary osteoarthrit is, right kneeUnspecif ied internal derangement of right kneeDerangem ent of unspecified medial meniscus due to old tear or injury, right kneeSprain of anterior cruciate ligament of right knee, initial encounterBod y mass index [BMI] 31.0-31.9, adult August- [address] [facility] [place], [address], [place]. tel:[phone] Referring Provider: Jacob Howard, [address] [place], [address]. tel:[phone] OFFICE/OUTPAT IENT VISIT, EST-Detailed [facility] [facility] [address], [place], [place], [id number], [place] tel:[phone] [facility] diabetes (chief complaint) Type 2 diabetes mellitus with hyperglycemi aMixed hyperlipidem iaEssential (primary) hypertension CKD (chronic kidney disease), stage IType 2 diabetes mellitus with diabetic nephropathyB ilateral carotid [id number] deficiencyBo dy mass index [BMI] 31.0-31.9, adult Jul-2 1 Campbell Jaramillo. [address], [facility] [place], [address], [place]. tel:[phone] Referring Provider: Clint Hightower I, [address] [facility] [place], [address]. tel:[phone] Office/Outpat ient Visit, Est [facility], [address] [facility], [place], [place], [id number], [place] tel:[phone] [facility] [place] Neck pain (chief complaint) CervicalgiaB papo mass index [BMI] 33.0-33.9, adultRadicul opathy, cervical region Apr- 1 Louis Kumar. [address], [facility] , [place], [address], [place]. tel:[phone] Referring Provider: Thien Bush [address] [facility], [place], [address]. [phone] Office/Outpat ient Visit, Est [facility], [address] [facility] [address] [place] [address], [place], [place], [id number], [place] [phone] [facility] [place] Carpal tunnel syndrome, right upper limbTrigger finger, left ring fingerBody mass index [BMI] 33.0-33.9, adultPain in left wristPain in right wrist Apr-0 1 Eleazar Neumann. [address] , [place], [address], [place]. tel:[phone] Referring Provider: Kip Ray, [address], [address]. tel:[phone] Office/Outpat ient Visit, Est [facility], [address] [facility] [address] [place] [address], [place], [place], [id number], [place] tel:[phone] [facility] [place] Right knee pain (chief complaint) Pain in right kneeUnilater al primary osteoarthrit is, right kneeUnspecif ied internal derangement of right kneeDerangem ent of unspecified medial meniscus due to old tear or injury, right kneeSprain of anterior cruciate ligament of right knee, initial encounterBod y mass index [BMI] 33.0-33.9, adult Mar-0 - 1 Lee James. [address] [facility] [address] , [place], [address], [place]. tel:[phone] Referring Provider: Kip Ray, [address], [address]. tel:[phone] Office/Outpat ient Visit, [facility], [address] [place] [address], [place], [place], [id number], [place] tel:[phone] [facility] [place] Carpal tunnel syndrome, right upper limbBody mass index [BMI] 33.0-33.9, adult Jun-0 1 Louis José. [address] , [place], [address], [place]. tel:[phone] Referring Provider: Kip Ray, [address] [address], [place], [address]. tel:[phone] Office/Outpat ient Visit, [facility], [address] [facility] [address], [place], [place], [address], [place] tel:[phone] [facility] Right hand pain (chief complaint) Carpal tunnel syndrome, right upper limbTrigger finger, left ring fingerBody mass index [BMI] 33.0-33.9, adult 1 Eleazar Neumann. [address] , [place], [address], [place]. tel:[phone] Referring Provider: Thien Bush, [address] [facility], [place], [address]. tel:[phone] OFFICE/OUTPAT IENT VISIT, EST-Detailed [facility] [facility] [address], [place], [place], [address], [place] tel:[phone] [facility] diabetes (chief complaint) Type 2 diabetes mellitus with hyperglycemi aType 2 diabetes mellitus with diabetic nephropathyB 12 deficiencyBi lateral carotid bruitsCKD (chronic kidney disease), stage IBody mass index [BMI] 34.0-34.9, adultEssenti al (primary) hypertension Mixed hyperlipidem ia 0 Campbell Jaramillo. [address], [facility] [place], [address], [place]. tel:[phone] Referring Provider: Clint Hightower I, [address] [facility] [place], [address]. tel:[phone] OFFICE/OUTPAT IENT VISIT, EST-Detailed [facility] [address] [address], [place], [place], [id number], tel:[phone] [facility] diabetes (chief complaint) Type 2 diabetes mellitus with hyperglycemi aType 2 diabetes mellitus with diabetic nephropathyC KD (chronic kidney disease), stage IEssential (primary) hypertension Mixed hyperlipidem iaB12 deficiencyLe ft ankle swellingHand numbnessBody mass index (BMI) 35.0-35.9, adultBilater al carotid bruits 8 0 Campbell Alejandra, [facility] [place], [address], . tel:[phone] Referring Provider: Rafael Lerma [address] [place] [address] [facility] [place], [place], [facility]. tel:[phone] OFFICE/OUTPAT IENT VISIT, EST-Detailed [facility] [address] [address], [place], [place], [address], [place] tel:[phone] [facility] diabetes (chief complaint) Hand numbnessType 2 diabetes mellitus with hyperglycemi aMixed hyperlipidem iaCKD (chronic kidney disease), stage IType 2 diabetes mellitus with diabetic nephropathyE ssential (primary) hypertension Body mass index (BMI) 34.0-34.9, adult Oct 0-201 9 Campbell Alejandra, [facility] [place], [address], [place]. tel:[phone] Referring Provider: Rafael Lerma Dr. [facility] Justyn [facility] [place], [address]. tel:[phone] OFFICE/OUTPAT IENT VISIT, EST-Detailed [facility] [address], [place], [place], [id number], tel:[phone] [facility] diabetes (chief complaint) Type 2 diabetes mellitus with hyperglycemi aType 2 diabetes mellitus with diabetic nephropathyC KD (chronic kidney disease), stage IEssential (primary) hypertension Mixed hyperlipidem iaBody mass index (BMI) 34.0-34.9, adult 9 Campbell Baez [address] [place] [address], [facility] [place], [place], [facility], . tel:[phone] Referring Provider: Rafael Lerma Dr[facility] 101 [facility] [place], [place], [facility]. tel:[phone] OFFICE/OUTPAT IENT VISIT, EST-Detailed [facility] [facility] [address] [facility], [place], [place], [id number], tel:[phone] [facility] diabetes (chief complaint) Type 2 diabetes mellitus with diabetic nephropathyT ype 2 diabetes mellitus with hyperglycemi aCKD (chronic kidney disease), stage IEssential (primary) hypertension Mixed hyperlipidem ia [address] [facility] 101, [facility] [place], [place], [facility], . tel:[phone] Referring Provider: Rafael Lerma Dr[facility] 101 [facility] [place], [place], [facility]. tel:[phone] [facility], [address] [place] [address], [address], [place], [place], [facility], tel:[phone] [facility] No Information 9 Paul Westbrook. [address] [place] [address], [address] , [place], [id number], [place]. tel:[phone] Referring Provider: Cristina Rider, [address] [place] [address], [address]. tel:[phone] [facility], [address] [facility], [place], [address], tel:[phone] [facility] [place] No Information 9 Paul Westbrook. [address] [facility], [address], [place], [address], [place]. tel:[phone] OFFICE/OUTPAT IENT VISIT, [facility], [address] [facility], [address], [place], [address], tel:[phone] [facility] Office Colon Cancer Screening (chief complaint) Colon cancer screening 8 Paul Westbrook. [address] [facility], [address], [place], [id number], [place]. tel:[phone] Referring Provider: Cristina Rider, [address] [place] [address], [address]. tel:[phone] [facility], [address] [place] [address], [address], tel:[phone] [facility] No Information 8 Diamante Shin. [address] [place] [address], [id number], [place]. tel:[phone] OFFICE/OUTPAT IENT VISIT, EST-Detailed [facility] [address], [place], [place], [address], [place] tel:[phone] [facility] diabetes (chief complaint) Type 2 diabetes mellitus with hyperglycemi aEssential (primary) hypertension B12 deficiencyTy pe 2 diabetes mellitus with diabetic nephropathyM ixed hyperlipidem iaCKD (chronic kidney disease), stage IFinger numbnessHear t murmur Sep-[address] [place] [address], [facility] [place], [place], [facility], . tel:[phone] Referring Provider: Rafael Lerma [address] [place] [address] [facility] [place], [place], [facility]. tel:[phone] OFFICE/OUTPAT IENT VISIT, EST-Detailed [facility] [address], [address] [place] [address], tel:[phone] [facility] diabetes (chief complaint) Type 2 diabetes mellitus with hyperglycemi aMixed hyperlipidem iaEssential (primary) hypertension CKD (chronic kidney disease), stage IType 2 diabetes mellitus with diabetic nephropathyB 12 deficiency Jul-0 [address] [place] [address], [facility] [place], [facility], . tel:[phone] Referring Provider: Rafael Lerma [address] [place] [address] [facility] [place], [place], [facility]. tel:[phone] OFFICE/OUTPAT IENT VISIT, EST-Detailed [facility] [address], [id number], tel:[phone] [facility] diabetes (chief complaint) Type 2 diabetes mellitus with hyperglycemi aType 2 diabetes mellitus with diabetic nephropathyM ixed hyperlipidem iaEssential (primary) hypertension Leg cramps Dec-[address] [facility] Justyn, [facility] [place], [facility], . tel:[phone] Referring Provider: Rafael Lerma Dr[address] [facility] [place], [address]. tel:[phone] OFFICE/OUTPAT IENT VISIT, EST-Detailed [facility] [address], [place], [place], [id number], [place] tel:[phone] [facility] diabetes (chief complaint) Type 2 diabetes mellitus with hyperglycemi aType 2 diabetes mellitus with diabetic nephropathyM ixed hyperlipidem iaEssential (primary) hypertension CKD (chronic kidney disease), stage I 7 Campbell Jaramillo. [address], [facility] [place], [address], [place]. tel:[phone] Referring Provider: Clint Hightower I, [address] [facility] 101 [facility] [place], [address]. tel:[phone] Office/Outpat ient Visit, Est [facility], [address] [address], [place], [place], [id number], [place] tel:[phone] [facility] [place] Low back painOther intervertebr al disc degeneration , lumbar regionRadicu lopathy, lumbar regionOther intervertebr al disc displacement , lumbar region 7 Shona Gutierrez. [address] Diane Palmer, [facility] , [place], [address], [place]. tel:[phone] Referring Provider: iKp Ray, [address] [address], [place], [address]. tel:[phone] Office/Outpat ient Visit, [facility], [address] [address], [place], [place], [id number], [place] tel:[phone] [facility] [place] Back pain and Back and left leg pain (chief complaint) Low back painOther intervertebr al disc degeneration , lumbar regionRadicu lopathy, lumbar regionOther intervertebr al disc displacement , lumbar region Randell-0 7 Shona Gutierrez. [address] [facility] , [place], [address], [place]. tel:[phone] Referring Provider: Kip Ray, [address] [place] [address], [address]. tel:[phone] [facility] [address] [facility], [place], [place], [id number], [place] tel:[phone] [facility] Essential (primary) hypertension Mixed hyperlipidem iaType 2 diabetes mellitus with diabetic nephropathy Jun-2 7 Campbell Baez [address] [place] [address] [address], [facility] [place], [address], [place]. tel:[phone] OFFICE/OUTPAT IENT VISIT, EST-Detailed [facility] [address] [address], [place], [place], [id number], [place] tel:[phone] [facility] diabetes (chief complaint) Type 2 diabetes mellitus with diabetic nephropathyT ype 2 diabetes mellitus with hyperglycemi aMixed hyperlipidem iaEssential (primary) hypertension Jun- 7 Campbell Baez [address] [place] [address], [facility] [place], [address], [place]. tel:[phone] Referring Provider: Clint Hightower I, [address] [place] [address] [address] [facility] [place], [address]. tel:[phone] OFFICE/OUTPAT IENT VISIT, EST-Detailed [facility] [address] [address], [place], [place], [id number], tel:[phone] [facility] diabetes (chief complaint) Type 2 diabetes mellitus with diabetic nephropathyM ixed hyperlipidem iaEssential (primary) hypertension Type 2 diabetes mellitus with hyperglycemi a [address] [facility] 101, [facility] [place], [address], . tel:[phone] Referring Provider: Rafael Lerma Dr[address] [facility] 101 [facility] [place], [place], [facility]. tel:[phone] [facility], [address], [address], tel:[phone] [facility] No Information 6 Diamante Shin. [address], [id number], [place]. tel:[phone] OFFICE/OUTPAT IENT VISIT, EST-Detailed [facility] [address], [address] [place] [address], tel:[phone] [facility] diabetes (chief complaint)Nu rse Comments (chief complaint) Type 2 diabetes mellitus with hyperglycemi aType 2 diabetes mellitus with diabetic nephropathyE ssential (primary) hypertension Mixed hyperlipidem ia Jun-[address] [place] [address] [address], [facility] [place], [place], [facility], [place]. tel:[phone] Referring Provider: Clint Hightower I, [address] [facility] 101 [facility] [place], [address]. tel:[phone] OFFICE/OUTPAT IENT VISIT, EST-Detailed [facility] [address] [address], [place], [place], [address], tel:[phone] [facility] diabetes (chief complaint) Diabetes II, Uncontrolled , W/Renal Manifestatio nsPROTEINURI AHypertensio n, BenignMixed Hyperlipidem ia Sep- [address] [address], [facility] [place], [place], [facility], . tel:[phone] Referring Provider: Clint Hightower I, [address] [facility] 101 [facility] [place], [place], [facility]. tel:[phone] OFFICE/OUTPAT IENT VISIT, EST-Detailed [facility] [address] [address], [place], [place], [id number], tel:[phone] [facility] diabetes (chief complaint) Diabetes II, Uncontrolled , W/Renal Manifestatio nsHypertensi on, BenignMixed Hyperlipidem iaPROTEINURI A [address] [address], [facility] [place], [place], [facility], . tel:[phone] Referring Provider: Clint Hightower I, [address] [address] [facility] [place], [place], [facility]. tel:[phone] OFFICE/OUTPAT IENT VISIT, EST-Complex [facility] [address] [address], [place], [place], [id number], tel:[phone] [facility] diabetes (chief complaint) Diabetes II, Uncontrolled , W/Renal Manifestatio nsHypertensi on, BenignMixed Hyperlipidem iaPROTEINURI AErectile Dysfunction [address], [facility] [place], [address], . tel:[phone] Referring Provider: Clint Hightower I, [address] [facility] 101 [facility] [place], [address]. tel:[phone] [facility] [address] [address], [place], [place], [id number], tel:[phone] [facility] Diabetes II, Uncontrolled , W/Renal Manifestatio ns 5 Campbell Baez [address], [facility] [place], [place], [facility], . tel:[phone] OFFICE/OUTPAT IENT VISIT, EST-Detailed [facility] [address] [address], [place], [place], [id number], tel:[phone] [facility] diabetes (chief complaint)Nu rse Comments (chief complaint) Hypertension , BenignMixed Hyperlipidem iaErectile DysfunctionP ROTEINURIA 4 Campbell Baez [address], [facility] [place], [place], [facility], . tel:[phone] Referring Provider: Kip Ray, [address] [place] [address], [address]. tel:[phone] OFFICE/OUTPAT IENT VISIT, EST-Detailed [facility] [address] [address], [place], [place], [id number], tel:[phone] [facility] diabetes (chief complaint)er ectile dysfunction (chief complaint) Diabetes II, Uncontrolled , W/Renal Manifestatio nsPROTEINURI AMixed Hyperlipidem iaHypertensi on, BenignErecti le Dysfunction 3 Campbell Baez [address], [facility] [place], [place], [facility], . tel:[phone] Referring Provider: Kip Ray, [address], [address]. tel:[phone] OFFICE/OUTPAT IENT VISIT, EST-Detailed [facility] [address] [facility], [place], [place], [id number], tel:[phone] [facility] diabetes (chief complaint) Diabetes II, Uncontrolled , W/Renal Manifestatio nsHypertensi on, BenignMixed Hyperlipidem iaPROTEINURI A 3 Campbell Clint. [address], [facility] [place], [place], [facility], . tel:[phone] Referring Provider: Kip Ray, [address], [address]. tel:[phone] OFFICE/OUTPAT IENT VISIT, EST-Detailed [facility] [address] [facility], [place], [place], [address], tel:[phone] [facility] diabetes (chief complaint) Diabetes II, Uncontrolled , W/Renal Manifestatio nsMixed Hyperlipidem iaHypertensi on, Benign 3 Campbell Clint. [address], [facility] [place], [place], [facility], . tel:[phone] Referring Provider: Kip Ray, [address], [address]. tel:[phone] OFFICE/OUTPAT IENT VISIT, EST-Detailed [facility] [address] [facility], [place], [place], [id number], tel:[phone] [facility] diabetes type 2 (chief complaint) Diabetes II, Uncontrolled , W/Renal Manifestatio nsMixed Hyperlipidem iaHypertensi on, BenignPROTEI OSCAR Feb-0 5-201 3 Campbell Clint. [address], [facility] [place], [place], [facility], . tel:[phone] Referring Provider: Kip Ray, [address], [address]. tel:[phone] OFFICE/OUTPAT IENT VISIT, EST [facility] [address] [facility], [place], [place], [address], tel:[phone] [facility] diabetes (chief complaint) Diabetes II, Uncontrolled , W/Renal Manifestatio nsHypertensi on, BenignMixed Hyperlipidem iaPROTEINURI A 2 Campbell Clint. [address], [facility] [place], [place], [facility], . tel:[phone] Referring Provider: Kip Ray, [address], [address]. tel:[phone] OFFICE/OUTPAT IENT VISIT, EST [facility] [address] [facility], [place], [place], [address], tel:[phone] [facility] diabetes (chief complaint) Diabetes II, Uncontrolled , W/Renal Manifestatio nsPROTEINURI AHypertensio n, BenignMixed Hyperlipidem ia 2 Campbell Clint. [address], [facility] [place], [place], [facility], . tel:[phone] Referring Provider: Kip Ray, [address], [address]. tel:[phone] OFFICE/OUTPAT IENT VISIT, EST [facility], [place], [place], [address], tel:[phone] [facility] diabetes type 2 (chief complaint) Diabetes II, Uncontrolled Diabetes II, Uncontrolled , W/Renal Manifestatio nsMixed Hyperlipidem iaHypertensi on, BenignPROTEI OSCAR May- 9 2 Campbell Clint. [address], [facility] [place], [place], [facility], . tel:[phone] Referring Provider: Kip Ray, [address] [place] [address], [address]. tel:[phone] OFFICE/OUTPAT IENT VISIT, EST [facility] [address] [facility], [place], [place], [address], tel:[phone] [facility] diabetes (chief complaint) PROTEINURIAD iabetes II, Uncontrolled , W/Renal Manifestatio nsMixed Hyperlipidem iaHypertensi on, BenignJOINT PAIN-SHLDERP ROTEINURIA Jun- 2 Campbell Clint. [address], [facility] [place], [place], [facility], . tel:[phone] Referring Provider: Kip Ray, [address] [place] [address], [address]. tel:[phone] OFFICE/OUTPAT IENT VISIT, EST [facility] [address] [facility], [place], [place], [address], tel:[phone] [facility] diabetes (chief complaint) Diabetes II, Uncontrolled , W/Renal Manifestatio nsHypertensi on, BenignMixed Hyperlipidem iaJOINT PAIN-SHLDER Feb- 2- 2 Campbell Clint. [address], [facility] [place], [place], [facility], [place]. tel:[phone] Referring Provider: Kip Ray, [address], [address]. tel:[phone] [facility], [address] [place], [place], [address], [place] tel:[phone] [facility] No Information 2 Oliver Ortiz. [address] [place], [place], [id number], [place]. tel:[phone] OFFICE/OUTPAT IENT VISIT, EST [facility] [place], [address] [place], [place], [address], [place] tel:[phone] [facility] No Information 2 Oliver Ortiz. [address] [place], [place], [id number], [place]. tel:[phone] OFFICE/OUTPAT IENT VISIT, EST [facility] [facility] [address], [place], [place], [address], [place] tel:[phone] [facility] diabetes (chief complaint)Er ectile Dysfunction (chief complaint) Mixed Hyperlipidem iaHypertensi on, BenignDiabet es II, Uncontrolled , W/Renal Manifestatio nsErectile DysfunctionI nfluenza Vaccine 1 Campbell [facility] [address], [facility] [place], [address], [place]. tel:[phone] Referring Provider: Kip Ray, [address], [address]. tel:[phone] OFFICE/OUTPAT IENT VISIT, EST [facility] [facility] [address], [place], [place], [address], [place] tel:[phone] [facility] diabetes (chief complaint) Diabetes II, Uncontrolled , W/Renal Manifestatio nsMixed Hyperlipidem iaHypertensi on, Benign 1 Campbell Baez [address], [facility] [place], [place], [facility], . tel:[phone] Referring Provider: Kip Ray, [address], [address]. tel:[phone] OFFICE/OUTPAT IENT VISIT, EST [facility], [address] [place], [place], [id number], [place] tel:[phone] [facility] No Information 1 Oliver Ortiz. [address] [place], [place], [address], [place]. tel:[phone] OFFICE/OUTPAT IENT VISIT, EST [facility] [address], [place], [place], [address], tel:[phone] [facility] diabetes (chief complaint) Diabetes II, Uncontrolled Hypertension , BenignMixed Hyperlipidem ia 1 Campbell Baez [address], [facility] [place], [place], [facility], . tel:[phone] Referring Provider: Kip Ray, [address], [address]. tel:[phone] OFFICE/OUTPAT IENT VISIT, EST [facility] [address], [place], [place], [address], [place] tel:[phone] [facility] Diabetes II, Uncontrolled Mixed Hyperlipidem iaHypertensi on, BenignVITAMI N D DEFICIENCY NOSDiabetes II, Uncontrolled VITAMIN D DEFICIENCY NOSHX-EXPOSU RE TO LEADHX-EXPOS URE TO LEAD 0 Campbell Jaramillo. [address], [facility] [place], [place], [facility], . tel:[phone] Referring Provider: Kip Ray, [address] [place] [address], [address]. tel:[phone] Office/Outpat ient Visit, [facility], [address] [place], [place], [address], tel:[phone] [facility] No Information 0 Oliver Ortiz. [address] [place], [place], [address], . tel:[phone] OFFICE/OUTPAT IENT VISIT, [facility] [facility] [address], [place], [address], tel:[phone] [facility] No Information 0 Campbell Jaramillo. [address], [facility] [place], [place], [facility], . tel:[phone] Referring Provider: Kip Ray, [address] [place] [address], [address]. tel:[phone] Office Consultation [facility], [address] [facility], [address], [place], [facility], tel:[phone] [facility] No Information [address] Sherm[address]. [address] [facility], [address], [place], [address], . tel:[phone] Referring Provider: Kip Ray, [address] [place] [address], [address]. tel:[phone] Family History Family Member Type Diagnosis Age [...] Record Payers Payer name Insurance type Covered alliance party ID Authoriza tion(s) [employer] [facility] [id number] Social History Type Description Quantity Date Captured [...] Lifestyle educat ion regarding diet completed Goal Pneumococcal (PP V23) Vaccine. Due on due Goal Influenza vaccin e. Due on due Goal community health educator due Goal Dilated eye exam . Due on due Goal Assistant Printer Floor Covering / Nutr itionist. Due on due Goal Influenza vaccin e. Due on due Goal Dilated eye exam . Due on due Goal community health educator due Goal Pneumococcal (PP V23) Vaccine. Due on due Goal Assistant Printer Floor Covering / Nutr itionist. Due on due Goal Assistant Printer Floor Covering / Nutr itionist. Due on due Goal Pneumococcal (PP V23) Vaccine. Due on due Goal Influenza vaccin e. Due on due Goal Dilated eye exam . Due on due Goal community health educator due Goal Lipid panel. Due on due Goal Hemoglobin A1C. Due on due Goal Pneumococcal (PP V23) Vaccine. Due on due Goal Influenza vaccin e. Due on due Goal Lipid panel. Due on 016 due Goal Dilated eye exam . Due on due Goal Assistant Printer Floor Covering / Nutr itionist. Due on due Goal community health educator due Goal Assistant Printer Floor Covering / Nutr itionist. Due on due Goal Hemoglobin A1C. Due on due Goal community health educator due Goal Pneumococcal (PP V23) Vaccine. Due on due Goal Lipid panel. Due on due Goal Dilated eye exam . Due on due Goal Influenza vaccin e. Due on due Goal Lifestyle educat ion regarding diet completed Goal Assistant Printer Floor Covering / Nutr itionist. Due on due Goal Urine microalbum in. Due on due Goal Influenza vaccin e. Due on due Goal Pneumococcal (PP V23) Vaccine. Due on due Goal Lipid panel. Due on due Goal Dilated eye exam . Due on due Goal community health educator due Goal Lipid panel. Due on due Goal Assistant Printer Floor Covering / Nutr itionist. Due on due Goal community health educator due Goal Pneumococcal (PP V23) Vaccine. Due on due Goal Dilated eye exam . Due on due Goal Influenza vaccin e. Due on due Goal Pneumococcal (PP V23) Vaccine. Due on due Goal Dilated eye exam . Due on due Goal community health educator due Goal Influenza vaccin e. Due on due Goal Assistant Printer Floor Covering / Nutr itionist. Due on due Goal Pneumococcal (PP V23) Vaccine. Due on due Goal community health educator due Goal Foot exam. Due on 4 due Goal Assistant Printer Floor Covering / Nutr itionist. Due on due Goal Dilated eye exam . Due on due Goal Influenza vaccin e. Due on due Goal community health educator due Goal Urine microalbum in. Due on due Goal Assistant Printer Floor Covering / Nutr itionist. Due on due Goal GFR. Due on due Goal Pneumococcal (PP V23) Vaccine. Due on due Goal Dilated eye exam . Due on due Goal Hemoglobin A1C. Due on due Goal Lipid panel. Due on 016 due Goal Influenza vaccin e. Due on due Goal Foot exam. Due on 4 due Goal Foot exam. Due on due Goal Urine microalbum in. Due on due Goal Assistant Printer Floor Covering / Nutr itionist. Due on due Goal Lipid panel. Due on 014 due Goal Hemoglobin A1C. Due on due Goal Pneumococcal (PP V23) Vaccine. Due on due Goal GFR. Due on due Goal community health educator due Goal Dilated eye exam . Due on due Goal Influenza vaccin e. Due on due Goal Foot exam. Due on due Goal Dilated eye exam . Due on due Goal Diabetes educato r. Due on due Goal Assistant Printer Floor Covering / Nutr itionist. Due on due Goal Influenza vaccin e. Due on due Goal Pneumococcal (PP V23) Vaccine. Due on due Referral Ordered: Cristina [facility] : Family Medicine (related to Body mass index [BMI] 33.0-33.9, adult) ordered Referral Referred To: Cristina Douglas [address] [place] [address], [phone] Ordered: Referrals: [facility] : Family Medicine. Cristina Douglas Consult and Advise Appointment date/timeframe: 09/13/2021 ordered Referral Ordered: Cristina Mendoza (related to Cervicalgia) ordered Referral Ordered: Kip Bobby DOAllopathic & Osteopathic Physicians : Family Medicine (related to Body mass index [BMI] 31.0-31.9, adult) ordered Referral Ordered: Cristina Mendoza (related to Carpal tunnel syndrome, right upper limb) ordered Referral Referred To: [address] [place] [address], [phone] Ordered: Referrals: Referrals: Lisa. Reji Consult and Advise Appointment date/timeframe: 07/27/2020 ordered Referral Ordered: Kip Bobby DOAllopathic & Osteopathic Physicians : Family Medicine (related to Body mass index [BMI] 33.0-33.9, adult) ordered Referral Referred To: [address] [place] [address], [phone] Ordered: Referrals: Referrals: [facility] : Family Medicine. Kip Bobby DO Consult and Advise Appointment date/timeframe: 06/27/2020 ordered Referral Ordered: Kip Bobby DOAllopathic [facility] Osteopathic Physicians : Family Medicine (related to Body mass index [BMI] 33.0-33.9, adult) ordered Referral Ordered: Kip Bobby DOAllopathic & Osteopathic Physicians : Family Medicine (related to Body mass index [BMI] 33.0-33.9, adult) ordered Referral Referred To: [address], [phone] Ordered: Referrals: Referrals: [facility] : Family Medicine. Kip Bobby DO Consult and Advise Appointment date/timeframe: 06/16/2020 ordered Future Order: Lab Order Hemoglob in [...] Order: Radiology Order US Carotid Arteries Bilateral ([id number]), Appointment on: Ordered Future Order: Lab Order [...] Order MR I Cervical Spine Without Contrast ([id number]), Appointment on: Ordered Future Order: Radiology Order US Carotid Arteries Bilateral ([id number]), Appointment on: Ordered Future Order: Lab Order Basic Me tab Panel W/EGFR [8] ([id number]), Appointment on: , Sent on: Sent Future Order: Lab Order HEMOGLOB IN A1C ([id number]), Appointment on: , Sent on: Sent Future Order: Lab Order MICROALB JAXON ALMODOVAR U(W/CR) ([id number]), Appointment on: , Sent on: Sent Future Order: Lab Order Basic Me tab Panel W/EGFR [8] ([id number]), Appointment on: , Sent on: Sent Future Order: Lab Order HEMOGLOB IN A1C ([id number]), Appointment on: , Sent on: Sent Future Order: Lab Order MICROALB JAXON ALMODOVAR U(W/CR) ([id number]), Appointment on: , Sent on: Sent Future Order: Lab Order Basic Me tab Panel W/EGFR [8] ([id number]), Appointment on: , Sent on: Sent Future Order: Lab Order ALT ([id number]), Appointment on: , Sent on: Sent Future Order: Lab Order TSH ([id number]), Appointment on: , Sent on: Sent Future Order: Lab Order HEMOGLOB IN A1C ([id number]), Appointment on: , Sent on: Sent Future Order: Lab Order MICROALB JAXON ALMODOVAR U(W/CR) ([id number]), Appointment on: , Sent on: Sent Future Order: Lab Order LIPID PA TATUM ([id number]), Appointment on: , Sent on: Sent Future Order: Lab Order Hemoglob in A1c ([id number]), Appointment on: , Sent on: Sent Future Order: Lab Order Vitamin B12 ([id number]), Appointment on: , Sent on: Sent Future Order: Lab Order Microalb /Creat Ratio, Rand Ur ([id number]), Appointment on: , Sent on: Sent Future Order: Lab Order Lipid Pa tatum With LDL/HDL Ratio ([id number]), Appointment on: , Sent on: Sent Future Order: Lab Order Basic Me tabolic Panel (8) ([id number]), Appointment on: , Sent on: Sent Future Order: Lab Order Pt Servi ce Center ([id number]), Sent on: Sent Future Order: Lab Order Microalb /Creat Ratio, Counts Include [facility] Ur ([id number]), Appointment on: , Sent on: Sent Future Order: Lab Order Basic Me tabolic Panel (8) ([id number]), Appointment on: , Sent on: Sent Future Order: Lab Order Pt Servi ce Center ([id number]), Sent on: Sent Future Order: Lab Order Hemoglob in A1c ([id number]), Appointment on: , Sent on: Sent Future Order: Lab Order CBC, Wayne telet; No Differential ([id number]), Appointment on: , Sent on: Sent Future Order: Lab Order Microalb /Creat Ratio, Counts Include [address] [facility] Ur ([id number]), Appointment on: , Sent on: Sent Future Order: Lab Order Basic Me tabolic Panel (8) ([id number]), Appointment on: , Sent on: Sent Future Order: Lab Order Pt Servi ce Center ([id number]), Sent on: Sent Future Order: Lab Order Basic Me tabolic Panel (8) ([id number]), Appointment on: , Sent on: Sent Future Order: Lab Order Pt Servi Center ([id number]), Sent on: Sent Future Order: Lab Order Basic Me tab Panel W/EGFR (8) ([id number]), Appointment on: , Sent on: Sent Future Order: Lab Order ALT ([id number]), Appointment on: , Sent on: Sent Future Order: Lab Order ALBUMIN ([id number]), Appointment on: , Sent on: Sent Future Order: Lab Order LH ([id number]), Appointment on: , Sent on: Sent Future Order: Lab Order PROLACTI N ([id number]), Appointment on: , Sent on: Sent Future Order: Lab Order SEX HORM ONE BINDING GLOBULIN ([id number]), Appointment on: , Sent on: Sent Future Order: Lab Order TESTOSTE MERRY,TOTAL ([id number]), Appointment on: , Sent on: Sent Future Order: Lab Order TSH ([id number]), Appointment on: , Sent on: Sent Future Order: Lab Order T4,FREE ([id number]), Appointment on: , Sent on: Sent Future Order: Lab Order HEMOGLOB IN A1C ([id number]), Appointment on: , Sent on: Sent Future Order: Lab Order MICROALB UMIN,RAND U(W/CR) ([id number]), Appointment on: , Sent on: Sent Future Order: Lab Order LIPID PA TATUM ([id number]), Appointment on: , Sent on: Sent Future Order: Lab Order ALBUMIN (ALB), Appointment on: Ordered Future Order: Lab Order SEX HORM ONE BINDING GLOBULIN (SHBG), Appointment on: Ordered Future Order: Lab Order Testoste merry (TESTO), Appointment on: Ordered Future Order: Lab [...] Lab Order Microalb /Creat Ratio, Rand Ur ([id number]), Appointment on: , Sent on: Sent Future Order: Lab Order Basic Me tabolic Panel (8) ([id number]), Appointment on: , Sent on: Sent Future Order: Lab Order Basic Me tab Panel W/EGFR (8) ([id number]), Appointment on: , Sent on: Sent Future Order: Lab Order ALT ([id number]), Appointment on: , Sent on: Sent Future Order: Lab Order TSH ([id number]), Appointment on: , Sent on: Sent Future Order: Lab Order HEMOGLOB IN A1C ([id number]), Appointment on: , Sent on: Sent Future Order: Lab Order MICROALB SCOOBYJAXON U(W/CR) ([id number]), Appointment on: , Sent on: Sent Future Order: Lab Order LIPID PA TATUM ([id number]), Appointment on: , Sent on: Sent Future Order: Lab Order HGB A1C ([id number]), Appointment on: , Sent on: Sent Future Order: Lab Order ALT ([id number]), Appointment on: , Sent on: Sent Future Order: Lab Order URINALYS IS ([id number]), Appointment on: , Sent on: Sent Future Order: Lab Order Lead, Bl ood (Adult) ([id number]), Appointment on: , Sent on: Sent Future Order: Lab Order MICROALB /CREATININE RATIO -RANDOM ([id number]), Appointment on: , Sent on: Sent Future Order: Lab Order LIPID NH OFILE ([id number]), Appointment on: , Sent on: Sent Future Order: Lab Order BASIC ME TABOLIC PANEL ([id number]), Appointment on: , Sent on: Sent History Of Present Illness Encounter Date Complaint History Of Prese nt Illness diabetes diabetes (comments) He is doing well. Status post AVR and CABG, completing cardiac rehab. No significant lows. Currently on Soliqua 40 units in the AM States FBS 150's. D 150's diabetes (comments) Here with gilbert hayward. Adm [...] Lost some weight. Eating OK. diabetes diabetes (comments) Son Rosetta, D in [place]. Weight gain with diet concnern and decrease mobility due to Sciatica-- Getting better. Soliqua 60 units a day [employer]. Fasting blood sugars mid 100's D Same diabetes diabetes (comments) To visit ricardo montes in [place]. He had muscle pain, we stopped the statin, but this is this did not help with the muscle pain but is improving but he developed sciatica. Chiropractor helped. Soliqua 60 units a day. No lows. PCP added two new medicines up his blood pressure. He saw his PCP for diizzy spells -- His PCP recommended Debrox ear cleaning. It sounds like he was given meclizine as well diabetes Right hip pain Onset several ye ars. [...] but he'll be seeing PT shortly diabetes diabetes (comments) Lives alone. Arm pain and [...] a torn anterior cruciate ligament coming up. Neck pain Onset 1 year. Se verity [...] Additional information: Pain, Numbness and Tingling. diabetes (comments) fo r three years. To [...] getting off divorce. 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 Soliqua 60 units no lows. States FBS [...] Denies lows. States FBS 140-150 D 120's. diabetes Colon Cancer Screening Colon Cancer Screeni jaya (comments) Had a COL 11 years ago, normal.No new symptoms. Is due for a repeat so presents today to discuss.PMH: type 2 Dm, CKD, HTN, HLPSH: no abdominal surgeriesMeds: no NSAIDs dailyAllergies: NKDAFH: no colon cancer diabetes (comments) Divorce and job is stressful but OK. Soliqua 50 units. No lows. States FBS 150-180 D 120's Numbness of both third fingers for past month or so diabetes diabetes (comments) Getting divo rced- Stressful Soliqua 50 units at NIGHT! No lows. States his fastings and dinnertime blood sugars are averaging 150s. diabetes diabetes diabetes(comments) Getting divor suresh. Works also stressful -too many jobs. Xigduo started last week- tolerating it OK. Toujeo 50 units at night. No lows, meter downloaded. Occas calf cramp at night--one episde last week. diabetes diabetes(comments) 's Camilo bray -remission- but marital strife. Had a herniated [...] information: Pain and Numbness. diabetes diabetes(comments) 's Camilo bray -remission- Stress with job--Personalities. He will work it out. Mother last May age 93. Toujeo 50 units at night. No lows. Noticed his meter is 50 points higher than his old machine. His fasting blood sugars on the old machine are 130s in the new machine 180s Dinner 120/160 (old/new). No lows. To see PCP numbess in RT knee for a few months--Humaira barton his PCP. diabetes diabetes(comments) ;'s tasia valentin -remission--Doing well! Toujeo 50 units in the PM No lows, No log. FBS 140-160. D 140's Ran out Bydureon 6 months ago. Nurse Comments fasting bg 06-26 diabetes(comments) Stress with w ork (better) and with 's medical problems (Cancer treatments) but now in remssion. Toujeo 50 units in the PM No lows. Forgot log. FBS 150-170 D 150-170, Denies lows. No complaints of snoring diabetes diabetes (comments) Stress with work and with 's medical problems (Cancer treatments) but better. Lantus 40 units in the PM No lows. Forgot log. Dinner 140-160. FBS 140-160 diabetes diabetes diabetes (comments) Stress with 's medical problems (Cancer treatments) but better. Some weight loss with better diet. No log. FBS 160-170 2 hrs post L 120's. Denies Lows Lantus 35 at night. diabetes diabetes (comments) Refused a fl u shot Metastatic melanoma--Doing OK. Lantus 30 units per day. No Log. FBS 140's L? D/Bed 180-190 Bed No lows. Diet is off and no exercising and missing 2+ shots of Lantus/Byetta per week. Ran out of metformin/Aceon/Lipitor 4 weeks ago. Functional Status Date Functional Assessmen t No [...] check labs now. Related to Mixed hyperlipidemia We will simplify his control. We will [...] 2 diabetes mellitus with hyperglycemia This is relatively stable. Relat ed to Type 2 diabetes mellitus with diabetic nephropathy Had been repleted. W ill check next visit. Related to B12 deficiency He is due for an ultrasound Rela jed to Bilateral carotid bruits He is in goal a statin. Related to Mixed hyperlipidemia He is in goal a statin. Related [...] 50% mild disease. ultrasound was done in 2020 We will recheck next visit. Related to Bilateral carotid bruits He is in goal. . His PCP apparently added medication and he'll call me with the names. Related to Essential (primary) hypertension He is less than 50% mild disease. ultrasound was done in 2020. We will recheck in 2022 Related to Bilateral carotid bruits This is relatively stable. Relat ed to Type 2 diabetes mellitus with diabetic nephropathy He is in goal a statin. Related to Mixed hyperlipidemia His A1c is improve s ignificantly what . Will not make any changes. A1c in office next visit. Related to Type 2 diabetes mellitus with hyperglycemia RIGHT HIP AND LE GRETCHEN N - [...] before breakfast and dinner are between 80 140 Related to Type 2 diabetes mellitus with hyperglycemia He is in goal. Related to Essen tial (primary) hypertension I asked him to hold [...] in 2022 Related to Bilateral carotid bruits We'll recheck next visit. Relate d to Type 2 diabetes mellitus with diabetic nephropathy As above. This is stable. Relate d to CKD (chronic kidney disease), stage I He is less than 50% mild disease. ultrasound was done generated 2020. Most likely will need around 2022. We'll treat this as above as well. Related to Bilateral carotid bruits Had been repleted. W ill check next visit. Related to B12 deficiency He is in goal a statin. Related to Mixed hyperlipidemia His A1c increased, m ost likely due to his cervical disease. He'll be seeing physical therapy so will not make an adjustment. Related to Type 2 diabetes mellitus with hyperglycemia - Subacromial inject ion today. Please see [...] 2020. Related to Bilateral carotid bruits He is in goal. We'll continue observing his morning dizziness. If this persists, if this persists, he needs to see his PCP Related to Essential (primary) hypertension He is in goal a statin. Related to Mixed hyperlipidemia Not sure why this key s increased. We'll recheck this in 2 months and on return. 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 Related to CKD ( chronic kidney disease), stage I He continues to make good progress. We'll not make any changes. Related to Type 2 diabetes mellitus with hyperglycemia - I will prescribe G abapentin 300mg [...] now. Related to Essen tial (primary) hypertension Stable. Related to CKD ( chronic kidney disease), stage I As before--Needs U/S Related to Bilateral carotid bruits Had been repleted. W ill check next visit. Related to B12 deficiency Will check next visit. Related t o Type 2 diabetes mellitus with diabetic nephropathy Improved. No change for now. Rel ated to Type 2 diabetes mellitus with hyperglycemia This is minimal but possibly present. We [...] kidney disease), stage I This is elevated tokeegan ay. He's been spiking intermittently and our [...] diabetes mellitus with diabetic nephropathy His triglycerides sh ould improve with the treatment of above. Related to Mixed hyperlipidemia He is in goal. Related to Essen tial (primary) hypertension We'll treat this as above. Relat ed to CKD (chronic kidney disease), stage I This most likely is due to lack of exercise. I encouraged him. Meanwhile, I'll increase the Soliqua to 60 units a day Related to Type 2 diabetes mellitus with hyperglycemia Lifestyle education regarding di et Related to Body mass index (BMI) 36.0-36.9, adult This has improved si gnificantly. I recommend increase the Soliqua to 56 units a day. Related to Type 2 diabetes mellitus with hyperglycemia He's on a statin Related to Mixe d hyperlipidemia This has improved Related to Typ e 2 diabetes mellitus with diabetic nephropathy This may be newly di scovered. I recommend he sees PCP. So Related to Heart murmur This is stable Related to CKD ( chronic kidney disease), stage I He does not seem to have carpal tunnel. I do recommend that he sees PCP. Related to Finger numbness I encouraged him to restart the B12 Related to B12 deficiency Slightly high today. We will watch without adjustment Related to Essential (primary) hypertension This most likely is due to metformin. We'll start 500 g of B12, [facility] approved, daily. We'll check labs next visit. [...] hyperglycemia He is in goal. Related to Essen tial (primary) hypertension This is stable. Continue statin. Related to Mixed hyperlipidemia This has improved. Related to Ty pe 2 diabetes mellitus with diabetic nephropathy His has improved los ble check next visit. 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 Related to CKD ( chronic kidney disease), stage I His blood pressures acceptable for now. Related to Essential (primary) hypertension We'll check labs nex t visit. He is on a statin. Related to Mixed hyperlipidemia his A1c is increase to my office [...] to Type 2 diabetes mellitus with hyperglycemia Marshall Alberto is making great progress with home [...] now. Rela jed to Essential (primary) hypertension Check lipids next visit. Related to Mixed hyperlipidemia His A1c my office 7. 5% and he has made a significant improvement. I gave him a new meter to compare. It seems like his old meter is more accurate Related to Type 2 diabetes mellitus with hyperglycemia We'll check his labs now to comp are. 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 We'll continu e. Related to Mixed hyperlipidemia He is in goal. Related to Essen tial (primary) hypertension His A1c increase mos t likely due [...] diabetes mellitus with hyperglycemia This is stable. We'l l treat this as above. 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 We'll treat this as above. Related to Essential (primary) hypertension He is on a statin. Related to Mi xed hyperlipidemia Distress. He still t oo high. Will increase Aceon 8 mg a day, check a blood pressure and labs in 2 weeks. Related to Hypertension, Benign This is acceptable for now Relat ed to Mixed Hyperlipidemia This has improved. W e'll dresses as above and below Related to PROTEINURIA His A1c is improved but still not in goal. We will change his Lantus to Toujeo 50 units a day, I asked to call me if his fastings and/or before meals and blood sugars are not averaging between 80-140 Related to Diabetes II, Uncontrolled, W/Renal Manifestations This is significantly improved R elated to PROTEINURIA His triglycerides ar e slightly elevated. It should improve with treatment of his diabetes. Related to Mixed Hyperlipidemia He is in goal Related to Hyper [...] check next visit. Related to Mixed Hyperlipidemia Restart Aceon. I ask ed him to send his blood pressure in 2 weeks. Related to Hypertension, Benign Treat as above Related to PROTE INURIA Assessments Type Assessment Date No Information Patient Care Teams Name Effective Dates (start - stop) Status Members No Information
--- NOTE | 2024-10-27 22:24 | A.OFFVIS_ITS ---
Intake Visit Reasons: 3m/CT Intake Note: Patient is present for a 3m/CT * Abdomen CT 10/05 Urology Med: None Antibiotic Allergy: None Blood Thinner: Aspirin Boiler Tube Reamer Required: No Accompanied by: Self / Same As Patient Allergies No Known Allergies Allergy (Verified 10/28/24 16:01) HPI Comments Details: 10/28/24--LV 07/29/24 discussed Results: Ultrasound retroperitoneum--06/28/24--3.1 x 2.5 x 3.1 cm complex cyst at the lower pole of the left kidney. CTA- renal mass protocol. 10/05/24--Bosniak II cyst in lower pole left kidney hairline septation/calcifications. Classified as a benign minimally complex cyst. Indeterminate lesion in the medial superior pole the right kidney is too small to characterize. (subcentemeter) 5mm x 8mm 07/29/24--Alberto is here for FU with complaints of urinary frequency and slowing of urinary stream. He denies irritative voiding symptoms, hematuria or dysuria. Nocturia 2-3 times. CoMorbidity - Diabetes. I reviewed ultrasound retroperitoneum results bladder within normal limits with adequate emptying. He is taking the tamsulosin daily with improvement in urinary symptoms. Discussed further evaluation with CT abdomen renal mass protocol. Results: Ultrasound retroperitoneum--06/28/24--3.1 x 2.5 x 3.1 cm complex cyst at the lower pole of the left kidney. 05/27/24--Alberto is here for evaluation with complaints of urinary frequency and slowing of urinary stream. He denies irritative voiding symptoms, hematuria or dysuria. Nocturia 2-3 times. CoMorbidity - Diabetes. PENDING SALE TO [facility] Medical History Diabetes mellitus Hyperlipidemia Hypertension Right bundle branch block Surgical History Aortic valve replaced S/P triple vessel bypass (~08/2022) Social History Alcohol intake: current Alcohol intake frequency: holidays/special occasions only Patient Tobacco Use Status: Former Tobacco user Substance Use Type: Marijuana Results AMB Urinalysis, Automated UA Leukoctes 0 Miriam/uL Last Edit by Juana Randolph on 10/28/24 16:51 UA Nitrite Negative Last Edit by Juana Randolph on 10/28/24 16:51 UA Urobilinogen 17 mg/dL Last Edit by Juana Randolph on 10/28/24 16:51 UA Protein 1 mg/dL Last Edit by Juana Randolph on 10/28/24 16:51 UA pH 6.0 Last Edit by Juana Randolph on 10/28/24 16:51 UA Blood 0 Power/uL Last Edit by Juana Randolph on 10/28/24 16:51 UA Specific [place] 1.015 Last Edit by Juana Randolph on 10/28/24 16:51 UA Ketone Negative Last Edit by Juana Randolph on 10/28/24 16:51 UA Bilirubin 0 mg/dL Last Edit by Juana Randolph on 10/28/24 16:51 UA Glucose 60 mg/dL Last Edit by Juana Randolph on 10/28/24 16:51 Results Reviewed Results Reviewed: Date of Service: 10/05/24 Procedure(s): CT abdomen wo/w IV con Accession Number(s): [id number] cc: Frances Chatman MD; Giuliana Lane NP~ Report Number: [id number]: Total DLP = 586.00 mGy-cm EXAMINATION: CT ABDOMEN WITHOUT AND WITH CONTRAST CLINICAL INFORMATION: Indeterminate left renal cyst, lower pole COMPARISON: Ultrasound Sep 15 2024 TECHNIQUE: Contiguous axial thin section helical images of the abdomen were performed before and after the administration of IV contrast and 85 mL of Omnipaque 350 intravenous contrast. The data set was reformatted in the coronal and sagittal planes and reviewed on an independent workstation. This CT examination was performed using dose optimization techniques as appropriate, variously including the following: *Automated exposure control *Adjustment of mA and/or kV according to patient size (this includes techniques or standardized protocols for targeted exams where dose is matched to indication/reason for exam; i.e. extremities or head) *Use of iterative reconstruction technique DLP: 586 mGY*cm FINDINGS: KIDNEYS: RIGHT KIDNEY: In the superior pole of the right kidney there is a lesion measuring 5 x 8 mm that is too small to characterize. Margins of the lesion are somewhat ill-defined. There is a lesion in the lower pole that is also too small to characterize. There is a simple renal cyst in the anterior lower renal pelvis. LEFT KIDNEY: Again seen is a lesion in the lower pole the left kidney. It measures 3.7 x 2.5 x 2.8 cm (transverse by AP by cc). It is mostly cystic with thin apparent less than 1 mm) internal septations. Thin linear calcification are also present. There is a simple renal cyst in the medial superior pole. LUNG BASES: There is a 11 mm groundglass nodular density in the lateral right lower lobe, adjacent to major fissure (series 8 image 07/11). LIVER, GALLBLADDER, AND BILIARY TREE: Mild fatty changes are present in the liver. The gallbladder is unremarkable. PANCREAS: Unremarkable SPLEEN: Unremarkable. There is a splenule inferiorly. ADRENAL GLANDS: Unremarkable BOWEL LOOPS: A few scattered pseudodiverticula are present throughout the colon without adjacent inflammation. LYMPH NODES: Normal. VASCULAR: Multifocal atherosclerotic calcific lesions are present in the abdominal aorta and mesenteric vessels. BONES: Osteophytes and disc space narrowing is most pronounced in the lower thoracic spine. CT/CT abdomen wo/w IV con IMPRESSION: Bosniak II cyst in lower pole left kidney hairline septation/calcifications. Classified as a benign minimally complex cyst. Indeterminate lesion in the medial superior pole the right kidney is too small to characterize. 11 mm groundglass nodular density in the right lower lobe. Fleischner Society states CT at 6-12 months to confirm persistence, then CT every 2 years until 5 years . Fatty liver. Date of Service: 07/16/24 HISTORY: N39.3 - Stress incontinence (female) (male) TECHNIQUE: Real-time grayscale ultrasound imaging of the kidneys was performed and images were reviewed. COMPARISON: There are no prior studies for comparison. FINDINGS: Right kidney: The right kidney measures 14.3 x 6.2 x 6.8 cm. Renal parenchymal echotexture and thickness are normal. There is a lower pole cyst measuring 1.3 x 1.0 x 1.4 cm. There is no hydronephrosis or renal calculi. Left Kidney: The left kidney measures 14.0 x 6.6 x 5.9 cm. Renal parenchymal echotexture and thickness are normal. There is a 1.2 x 1.4 x 1.3 cm exophytic cyst at the lower pole. An additional complex appearing cyst measuring 3.1 x 2.5 x 3.1 cm is noted at the lower pole. This demonstrates wall calcification. There is no hydronephrosis or renal calculi. The urinary bladder is unremarkable. Bilateral ureteral jets are identified. Before voiding, the urinary bladder measured 6.1 x 11.6 x 5.0 cm, for an estimated volume of 185 mL. After voiding, the urinary bladder measured 3.5 by 5.7 x 2.5 cm, for an estimated volume of 26 mL. Incidental note is made of a 2.5 cm splenule adjacent to the left kidney. IMPRESSION: 1. 3.1 x 2.5 x 3.1 cm complex cyst at the lower pole of the left kidney. Follow-up is recommended. 2. Post void bladder residual of 26 mL. Assessment & Plan Assessment & Plan (1) Lesion of lung: Code(s): R91.1 - Solitary pulmonary nodule Category: Medical (2) Renal mass of unknown nature: Code(s): N28.89 - Other specified disorders of kidney and ureter Category: Medical (3) Acquired complex renal cyst: Code(s): N28.1 - Cyst of kidney, acquired Category: Medical Orders: Orders AMB Urinalysis Automated Today Z13.9 - Encounter for screening, unspecified CT chest wo/w IV con 10 Months R91.1 - Solitary pulmonary nodule CT abdomen wo/w IV con 10 Months N28.1 - Cyst of kidney, acquired, N28.89 - Other specified disorders of kidney and ureter Coding Diagnoses Lesion of lung R91.1 Renal mass of unknown nature N28.89 Acquired complex renal cyst N28.1
--- OUTSIDE RECORDS SUMMARY | 2024-10-28 15:54 | XMS_ITS | Continuity of Care Document ---
Author Organization [facility] [address] [place] [address] Phone [phone] Care Team Providers Care [employer] Name Role Phone RICKI Hickman Care Team Information R eceiver [phone] Problems Active Problems Provider Date Hyperlipidemia EMIR [...] Medications SIG Qnty Indications Ordering Provider Date Mounjaro7.5mg/0.5ML Solution Auto-Inject inject 7.5 mg weekly under the skin as directed 2ml E11.42 Stephanie Ordonez M.D. 10/07/2024 I25.10 Z95.1 Xigduo XR5-1000mg Tablets ER 24HR Take 1 tab by mouth twice a day 30tabs Stephanie bautista M.D. Tamsulosin HCL0.4mg Capsules Unknown Jixhqtwgyc12en Tablets RICKI Palma Freestyle Elina 3 Plus/Sensor/Glucose Monitoring SystemMisc RICKI Hickman [id number] Capsules Once a day Brad GiordanoRICKI Atorvastatin Jajqknd40dr Tablets FELISA Hickman-Wai BD Pen Needle/Short/Ultra-Fine/ 31G X 8mm31G X 8 mm Misc Unknown Metoprolol Succinate ER25mg Tablets ER 24HR Ariana Giordano [employer] Onetouch VerioStrips Ariana Giordano [employer]Wai History Medications Mounjaro2.5mg/0.5ML Solution Auto-Inject inject 2.5 mg weekly under the skin as directed 2ml E11.42 Stephanie Ordonez M.D. 07/06/2024 - 07/06/2024 I25.10 Z95.1 Bofohigb8xc/0.5ML Solution Auto-Inject inject 5 mg weekly under the skin as directed 2ml E11.42 Stephanie Ordonez M.D. 07/06/2024 - 10/07/2024 I25.10 Z95.1 Vital Signs Date Vital Result Comment 10/07/2024 3:34pm BP Systolic 128 mmHg BP Diastolic 72 mmHg Heart Rate 74 /min Height 65 inches 5'5 Weight 215.25 lb BMI (Body Mass Index) 35.8 kg/m2 Results Test Acquired Date Facility Test Result H/L Range N ote Glucose Fingerstick 10/07/2024 Inhouse Glucose Fingerstick 132 Hemoglobin A1c 10/07/2024 Inhouse Hemoglobin A1c 7.7% Glucose Fingerstick 07/06/2024 Inhouse Glucose Fingerstick 93 Hemoglobin A1c 07/06/2024 Inhouse Hemoglobin A1c 8.1% Procedures Date Code Description Status 10/07/2024 13120 Glucose Monitoring Interpeta tion And Report Completed Medical Devices Description No Information Available Encounters Type Date Location Provider Dx Diagnosis Office Visit 10/07/2024 3:15p Main Office EMIR Noel 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 Z95.1 Presence of aortocor onary bypass graft I10 Essential (primary) hypertension E78.5 Hyperlipidemia, unsp ecified E66.9 Obesity, unspecified Z68.35 Body mass index [BMI ] 35.0-35.9, adult Assessments Date Code Description Provider 10/07/2024 E11.42 Type 2 diabetes mellitus with diabetic polyneuropathy EMIR Noel 10/07/2024 I25.10 Atherosclerotic heart disease of [place] coronary artery without angina pectoris EMRI Noel 10/07/2024 Z95.1 Presence of aortocoronary by pass graft EMIR Noel 10/07/2024 I10 Essential (primary) hyperten ramon EMIR Noel 10/07/2024 E78.5 Hyperlipidemia, unspecified EMIR Noel 10/07/2024 E66.9 Obesity, unspecified EMIR Noel 10/07/2024 Z68.35 Body mass index [BMI] 35.0-3 5.9, adult EMIR Noel Plan of Treatment Future Appointment(s):* 01/06/2025 3:15 pm - Sylvie Malcolm NP at Main Office 10/07/2024 - EMIR Noel* E11.42 Type 2 diabetes mellitus with diabetic polyneuropathy * I25.10 Atherosclerotic heart disease of [place] coronary artery without angina pectoris * Z95.1 Presence of aortocoronary bypass graft * I10 Essential (primary) hypertension * E78.5 Hyperlipidemia, unspecified * E66.9 Obesity, unspecified * Z68.35 Body mass index [BMI] 35.0-35.9, adult* New Medication:* Mounjaro 7.5 mg/0.5ML Functional Status Description No Information Available Mental Status Description No Information Available Referrals Description No Information Available
== END 2024-10-28 16:31 | disposition home or self-care (01) ==
PROVIDERS: PCP Registered Nurse; Visit Provider Urology
DX: Z13.9 Encounter for screening, unspecified (principal)

== ENCOUNTER → 2024-10-28 15:51 | Outpatient (BNVA) | payer OTHER, SELFPAY | PROVIDERS: PCP Registered Nurse; Visit Provider Urology | DX: N28.89 Other specified disorders of kidney and ureter (principal); N28.1 Cyst of kidney, acquired; R91.1 Solitary pulmonary nodule | CPT/HCPCS: 81003 ==